=== PATIENT | female | born 1940 | race Caucasian/White ===

== ENCOUNTER → 2020-07-18 07:23 | Outpatient (CLI) | payer MEDICARE, OTHER, SELFPAY ==
--- NOTE | 2020-07-18 | DI.NM.S_ITS ---
PROCEDURE: NM PEPE PERF SPECT R&S PHARM Rest and pharmacological stress myocardial perfusion SPECT with gated imaging and ejection fraction RADIOPHARMACEUTICAL: 12.2 mCi Tc-99m tetrafosmin IV at rest and 25.4 mCi Tc-99m tetrafosmin IV at peak effect of pharmacological stress. Uwa-mry-ynikasdl was performed. INDICATIONS: Encounter for other preprocedural examination TECHNIQUE: Radiopharmaceutical was injected at peak stress test, and also at rest. SPECT images were obtained. SPECT myocardial perfusion images were displayed in short axis, horizontal long axis, and vertical long axis views. Gated images were reviewed using [employer] software. COMPARISON: None. CARDIAC STRESS: A pharmacologic stress test was performed under the supervision of an attending staff, using an infusion of lexiscan 0.4mg IV X1. Hemodynamic data: There is normal blood pressure and heart rate response to pharmacologic stress. Symptoms: The patient denied anginal chest pain. Aminophylline: none EKG: No diagnostic changes of ischemia; no ectopy. FINDINGS: Raw data: There is good myocardial uptake of radiotracer. No significant motion artifacts. Snnd-oq-jxdpy ratio is 0.26 (normal is less than 0.38 for tetrafosmin tracer). Left ventricle function: Gated images demonstrate normal left ventricular wall thickening. No segmental wall motion abnormalities. No transient ischemic dilation. Left ventricle resting end diastolic volume is 67 mL. Left ventricle stress ejection fraction is 84%; normal range is above 45%. Myocardial perfusion: There is normal distribution of activity in the right and left ventricular myocardium. No fixed or reversible perfusion defects. IMPRESSION: Low risk, normal pharmaceutical nuclear stress test 1) No perfusion evidence of ischemia or infarction. 2) Normal left ventricular size, wall motion, and systolic function (EF post stress 84%). 3) No ECG evidence of ischemia. 4) No angina during the study. 5) No prior nuclear stress test available for comparison. Dictated by: Day Fontanez MD on 07/18/2020 at 16:15 Approved by: Day Fontanez MD on 07/18/2020 at 16:17
--- NOTE | 2020-07-18 13:16 | PM.TREADMILL ---
Cardiac Stress Test Report Referral & Results Date Patient Seen: 07/18/20 Time Patient Seen: 13:17 Requesting provider: Day Fontanez Indication: Pre-procedural examination Rest ECG: Sinus rhythm with PACs with nonspecific ST abnormalities Procedure Note: After Lexiscan injection had minimal dyspnea and no chest discomfort. After Lexiscan injection no significant ST changes Rare PVCs Impression: Normal Lexiscan injection Please note: Actual ECG tracings can be found in the PACS system.
== END ==
PROVIDERS: PCP Physician Assistant Medical; Referring Provider Internal Medicine Cardiovascular Disease; Visit Provider Internal Medicine Cardiovascular Disease
DX: Z01.818 Encounter for other preprocedural examination (principal); I25.10 Atherosclerotic heart disease of native coronary artery without angina pectoris; Z95.1 Presence of aortocoronary bypass graft
CPT/HCPCS: 78452; 93017; A9502; J2785

== ENCOUNTER 2020-09-05 12:32 | Inpatient (IN) | payer MEDICARE, OTHER, MEDICAID, SELFPAY ==
[2020-08-28 08:50] VITALS: BMI 33.8
[2020-09-05] VITALS (14 sets, daily range): BP systolic 122–156; BP diastolic 66–97; PULSE 72–94; RESP 10–21; TEMP 35.3–37.1; O2SAT 92–98; BMI 33.8
[2020-09-05] MEDS: LACTATED RINGERS 1,000 ML 42 ML IV ×2 (13:50→17:45)
[2020-09-05] MEDS: GABAPENTIN 300 MG CAPSULE PO (13:51)
[2020-09-05] MEDS: ACETAMINOPHEN 325 MG TABLET 975 MG PO (13:51)
[2020-09-05 13:52] LABS: COVID19 -Nasal RAPID Negative (Negative)
--- NOTE | 2020-09-05 15:35 | PM.PREOP ---
Pre-operative Note COVID-19 COVID-19 status: Negative Result date/Date tested (Pos, Neg/Pending): 09/03/20 Interval Note History & Physical reviewed/Exam performed by Physician: Yes Changes to H&P: No
[2020-09-05] MEDS: CEFAZOLIN 1 GM VIAL 2 GM IV ×2 (16:24→20:19)
--- NOTE | 2020-09-05 16:45 | SUR.OPER ---
Prone on spine table, head in foam head support, padded chest and pelvic supports, gel pad at knees, lower legs supported by pillows; nipples, genitalia and toes free of pressure, arms secured on foam padded arm boards at <90 degrees abduction. Tape over blanket at thigh secured to table.
[2020-09-05] MEDS: BUPIVACAINE LIPOSOME 266 MG/20 ML VIAL INJ (16:52)
[2020-09-05] MEDS: BUPIVACAINE 0.25% (PF) VIAL 30 ML INJ (16:52)
--- NOTE | 2020-09-05 18:23 | DI.RAD.S_ITS ---
PROCEDURE: XR LUMBAR SPINE 2-3V INDICATIONS: L4-5 TLIF TECHNIQUE: 2 intraoperative fluoroscopic spot films were obtained COMPARISON: None. FINDINGS: Two intraoperative fluoroscopic spot films show posterior shahnaz and screw instrumentation at L4 and L5 with interbody spacer in place. IMPRESSION: Fluoroscopic guidance Dictated by: Vern Diaz M.D. on 09/05/2020 at 18:00 Approved by: Vern Diaz M.D. on 09/05/2020 at 18:07
--- NOTE | 2020-09-05 18:32 | P.OP_ITS ---
Operative Date/Time/Diagnoses Date of procedure: 09/05/20 Time of procedure: 18:32 Pre-op diagnosis: 1. L4-5 spondylolisthesis 2. 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 L4-5 spondylosis with radiculopathy 4. L4-5 spinal stenosis 5. Retained non-functional spinal cord stimulator causing pain Post-op diagnosis: same Procedure & Clinicians Procedure: 1. L4-5 Postero-lateral and posterior interbody fusion 2. L4-5 interbody cage placement. 3. L4-5 decompressive laminectomy with bilateral facetecomies 4. L4-5 Posterior non-segmental instrumentation 5. [place] of bone marrow from iliac crest 6. Utilization of microsurgical technique and operating microscope 7. Removal of spinal cord stimulator and electric leads Same procedure as scheduled: Yes Indications: Patient has been having chronic back pain and worsening lumbar radiculopathy. Patient had previous laminectomy with no significant improvement of her symptoms with worsening leg pain and back pain. Patient had a nonfunctional spinal cord stimulator since 2017 with pain secondary to soft tissue irritation due to the spinal cord stimulator. Patient failed multiple conservative management with worsening pain weakness and numbness in her lower extremity. Patient has been having difficulty performing activity of daily living. After discussing risks benefits of treatment options, patient elected proceed with surgery. Surgeon: Jeanette Batres Guard Entrance Registrar: Amari Griffith Click Yes if Unassisted: No Anesthesia Type: General Operative Notes Closure Type: primary Specimen(s): none sent Prosthetic devices, grafts, tissues, transplants, or devices: Globus revolve screws, Rise cage Estimated Blood Loss (mL): 50 Blood products transfused: none Procedure in detail: Patient was seen in the preoperative area. Risks and benefits of the surgery was discussed with the patient. Informed consent was obtained from the patient and placed in the chart. Surgical site was marked. Patient was taken to the operative room. General anesthesia was administered. Prophylactic antibiotic was given to the patient less than 30 min before the incision was made. Patient was placed into a prone position on the Agus table. Patient's back was then prepped and draped in the sterile fashion. Time- out was performed at this time. Using AP and lateral C-arm imaging the interval between L4-5 was identified and marked on patient's back. A 2 inch incision 2 in from midline was made on the right side first. The fascia was incised in line with skin incision. Globus MARS retractors was placed inside the incision and docked onto the L4 lamina. Using microsurgical technique and operating microscope, a L4 laminectomy and L4- 5 facetectomy was performed using a Kerrison rongeur. Patient was found to have severe central and neural foramen stenosis at L4-5 level which was fully decompressed after the laminectomy and facetectomy was completed. The disc space at L4-5 was identified. And a total diskectomy was performed at L4-5 level. The endplates were decorticated using a rasp and shaver. The total diskectomy and decortication was performed at L4-5 level in order to to accomplish a L4-5 fusion. The local bone from the laminectomy and facetectomy was saved for local bone grafting. After the total diskectomy and decortication was completed, Trifecta bone graft material was combined with local bone that was harvested earlier. At this time, a separate skin is incision was made over the iliac crest. A Jamshidi needle was inserted into the iliac crest through a separate skin incision. 5 cc of bone marrow aspiration was obtained through the separate skin incision using a Jamshidi needle from the iliac crest. The bone marrow aspiration was combined with local bone and the Trifecta bone grafting material. The bone grafting material was placed into the L4-5 interbody space along with a expandable cage. The cage was expanded to its maximum height using the torque limiting screwdriver. At this time a mirror image incision was made on the left side. The fascia was incised in line with the skin incision. Globus MARS retractor was inserted and docked onto the L4-5 posterolateral gutter. Using the power drill, posterior- lateral decortication was performed at L4-5 level until bleeding cortical bone was identified. The remaining bone grafting material was placed into the L4-5 posterior lateral gutter he order to accomplish posterolateral fusion at the L4- 5 level. Using the double C-arm technique, pedicle screws were placed into the L4-5 pedicles bilaterally. This was done by placing the Jamshidi needle into the pedicles, then placing the guidewires over the Jamshidi needle, and finally placing the cannulated screws over the guidewires bilaterally. After the pedicle screws were placed, 2 titanium rods was locked into the heads of the pedicle screws using locking caps and torque limiting screwdriver. The right-sided incision was extended cephalad approximately 2 in in order to identify the electric leads of the spinal cord stimulator. The leads was found to be wrapped into a bundle and scarred into the subcutaneous tissue. Using both the Bovie and scissors, the electrode leads was freed from the soft tissue. The lead was followed laterally until we reached the spinal cord stimulator device. Dissection was made around this device in order to free it up and was removed from the subcutaneous tissue without any difficulty. The electric lead was not in the spinal canal as expected as shown on the CT scan. After all the hardware was placed, and confirmed with AP and lateral C-arm imaging, the wound was then irrigated with sterile normal saline and packed with Ray-Evette gauze for 3 min to accomplish hemostasis. After the gauze was removed the deep fascia was closed with #1 Vicryl suture. The subcutaneous layer was closed with 2-0 Vicryl. The skin was closed with skin netta. Patient tolerated the procedure well. There were no complications. Complications: none Post-operative Condition: stable Disposition: PACU Plan for aftercare: Admit to inpatient hospital
[2020-09-05] MEDS: fentaNYL 100 MCG/2 ML INJ IV (18:50)
[2020-09-05] MEDS: OXYCODONE IR 5 MG TABLET PO (19:09)
--- NOTE | 2020-09-05 19:39 | SUR.PHASEI ---
Upper dentures and sunglasses returned to pt. All other belongings brought to pt room. Report called to ABHISHEK Feng. Pt transferred to room 212 in stable condition. Received in room by ABHISHEK Guerra.
[2020-09-05] MEDS: SODIUM CHLORIDE 0.9% 1,000 ML 100 ML IV (20:14)
[2020-09-05] MEDS: OXYCODONE IR 5 MG TABLET 10 MG PO (20:18)
[2020-09-05] MEDS: ALPRAZolam 0.5 MG TABLET PO (20:18)
[2020-09-05] MEDS: ATORVASTATIN 20 MG TABLET 10 MG PO (20:20)
[2020-09-05] MEDS: SENNOSIDES 8.6 MG TABLET 17.2 MG PO (20:20)
[2020-09-05] MEDS: CARBIDOPA-LEVODOPA 25/100 TABLET 1 EACH PO (20:20)
[2020-09-05] MEDS: GABAPENTIN 100 MG CAPSULE PO (20:20)
[2020-09-05] MEDS: DOCUSATE 100 MG CAPSULE PO (20:20)
[2020-09-05] MEDS: ALBUTEROL 2.5 MG/3 ML NEB (ADULT) INH (22:20)
[2020-09-06] VITALS (8 sets, daily range): BP systolic 108–137; BP diastolic 67–93; PULSE 75–85; RESP 16–18; TEMP 36.1–36.6; O2SAT 95–98
[2020-09-06] MEDS: hydrOXYzine pamoate 25 MG CAPSULE PO ×4 (00:17→22:20)
[2020-09-06] MEDS: OXYCODONE IR 5 MG TABLET 10 MG PO ×4 (01:15→22:19)
[2020-09-06] MEDS: CEFAZOLIN 1 GM VIAL 2 GM IV (05:53)
[2020-09-06 06:11] LABS: Hematocrit 33.2 % (36-46); Hemoglobin 11.4 g/dL (12.0-16.0)
[2020-09-06] MEDS: CARBIDOPA-LEVODOPA 25/100 TABLET 1 EACH PO ×3 (08:31→16:18)
[2020-09-06] MEDS: DOCUSATE 100 MG CAPSULE PO ×2 (08:32→22:13)
[2020-09-06] MEDS: OXYBUTYNIN 5 MG ER TAB 10 MG PO (08:33)
[2020-09-06] MEDS: GABAPENTIN 100 MG CAPSULE PO ×3 (08:33→22:12)
[2020-09-06] MEDS: lisinopriL 10 MG TABLET PO (08:34)
--- NOTE | 2020-09-06 10:10 | PT.IIE ---
Current Diagnoses Spondylolisthesis, lumbar region (09/05/20) Spinal stenosis, lumbar region with neurogenic claudication (09/05/20) Postlaminectomy syndrome, not elsewhere classified (09/05/20) Surgery Performed Operation Date: 09/05/20 14:45 Actual Procedures p L4-5 TLIF and Removal of Spinal Cord Stimulator - Jeanette Batres MD Medical History (Last Reviewed 09/06/20 @ 10:51 by Amari Griffith PA-C) Gait instability HLD (hyperlipidemia) HTN (hypertension) Lumbar radiculopathy Right foot drop Physical Therapy Inpatient Evaluation/Re-Eval M1 PT/OT-IP Prior Functional Status Start: 09/06/20 13:04 Freq: NEEDED Status: Active Protocol: Document 09/06/20 13:04 CGR (Rec: 09/06/20 13:35 CGR [id number]) Medical Review Prior Functional Status Medical History Reviewed Yes Communication Pt is an effective verbal communicator. Mobility and Gait Pt states that she was bedbound at her assisted living. Pt used the marlene lift because staff was uncomfortable with transfers from a hx of falls. Activities of Daily Living and IADL's Pt was dependent at her baseline. Social History Household Members other Living Arrangements Assisted Living Home Equipment Manual Wheelchair,Power Wheelchair/Scooter,Bedside Commode Additional Social History Comment B bed canes. Pt has a broken electric w/c at this time. M2 PT-IP Current Condition Start: 09/06/20 13:20 Freq: NEEDED Status: Active Protocol: Document 09/06/20 10:10 AB (Rec: 09/06/20 13:43 AB [id number]) Physical Therapy Current Condition Current Condition Evaluation Date 09/06/20 Treatment Diagnosis s/p L4-5 fusion; difficulty in walking Precautions Lumbar Precautions Log Roll,No Twisting,Limit Bending,Lifting Restriction of 10 lbs,Gait Belt above Incisional Area M3 PT-IP Subjective Start: 09/06/20 13:20 Freq: NEEDED Status: Active Protocol: Document 09/06/20 10:10 AB (Rec: 09/06/20 13:43 AB [id number]) Subjective Physical Therapy Visit Type Type Initial Evaluation Visit Start Time 10:10 Visit Stop Time 11:20 Total Visit Minutes 70 Number of EDITORIAL SPECIALIST Visits 0 Physical Therapy Visit Comments Patient Comments pt is agreeable to do PT Therapy Pain Assessment Pain When Pain Assessed At Rest Pain Present Pain Present Pain Reported Location Bilateral Leg Scale Used increases with mobility, pain scale not stated Pain Management Techniques Distraction,Modification of Treatment,Re-positioning, Timing of Activity with Medications back Intensity 3 Scale Used Numeric (0 - 10) M4 PT-IP Mobility and Gait Start: 09/06/20 13:20 Freq: NEEDED Status: Active Protocol: Document 09/06/20 10:10 AB (Rec: 09/06/20 13:43 AB [id number]) PT-Bed Mobility Assessment Rolling Level of Assist Maximal Assistance,2 Person Assistance Supine to Sit Supine to Sit Maximum Assistance,2 Person Assistance,Bedrails Scooting Scooting to Edge of Bed Maximum Assistance PT-Transfer Assessment Sit to and From Stand Sit to and from Stand Moderate Assistance,2 Person Assistance,Use of Upper Extremities Equipment Transfer Assistive Device Gait Belt,Front Wheeled Walker Orthotic/Prosthetic Devices or Brace: No Transfers Transfer Destination Chair Transfer Technique Stand Step Pivot Transfer Ability Level of Assist Moderate Assistance,2 Person Assistance,Use of Upper Extremities Comments Mobility Comments educated pt on back precautions and log roll bed mobility. pt stated that her brief needs to be changed first before she gets up and NAC in room to assist. PT was able to complete rolling L<>R max A x 2 and max cues. OT came in afterwards to assist. pt completed log roll bed mobility supine to sit max A x 2 and max cues. pt was able to sit on EOB initially with mod to max A with increase posterior leaning. positioned pt on the bed and required max A x 2 for scooting to EOB. pt was able to sit with CGA. pt completed sit to stand mod A x 2 and cues and completed step transfer to chair mod A x 2 and max cues. pt agreed to ambulate and completed ~ 7 ft mod A x 2 and cues. presents with decrease JOSÉ MIGUEL with RLE crossing over midline. required assist with weight shifting to be able to move RLE forward. pt agreed to sit up on chair. c/o BLE pain but stated that she will try to stay up for lunch but wants PT immendiately after for her to get up to bed. positioned pt on the chair. call light and table placed within reach. Gait Assessment Gait Gait Assistance Required: Moderate Assistance,2 Person Assist Distance (Feet) 7 Able to Maintain Weight Bearing Status Yes During Gait Assistive Devices Assistive Device Gait Belt,Front Wheeled Walker Orthotic/Prosthetic Devices or Brace: No Gait Deviations General Gait Pattern Antalgic,Decreased Stride Length,Decreased Feet Clearance,Flexed Trunk,Step-to Gait Factors Limiting Gait Function Factors Limiting Gait Function Decreased Activity Tolerance, Decreased Sensation,Decreased Strength,Limited Range of Motion,Pain,Poor Balance,Poor Safety Awareness Comments Gait Comments pls refer to mobility section for details PT-Balance Assessment Sitting Balance and Reactions Static Sitting Balance Ability Fair Dynamic Sitting Balance Ability Poor Standing Balance and Reactions Static Standing Balance Ability Poor Dynamic Standing Balance Ability Poor Device Used FWW M5 PT-IP Objective Assessments Start: 09/06/20 13:20 Freq: NEEDED Status: Active Protocol: Document 09/06/20 10:10 AB (Rec: 09/06/20 13:43 AB [email or web address]) Orientation Orientation/Cognition Level of Alertness Alert Orientation Name,Situation Safety Awareness Decreased Safety Awareness Memory Description Short Term Impaired Gross Range of Motion Lower Extremity ROM Assessment Right Impaired Impairments RLE tightness noted with decreas hip/knee flexion decrease R ankle ROM Strength Lower Extremity Strength Assessment Bilaterally Impaired Comments Strength Comments LLE: 3+/5 RLE: 3-/5 Sensation Assessment Sensation Gross Sensation Right LE Impaired,Left LE Impaired Sensation Description Numbness Other Assessments Other Other Assessments slight rigidity noted on RLE with tightness /resistance during flexion ROM M6 PT-IP Treatment Start: 09/06/20 13:20 Freq: NEEDED Status: Active Protocol: Document 09/06/20 10:10 AB (Rec: 09/06/20 13:43 AB [email or web address]) Physical Therapy Treatment Education Education Provided Precautions,Weight Bearing Status,Post-Op Packet,Safety M7 PT-IP Assessment and Plan Start: 09/06/20 13:20 Freq: NEEDED Status: Active Protocol: Document 09/06/20 10:10 AB (Rec: 09/06/20 13:43 AB [email or web address]) PT Summary Assessment and Plan Potential Rehabilitation Potential Good Status of Condition at Evaluation Evolving Summary Impairments Pain,ROM,Strength,Balance, Coordination,Sensation,Tone, Cognition,Bed Mobility, Transfers,Gait,Activity Tolerance Assessment Summary pt requiring max A x 2 for bed mobility and mod A x2 for transfers and ambulation using FWW. pt will benefit from SNF rehab to improve strength and mobility. Goals Bed Mobility Goal Minimal Assistance Transfer Goal Minimal Assistance,Front Wheeled Walker Gait Goal Minimal Assistance,Front Wheel Walker Gait Distance 50 Other Goals improve bed mobility and transfers using FWW SBA improve ambulation using FWW SBA 100 ft Days to Meet Goals 10 Frequency of Treatment Frequency Of Treatment Twice a Day Treatment Plan Physical Therapy Treatment Plan Bed Mobility Training,Transfer Training,Gait Training, Therapeutic Exercise,Balance Retraining,Post Op Education, Discharge Planning,Hot or Cold Pack,Neuromuscular Re-ed, Coordination Retraining,Manual Therapy Precautions Lumbar Precautions Log Roll,No Twisting,Limit Bending,Lifting Restriction of 10 lbs,Gait Belt above Incisional Area Recommendations To Nursing Amount of Assist Needed 2 Person Assist Discharge Recommendations PT Discharge Recommendations SNF Rehab Transportation Needs at Discharge Wheelchair/Cabulance
--- NOTE | 2020-09-06 10:49 | PM.PNPO.1 ---
Subjective Subjective Date Patient Seen: 09/06/20 Time Patient Seen: 10:49 Interval history: Pain is [id number]. Denies fever or chills. No nausea or vomiting. Exam Vital Signs (past 8 hours): - 09/06/20 03:00 09/06/20 08:00 09/06/20 08:34 Temperature 97.0 F L 97.6 F Pulse Rate 85 85 75 Respiratory Rate 18 18 Blood Pressure 133/84 137/93 H 137/93 H Pulse Oximetry 96 95 Oxygen Delivery Method Nasal Cannula Oxygen Flow Rate 0 Narrative Exam Narrative: 80-year-old female resting comfortably in bed in no apparent distress. Lumbar dressing shows scant drainage. Both legs are warm and dry. Patient requires 2 person assist to roll on side to check her dressing. Const General: cooperative Objective Labs Result Diagrams: 09/06/20 06:00 Labs: Laboratory Results - last 24 hr 09/05/20 09/06/20 13:28 06:00 Hgb 11.4 L Hct 33.2 L SARS-CoV-2 (PCR) Negative PFSH Medical History Gait instability HLD (hyperlipidemia) HTN (hypertension) Lumbar radiculopathy Right foot drop Surgical History H/O heart bypass surgery H/O lumbosacral spine surgery Family History Father Heart disease, congenital Mother Congestive heart failure Social History household members: other Smoking Status: Never smoker alcohol intake: never Assessment & Plan Post-op Postoperative Procedures: Procedures Operation Date: 09/05/20 14:45 Actual Procedure Side Surgeon p L4-5 TLIF and Removal of Spinal Cord Stimulator Jeanette Batres MD Postoperative day: 1 Postoperative status narrative: Stable status post surgery. Postoperative plan narrative: Mobilize with physical therapy. Limit bending, twisting, lifting. Likely discharge 1-2 days detention facility versus home.
--- NOTE | 2020-09-06 11:14 | OT.IP.EVAL ---
Current Diagnoses Spondylolisthesis, lumbar region (09/05/20) Spinal stenosis, lumbar region with neurogenic claudication (09/05/20) Postlaminectomy syndrome, not elsewhere classified (09/05/20) Surgery Performed Operation Date: 09/05/20 14:45 Actual Procedures p L4-5 TLIF and Removal of Spinal Cord Stimulator - Jeanette Batres MD Past Medical History (Last Reviewed 09/06/20 @ 10:51 by Amari Griffith PA-C) Gait instability H/O heart bypass surgery H/O lumbosacral spine surgery HLD (hyperlipidemia) HTN (hypertension) Lumbar radiculopathy Right foot drop Surgical History (Last Reviewed 09/06/20 @ 10:51 by Amari Griffith PA-C) H/O heart bypass surgery H/O lumbosacral spine surgery Occupational Therapy Inpatient Evaluation/Re-Eval M1 PT/OT-IP Prior Functional Status Start: 09/06/20 13:04 Freq: NEEDED Status: Active Protocol: Document 09/06/20 13:04 CGR (Rec: 09/06/20 13:35 CGR [id number]) Medical Review Prior Functional Status Medical History Reviewed Yes Communication Pt is an effective verbal communicator. Mobility and Gait Pt states that she was bedbound at her assisted living. Pt used the marlene lift because staff was uncomfortable with transfers from a hx of falls. Activities of Daily Living and IADL's Pt was dependent at her baseline. Social History Household Members other Living Arrangements Assisted Living Home Equipment Manual Wheelchair,Power Wheelchair/Scooter,Bedside Commode Additional Social History Comment B bed canes. Pt has a broken electric w/c at this time. M2 OT-IP Current Condition Start: 09/06/20 13:04 Freq: Status: Active Protocol: Document 09/06/20 13:04 CGR (Rec: 09/06/20 13:35 CGR [id number]) Occupational Therapy Current Condition Current Condition Evaluation Date 09/06/20 Treatment Diagnosis L4-5 TLIF Diagnosis Onset Date 09/05/20 Post Operative Precautions Lumbar Precautions Log Roll,No Twisting,Limit Bending,Lifting Restriction of 10 lbs,Gait Belt above Incisional Area M3 OT- IP Subjective and Pain Start: 09/06/20 13:04 Freq: Status: Active Protocol: Document 09/06/20 13:04 CGR (Rec: 09/06/20 13:35 CGR [id number]) OT- Subjective Occupational Therapy Visit Type Type Initial Evaluation Visit Start Time 10:44 Visit Stop Time 11:14 Total Visit Minutes 30 Notes co-treat with P.T. OT Pain Assessment Pain When Pain Assessed At Rest Pain Present Pain Present Pain Reported Location back Intensity 3 Scale Used Numeric (0 - 10) Management Techniques Modification of Treatment,Re- positioning,Timing of Activity with Medications M4 OT- IP ADL's Start: 09/06/20 13:04 Freq: Status: Active Protocol: Document 09/06/20 13:04 CGR (Rec: 09/06/20 13:35 CGR [id number]) OT [id number] Comments OT Self-Feeding Comments not meal time OT ADL-Grooming Comments OT Grooming Comments Pt declined OT ADL-Oral Care Comments Oral Care Comments Not performed OT ADL-Dressing General Eval Lower Body Dressing Ability Total Assistance Areas Needing Assistance Socks OT ADL-Toileting Comments OT Toileting Comments Not performed OT ADL-Bathing Comments OT Bathing Comments Not performed M5 OT- IP IADL's Start: 09/06/20 13:04 Freq: Status: Active Protocol: Document 09/06/20 13:04 CGR (Rec: 09/06/20 13:35 CGR [id number]) OT-Instrumental Activities of Daily Living Deficits IADL Deficits Identified Deficits Home Safety Awareness Awareness of Need for Assistance at Home Good Awareness Ability to Problem Solve Emergency Able to Problem Solve Situations Medication Management Medication Management Caregiver Administers Money Management Money Management No Deficits Identified Meal Preparation Meal Preparation Caregiver Provides Assist Naprapath Naprapath Caregiver Provides Assist Driving Driving Comments Pt is not an active sales route driver M6 OT- IP Functional Cognition Start: 09/06/20 13:04 Freq: Status: Active Protocol: Document 09/06/20 13:04 CGR (Rec: 09/06/20 13:35 CGR [id number]) Cognitive Factors Limiting Selfcare Function Cognitive Ability Level of Alertness Alert Patient Orientation Name,Age,Birthday,Month,Date, Year,Day of Week,Place, Situation Attention Span Ability Capable of Focused Attention, Capable of Sustained Attention OT- Vision and Hearing OT- Hearing Assessment OT- Hearing Assessment Hearing Impaired OT- Vision Assessment Visual Acuity Glasses All The Time,Glasses For Reading Visual Attentiveness WFL Occular Pursuits WFL Visual Convergence WFL Vision Assessment Comments Pt wears sun glasses d/t light sensitivity. Pt uses readers. M7 OT- IP Mobility and Balance Start: 09/06/20 13:04 Freq: Status: Active Protocol: Document 09/06/20 13:04 CGR (Rec: 09/06/20 13:35 CGR [id number]) OT- Bed Mobility Assessment Rolling Type of Rolling Log Rolling,Roll to Left Level of Assistance Maximum Assistance,2 Person Assistance Supine to Sit Supine to Sit Assist Maximum Assistance,2 Person Assistance Scooting Scooting to Edge of Bed Maximum Assistance,2 Person Assistance OT-Transfer Assessment Sit to and From Stand Sit to and from Stand Moderate Assistance,2 Person Assistance Transfers Transfer Ability Moderate Assistance,2 Person Assistance Technique Transfer Destination Bed,Chair Transfer Technique Stand Step Pivot Devices Transfer Assistive Devices Gait Belt,Front Wheeled Walker Comments Mobility Comments bed to chair with 3-4 steps OT- Gait Assessment Gait Gait Assistance Required: Moderate Assistance,2 Person Assist Assistive Devices Assistive Device Gait Belt,Front Wheeled Walker Comments Gait Ability Comments second person for safety and close chair follow. OT- Balance Assessment Sitting Balance and Reactions Static Sitting Balance Ability Fair Dynamic Sitting Balance Ability Fair M8 OT- IP Objective Assessments Start: 09/06/20 13:04 Freq: Status: Active Protocol: Document 09/06/20 13:04 CGR (Rec: 09/06/20 13:35 CGR [id number]) OT Gross Range of Motion Upper Extremity Range of Motion Assessment Bilaterally Impaired ROM Impairments Pt with significant crepitus to B shlds. OT Strength Upper Extremity Strength Assessment Bilaterally Impaired Comments Strength Comments B shld 3+/5, arms and hands 4/ 5 OT- Coordination Assessment Upper Extremity Finger to Nose Test Within Functional Limits Finger Tapping Test Within Functional Limits OT-Muscle Tone Assessment Muscle Tone WNL Yes OT Sensation Assessment Edema Edema Absent M9 OT- IP Assessment and Plan Start: 09/06/20 13:04 Freq: Status: Active Protocol: Document 09/06/20 13:04 CGR (Rec: 09/06/20 13:35 CGR [id number]) OT Summary Assessment and Plan Potential Rehabilitation Potential Good Analytic Complexity at Evaluation High Summary OT Impairments Pain,Range of Motion,Strength, Balance,Functional Mobility, Grooming,Dressing,Toileting, Bathing,Toilet Transfers, Shower Transfers,Activity Tolerance Progress Towards Goals Slow Progress due to Pain,Slow Progress due to Medical Issues Assessment Summary Pt presents as a high complexity evaluation s/p admit for L4-5 TLIF. Pt states that she was bedbound at her assisted living facility but was able to mobilize with mod to max x 2 today. Pt will continue to benefit from therapy services and will need SNF upon discharge. Goals Grooming Goal Independent Dressing Goal Independent Toileting Goal Independent Bathing Goal Independent Toilet Transfer Goal Independent Shower Transfer Goal Independent Days to Meet Goals 30 Frequency of Treatment Frequency Of Treatment Once a Day Treatment Plan OT Treatment Plan ADL Training,Functional Mobility,Patient/Family Education,Discharge Planning Other Treatment Recommendations and Next ADLs at sink Treatment Focus Discharge Recommendations OT Discharge Recommendations SNF Rehab Transportation Needs at Discharge Wheelchair/Cabulance
--- NOTE | 2020-09-06 12:09 | CM.DANOTE ---
Addendum entered by Emili Albright R.N. 09/06/20 13:30: [facility] well. Original Note: DCP: Case received, EMR reviewed and met with patient. Introduced self and role. Was able to obtain information from patient regarding her baseline activity status prior to surgery, as well as her current living situation. DCP assessment completed with information currently available. Patient is a 80 year old female who admitted yesterday morning to the care of the orthopedic team. PCP: Dr. Soliz. Payer: confirmed: Medicare/[employer] for [employer]. Patient came to the hospital via private vehicle for a surgical procedure. She had L4-5 postero-lateral posterior interbody fusion. Patient has had chronic history of back pain secondary to her spinal stenosis. According to notes, patient spends most of her time in bed. She resides at [facility] in [place]. Met with patient in her room. She was sitting up in bed, alert and oriented. She indicated and confirmed that she does live at [facility], has been there for approximately 2 years. She indicated that they use a hoier at her baseline for transfers. Discussed discharge planning. Patient stated, she really wants rehab before going back to her facility. Let her know that many skilled facilities are filling up, but can go ahead and initiate a referral. Patient has no preferences upon facilities, just wants rehab. Confirmed with Ant in UR, that patient most likely will make inpatient status. Called over at [facility] and spoke to Nubia in admissions. Asked her to review patient. She anticipates a bed opening by Tuesday or Tue. Will send referral to other facilities as well. Emili Albright RN/Fleshing Machine Operator
--- NOTE | 2020-09-06 13:27 | PT.IPTN ---
Current Diagnoses Spondylolisthesis, lumbar region (09/05/20) Spinal stenosis, lumbar region with neurogenic claudication (09/05/20) Postlaminectomy syndrome, not elsewhere classified (09/05/20) Surgery Performed Operation Date: 09/05/20 14:45 Actual Procedures p L4-5 TLIF and Removal of Spinal Cord Stimulator - Jeanette Batres MD Physical Therapy Treatment Note M2 PT-IP Current Condition Start: 09/06/20 13:20 Freq: NEEDED Status: Active Protocol: Document 09/06/20 10:10 AB (Rec: 09/06/20 13:43 AB [id number]) Physical Therapy Current Condition Current Condition Evaluation Date 09/06/20 Treatment Diagnosis s/p L4-5 fusion; difficulty in walking Precautions Lumbar Precautions Log Roll,No Twisting,Limit Bending,Lifting Restriction of 10 lbs,Gait Belt above Incisional Area M3 PT-IP Subjective Start: 09/06/20 13:20 Freq: NEEDED Status: Active Protocol: Document 09/06/20 13:16 CLB (Rec: 09/06/20 14:45 CLB [id number]) Subjective Physical Therapy Visit Type Type Treatment Note Visit Start Time 13:16 Visit Stop Time 13:27 Total Visit Minutes 11 Notes TILE EDGER present to assist with transfer. Number of ENVIRONMENTAL RESEARCH PROJECT MANAGER Visits 1 Physical Therapy Visit Comments Patient Comments Pt wanting to get back into bed. Therapy Pain Assessment Pain When Pain Assessed At Rest Pain Present Pain Present Pain Reported Location back Intensity 4 Scale Used Numeric (0 - 10) M4 PT-IP Mobility and Gait Start: 09/06/20 13:20 Freq: NEEDED Status: Active Protocol: Document 09/06/20 13:16 CLB (Rec: 09/06/20 14:45 CLB [id number]) PT-Bed Mobility Assessment Supine to Sit Supine to Sit Maximum Assistance,2 Person Assistance Scooting Scooting Up and Down in Bed Dependent PT-Transfer Assessment Sit to and From Stand Sit to and from Stand Moderate Assistance,2 Person Assistance,Use of Upper Extremities Equipment Transfer Assistive Device Gait Belt,Front Wheeled Walker Orthotic/Prosthetic Devices or Brace: No Transfers Transfer Destination Chair Transfer Technique Stand Step Pivot Transfer Ability Level of Assist Moderate Assistance,1 Person Assistance,Use of Upper Extremities Comments Mobility Comments Pt performed sit-stand and ambulated ~7ft with FWW/Mod A x2 for safety. Pt required cues for step sequencing and required assist with advancing RLE. Pt sat on bed with cues for reaching back to control descent. Pt dependent for sit- supine. Pt left in bed with all needs within reach. Gait Assessment Gait Gait Assistance Required: Moderate Assistance,2 Person Assist Distance (Feet) 7 Able to Maintain Weight Bearing Status Yes During Gait Assistive Devices Assistive Device Gait Belt,Front Wheeled Walker Orthotic/Prosthetic Devices or Brace: No Gait Deviations General Gait Pattern Antalgic,Decreased Stride Length,Decreased Feet Clearance,Flexed Trunk,Step-to Gait Factors Limiting Gait Function Factors Limiting Gait Function Decreased Activity Tolerance, Decreased Sensation,Decreased Strength,Limited Range of Motion,Pain,Poor Balance,Poor Safety Awareness Comments Gait Comments pls refer to mobility section for details M5 PT-IP Objective Assessments Start: 09/06/20 13:20 Freq: NEEDED Status: Active Protocol: Document 09/06/20 10:10 AB (Rec: 09/06/20 13:43 AB [id number]) Orientation Orientation/Cognition Level of Alertness Alert Orientation Name,Situation Safety Awareness Decreased Safety Awareness Memory Description Short Term Impaired Gross Range of Motion Lower Extremity ROM Assessment Right Impaired Impairments RLE tightness noted with decreas hip/knee flexion decrease R ankle ROM Strength Lower Extremity Strength Assessment Bilaterally Impaired Comments Strength Comments LLE: 3+/5 RLE: 3-/5 Sensation Assessment Sensation Gross Sensation Right LE Impaired,Left LE Impaired Sensation Description Numbness Other Assessments Other Other Assessments slight rigidity noted on RLE with tightness /resistance during flexion ROM M6 PT-IP Treatment Start: 09/06/20 13:20 Freq: NEEDED Status: Active Protocol: Document 09/06/20 10:10 AB (Rec: 09/06/20 13:43 AB [id number]) Physical Therapy Treatment Education Education Provided Precautions,Weight Bearing Status,Post-Op Packet,Safety M7 PT-IP Assessment and Plan Start: 09/06/20 13:20 Freq: NEEDED Status: Active Protocol: Document 09/06/20 13:16 CLB (Rec: 09/06/20 14:45 CLB [id number]) PT Summary Assessment and Plan Potential Rehabilitation Potential Good Status of Condition at Evaluation Evolving Summary Impairments Pain,ROM,Strength,Balance, Coordination,Sensation,Tone, Cognition,Bed Mobility, Transfers,Gait,Activity Tolerance Assessment Summary Pt requires Mod A x2 for sit- stand and Min A x2 for gait with chair follow and dependent for bed mobility. Pt will benefit from SNF rehab to improve strength and mobility. Goals Bed Mobility Goal Minimal Assistance Transfer Goal Minimal Assistance,Front Wheeled Walker Gait Goal Minimal Assistance,Front Wheel Walker Gait Distance 50 Other Goals improve bed mobility and transfers using FWW SBA improve ambulation using FWW SBA 100 ft Days to Meet Goals 10 Frequency of Treatment Frequency Of Treatment Twice a Day Treatment Plan Physical Therapy Treatment Plan Bed Mobility Training,Transfer Training,Gait Training, Therapeutic Exercise,Balance Retraining,Post Op Education, Discharge Planning,Hot or Cold Pack,Neuromuscular Re-ed, Coordination Retraining,Manual Therapy Other Recommendations and Next Treatment increase gait as able, bed Focus mobility Precautions Lumbar Precautions Log Roll,No Twisting,Limit Bending,Lifting Restriction of 10 lbs,Gait Belt above Incisional Area Recommendations To Nursing Amount of Assist Needed 2 Person Assist Discharge Recommendations PT Discharge Recommendations SNF Rehab Transportation Needs at Discharge Wheelchair/Cabulance
[2020-09-06] MEDS: ACETAMINOPHEN 325 MG TABLET 650 MG PO (17:54)
[2020-09-06] MEDS: ALPRAZolam 0.5 MG TABLET PO (22:12)
[2020-09-06] MEDS: SENNOSIDES 8.6 MG TABLET 17.2 MG PO (22:12)
[2020-09-06] MEDS: ATORVASTATIN 20 MG TABLET 10 MG PO (22:13)
--- NOTE | 2020-09-06 23:01 | PC.NURSE ---
IS performed independently, per pt self-report.
--- NOTE | 2020-09-06 23:43 | PC.NURSE ---
A&Ox4, VSS throughout shift. Pt. declined to get OOB. Repositioned twice when pt. allowed. Incontinent, wearing brief. Reports pain level of 3 but wishes to receive ordered oxycodone, with vistaril, every 6 hours for now. Declined to wear SCD's.
[2020-09-07 01:30] VITALS: BP 113/68; PULSE 85; RESP 18; TEMP 36.2; O2SAT 93
[2020-09-07] MEDS: OXYCODONE IR 5 MG TABLET 10 MG PO ×2 (04:11→09:13)
[2020-09-07] MEDS: hydrOXYzine pamoate 25 MG CAPSULE PO ×2 (04:14→17:15)
[2020-09-07 04:37] VITALS: BP 120/79; PULSE 84; RESP 18; TEMP 36.4; O2SAT 92
[2020-09-07] MEDS: CARBIDOPA-LEVODOPA 25/100 TABLET 1 EACH PO ×3 (06:55→16:05)
[2020-09-07] MEDS: lisinopriL 10 MG TABLET PO (09:13)
[2020-09-07] MEDS: OXYBUTYNIN 5 MG ER TAB 10 MG PO (09:13)
[2020-09-07] MEDS: SODIUM CHLORIDE 0.9% FLUSH 10 ML IV ×2 (09:13→21:36)
[2020-09-07] MEDS: GABAPENTIN 100 MG CAPSULE PO ×3 (09:13→21:37)
[2020-09-07] MEDS: DOCUSATE 100 MG CAPSULE PO ×2 (09:13→21:37)
[2020-09-07 10:00] VITALS: BP 122/69; PULSE 86; RESP 16; TEMP 36.6; O2SAT 92
--- NOTE | 2020-09-07 10:04 | PT.IPTN ---
Current Diagnoses Spondylolisthesis, lumbar region (09/05/20) Spinal stenosis, lumbar region with neurogenic claudication (09/05/20) Postlaminectomy syndrome, not elsewhere classified (09/05/20) Surgery Performed Operation Date: 09/05/20 14:45 Actual Procedures p L4-5 TLIF and Removal of Spinal Cord Stimulator - Jeanette Batres MD Physical Therapy Treatment Note M2 PT-IP Current Condition Start: 09/06/20 13:20 Freq: NEEDED Status: Active Protocol: Document 09/07/20 10:06 MA (Rec: 09/07/20 10:22 MA [id number]) Physical Therapy Current Condition Current Condition Evaluation Date 09/06/20 Treatment Diagnosis s/p L4-5 fusion; difficulty in walking Precautions Lumbar Precautions Log Roll,No Twisting,Limit Bending,Lifting Restriction of 10 lbs,Gait Belt above Incisional Area M3 PT-IP Subjective Start: 09/06/20 13:20 Freq: NEEDED Status: Active Protocol: Document 09/07/20 10:06 MA (Rec: 09/07/20 10:22 MA [id number]) Subjective Physical Therapy Visit Type Type Treatment Note Visit Start Time 09:45 Visit Stop Time 10:04 Total Visit Minutes 19 Notes CONTINUOUS MINING MACHINE OPERATOR present for transfer assistance Number of PAGE TECHNICIAN Visits 1 Physical Therapy Visit Comments Patient Comments Pt willing to work with PT and sit in room chair Therapy Pain Assessment Pain When Pain Assessed At Rest Pain Present Pain Present Allowed to Sleep Location back Intensity 3 Scale Used Numeric (0 - 10) M4 PT-IP Mobility and Gait Start: 09/06/20 13:20 Freq: NEEDED Status: Active Protocol: Document 09/07/20 10:06 MA (Rec: 09/07/20 10:22 MA [id number]) PT-Bed Mobility Assessment Rolling Level of Assist Maximal Assistance,1 Person Assistance Supine to Sit Supine to Sit Maximum Assistance,1 Person Assistance,Head of Bed Elevated,Bedrails Scooting Scooting to Edge of Bed Maximum Assistance PT-Transfer Assessment Sit to and From Stand Sit to and from Stand Moderate Assistance,2 Person Assistance,Use of Upper Extremities Equipment Transfer Assistive Device Gait Belt,Front Wheeled Walker Orthotic/Prosthetic Devices or Brace: No Transfers Transfer Destination Chair Transfer Technique Stand Step Pivot Transfer Ability Level of Assist Moderate Assistance,1 Person Assistance,Use of Upper Extremities Comments Mobility Comments Pt able to repeat spinal precautions without cues. She was Max A x1 for bed mobility this AM with cues to reach for rails to assist in log roll. HOB elevated for supine>sit. Once seated EOB, CONTINUOUS MINING MACHINE OPERATOR present to assist with transfer to chair. Pt is mod Ax2 for sit> stand and is Mod Ax1 during stand-step pivot to room chair . Gait Assessment Comments Gait Comments No gait during AM session due to pt's IV coming out and nurse needing to stop the bleeding. PT-Balance Assessment Sitting Balance and Reactions Static Sitting Balance Ability Fair Dynamic Sitting Balance Ability Poor Standing Balance and Reactions Static Standing Balance Ability Poor Dynamic Standing Balance Ability Poor Device Used FWW M5 PT-IP Objective Assessments Start: 09/06/20 13:20 Freq: NEEDED Status: Active Protocol: Document 09/06/20 10:10 AB (Rec: 09/06/20 13:43 AB [id number]) Orientation Orientation/Cognition Level of Alertness Alert Orientation Name,Situation Safety Awareness Decreased Safety Awareness Memory Description Short Term Impaired Gross Range of Motion Lower Extremity ROM Assessment Right Impaired Impairments RLE tightness noted with decreas hip/knee flexion decrease R ankle ROM Strength Lower Extremity Strength Assessment Bilaterally Impaired Comments Strength Comments LLE: 3+/5 RLE: 3-/5 Sensation Assessment Sensation Gross Sensation Right LE Impaired,Left LE Impaired Sensation Description Numbness Other Assessments Other Other Assessments slight rigidity noted on RLE with tightness /resistance during flexion ROM M6 PT-IP Treatment Start: 09/06/20 13:20 Freq: NEEDED Status: Active Protocol: Document 09/07/20 10:06 MA (Rec: 09/07/20 10:22 MA [id number]) Physical Therapy Treatment Education Education Provided Precautions,Weight Bearing Status,Post-Op Packet,Safety M7 PT-IP Assessment and Plan Start: 09/06/20 13:20 Freq: NEEDED Status: Active Protocol: Document 09/07/20 10:06 MA (Rec: 09/07/20 10:22 MA [id number]) PT Summary Assessment and Plan Potential Rehabilitation Potential Good Status of Condition at Evaluation Evolving Summary Impairments Pain,ROM,Strength,Balance, Coordination,Sensation,Tone, Cognition,Bed Mobility, Transfers,Gait,Activity Tolerance Assessment Summary Seda could repeat her spinal precautions without cues today . She was Max Ax1 for bed mobility. She continues to need Mod Ax2 for sit<>stand but upon standing is Mod Ax1 to transfer stand-step pivot to chair. During bed mobility, pt's IV port came out of hand causing bleeding. CONTINUOUS MINING MACHINE OPERATOR present in room to assist with transfer and port bleed. Once transferred to chair, pt left with CONTINUOUS MINING MACHINE OPERATOR and nurse for depends change and to apply dressing to hand. Goals Bed Mobility Goal Minimal Assistance Transfer Goal Minimal Assistance,Front Wheeled Walker Gait Goal Minimal Assistance,Front Wheel Walker Gait Distance 50 Other Goals improve bed mobility and transfers using FWW SBA improve ambulation using FWW SBA 100 ft Days to Meet Goals 10 Frequency of Treatment Frequency Of Treatment Twice a Day Treatment Plan Physical Therapy Treatment Plan Bed Mobility Training,Transfer Training,Gait Training, Therapeutic Exercise,Balance Retraining,Post Op Education, Discharge Planning,Hot or Cold Pack,Neuromuscular Re-ed, Coordination Retraining,Manual Therapy Other Recommendations and Next Treatment increase gait as able, bed Focus mobility Precautions Lumbar Precautions Log Roll,No Twisting,Limit Bending,Lifting Restriction of 10 lbs,Gait Belt above Incisional Area Recommendations To Nursing Amount of Assist Needed 2 Person Assist Discharge Recommendations PT Discharge Recommendations SNF Rehab Transportation Needs at Discharge Wheelchair/Cabulance
[2020-09-07] MEDS: ACETAMINOPHEN 325 MG TABLET 650 MG PO ×2 (10:59→17:11)
--- NOTE | 2020-09-07 12:12 | CM.DPC ---
DCP Cont: Called [facility] to get some baseline history on patient. Spoke to one of the [facility]. Stated that she is a full hoier at the facility, when she first admitted to their facility, she was more mobile. Patient does have an electric scooter for mobility. Asked her that if a skilled facility is unable to accept her, if they can take her back. Stated that this would need to go through their commercial loan administrator/DNS, Liliana. She stated that she would have Liliana call back, gave her the name of this catalytic case operator and phone number. Also, the fws faculty assistant DNS is [email or web address]. P: DCP to continue to follow. Referrals have been placed to [facility], [facility], and [facility]. Plan B is for her to return to her facility. Emili Albright RN/Welt Stitcher
--- NOTE | 2020-09-07 12:15 | P.PN_ITS ---
Exam Vital Signs (past 8 hours): - 09/07/20 04:37 09/07/20 10:00 Temperature 97.6 F 97.8 F Pulse Rate 84 86 Respiratory Rate 18 16 Blood Pressure 120/79 122/69 Pulse Oximetry 92 92 Oxygen Delivery Method Room Air Oxygen Flow Rate 0 Objective Labs Result Diagrams: 09/06/20 06:00 [facility] Medical History Gait instability HLD (hyperlipidemia) HTN (hypertension) Lumbar radiculopathy Right foot drop Surgical History H/O heart bypass surgery H/O lumbosacral spine surgery Family History Father Heart disease, congenital Mother Congestive heart failure Social History household members: other Smoking Status: Never smoker alcohol intake: never Assessment & Plan Assessment & Plan narrative: POD#2 s/p L4-5 TLIF. Patient is admitted after surgery. Patient has been stable and progressing with physical therapy. Patient is neurovascularly intact on exam. Patient has no signs or symptoms of DVT. Patient's dressing is clean dry and intact. Patient will need additional PT for mobility training. Will re-assess tomorrow. Possible rehab placement planning.
[2020-09-07] MEDS: OXYCODONE IR 5 MG TABLET PO ×2 (13:00→16:07)
[2020-09-07] MEDS: ATORVASTATIN 20 MG TABLET 10 MG PO (14:55)
[2020-09-07 15:45] VITALS: BP 126/71; PULSE 101; RESP 18; TEMP 37.1; O2SAT 93
--- NOTE | 2020-09-07 15:48 | PT.IPTN ---
Current Diagnoses Spondylolisthesis, lumbar region (09/05/20) Spinal stenosis, lumbar region with neurogenic claudication (09/05/20) Postlaminectomy syndrome, not elsewhere classified (09/05/20) Surgery Performed Operation Date: 09/05/20 14:45 Actual Procedures p L4-5 TLIF and Removal of Spinal Cord Stimulator - Jeanette Batres MD Physical Therapy Treatment Note M2 PT-IP Current Condition Start: 09/06/20 13:20 Freq: NEEDED Status: Active Protocol: Document 09/07/20 15:50 MA (Rec: 09/07/20 16:04 MA [id number]) Physical Therapy Current Condition Current Condition Evaluation Date 09/06/20 Treatment Diagnosis s/p L4-5 fusion; difficulty in walking Precautions Lumbar Precautions Log Roll,No Twisting,Limit Bending,Lifting Restriction of 10 lbs,Gait Belt above Incisional Area M3 PT-IP Subjective Start: 09/06/20 13:20 Freq: NEEDED Status: Active Protocol: Document 09/07/20 15:50 MA (Rec: 09/07/20 16:04 MA [id number]) Subjective Physical Therapy Visit Type Type Treatment Note Visit Start Time 15:21 Visit Stop Time 15:48 Total Visit Minutes 27 Number of RN COMPLEX CARE Visits 3 Physical Therapy Visit Comments Patient Comments Pt willing to attempt walking with PT this PM session Therapy Pain Assessment Pain When Pain Assessed At Rest Pain Present Pain Present Pain Reported Location back Intensity 4 Scale Used Numeric (0 - 10) Pain Behaviors Moaning,Wincing Pain Management Techniques Re-positioning,Timing of Activity with Medications M4 PT-IP Mobility and Gait Start: 09/06/20 13:20 Freq: NEEDED Status: Active Protocol: Document 09/07/20 15:50 MA (Rec: 09/07/20 16:04 MA [id number]) PT-Bed Mobility Assessment Rolling Level of Assist Maximal Assistance,1 Person Assistance Supine to Sit Supine to Sit Maximum Assistance,1 Person Assistance,Head of Bed Elevated,Bedrails Scooting Scooting to Edge of Bed Maximum Assistance PT-Transfer Assessment Sit to and From Stand Sit to and from Stand Maximum Assistance,1 Person Assistance,2 Person Assistance ,Use of Upper Extremities Equipment Transfer Assistive Device Gait Belt,Front Wheeled Walker Orthotic/Prosthetic Devices or Brace: No Transfers Transfer Destination Bed,Chair Transfer Technique Stand Step Pivot Transfer Ability Level of Assist Maximum Assistance,1 Person Assistance,2 Person Assistance ,Use of Upper Extremities Comments Mobility Comments Pt able to ahere to spinal precautions. She is Max Ax1 for bed mobility with HOB elevated. She prefers to log roll L due to RLE weakness. Seda was then Max Ax1 for sit <>stand transfers first transferring from bed, walking 8 feet to window bench seat Mod Ax1 for gait. Took break at bench seat and was MAx Ax1 for sit>stand transfer from bench seat. Walking back to bed, pt's RLE gave out and pt required max A to lower to room chair. BLOW UP OPERATOR called into room to help transfer pt from chair to bed. Pt was Max Ax2 for transfer and all bed mobility once returned to bed. Gait Assessment Gait Gait Assistance Required: Moderate Assistance,Maximum Assistance,1 Person Assist,2 Person Assist Distance (Feet) 8 Able to Maintain Weight Bearing Status Yes During Gait Assistive Devices Assistive Device Gait Belt,Front Wheeled Walker Orthotic/Prosthetic Devices or Brace: No Gait Deviations General Gait Pattern Antalgic,Decreased Stride Length,Decreased Feet Clearance,Flexed Trunk,Step-to Gait Factors Limiting Gait Function Factors Limiting Gait Function Decreased Activity Tolerance, Decreased Sensation,Decreased Strength,Limited Range of Motion,Pain,Poor Balance,Poor Safety Awareness Comments Gait Comments See mobility comments PT-Balance Assessment Sitting Balance and Reactions Static Sitting Balance Ability Fair Dynamic Sitting Balance Ability Poor Standing Balance and Reactions Static Standing Balance Ability Poor Dynamic Standing Balance Ability Poor Device Used FWW M5 PT-IP Objective Assessments Start: 09/06/20 13:20 Freq: NEEDED Status: Active Protocol: Document 09/06/20 10:10 AB (Rec: 09/06/20 13:43 AB [id number]) Orientation Orientation/Cognition Level of Alertness Alert Orientation Name,Situation Safety Awareness Decreased Safety Awareness Memory Description Short Term Impaired Gross Range of Motion Lower Extremity ROM Assessment Right Impaired Impairments RLE tightness noted with decreas hip/knee flexion decrease R ankle ROM Strength Lower Extremity Strength Assessment Bilaterally Impaired Comments Strength Comments LLE: 3+/5 RLE: 3-/5 Sensation Assessment Sensation Gross Sensation Right LE Impaired,Left LE Impaired Sensation Description Numbness Other Assessments Other Other Assessments slight rigidity noted on RLE with tightness /resistance during flexion ROM M6 PT-IP Treatment Start: 09/06/20 13:20 Freq: NEEDED Status: Active Protocol: Document 09/07/20 15:50 MA (Rec: 09/07/20 16:04 MA [id number]) Physical Therapy Treatment Education Education Provided Precautions,Weight Bearing Status,Post-Op Packet,Safety M7 PT-IP Assessment and Plan Start: 09/06/20 13:20 Freq: NEEDED Status: Active Protocol: Document 09/07/20 15:50 MA (Rec: 09/07/20 16:04 MA [id number]) PT Summary Assessment and Plan Potential Rehabilitation Potential Good Status of Condition at Evaluation Evolving Summary Impairments Pain,ROM,Strength,Balance, Coordination,Sensation,Tone, Cognition,Bed Mobility, Transfers,Gait,Activity Tolerance Assessment Summary Seda was able to ahere to spinal precautions during PM session. She was Max Ax1 for all bed mobility when getting out of bed and Max A x2 for bed mobility when returning to bed due to increased pain and RLE weakness. Pt states her RLE has always had nerve problems due to her back. Pt was able to ambulate Mod A x1 to bench seat and fpc back to bed where her RLE began to give out. Pt lowered stand> sit to room chair Max Ax1 where nurse was called to assist helping pt back to bed. Pt able to transfer chair to bed, stand-step pivot with Max Ax2 and was Max Ax2 for bed mobility to reposition pt for comfort. Pt left supine in bed with all needs within reach. Goals Bed Mobility Goal Minimal Assistance Transfer Goal Minimal Assistance,Front Wheeled Walker Gait Goal Minimal Assistance,Front Wheel Walker Gait Distance 50 Other Goals improve bed mobility and transfers using FWW SBA improve ambulation using FWW SBA 100 ft Days to Meet Goals 10 Frequency of Treatment Frequency Of Treatment Twice a Day Treatment Plan Physical Therapy Treatment Plan Bed Mobility Training,Transfer Training,Gait Training, Therapeutic Exercise,Balance Retraining,Post Op Education, Discharge Planning,Hot or Cold Pack,Neuromuscular Re-ed, Coordination Retraining,Manual Therapy Other Recommendations and Next Treatment increase gait as able, bed Focus mobility Precautions Lumbar Precautions Log Roll,No Twisting,Limit Bending,Lifting Restriction of 10 lbs,Gait Belt above Incisional Area Recommendations To Nursing Amount of Assist Needed 2 Person Assist Discharge Recommendations PT Discharge Recommendations SNF Rehab Transportation Needs at Discharge Wheelchair/Cabulance
[2020-09-07 20:15] VITALS: BP 130/77; PULSE 86; RESP 18; TEMP 36.2; O2SAT 97
[2020-09-07] MEDS: MELATONIN 3 MG TABLET 6 MG PO (21:37)
[2020-09-07] MEDS: SENNOSIDES 8.6 MG TABLET 17.2 MG PO (21:37)
[2020-09-07] MEDS: ALPRAZolam 0.5 MG TABLET PO (21:37)
--- NOTE | 2020-09-07 23:42 | PC.NURSE ---
After dinner pt reported that her throat felt strange and painful, and that it was difficult to swallow. I watched the patient swallow without any coughing or other difficulties but she continued to report that it felt difficult. She wondered if she was having a reaction to oxycodone. Vistaril offered, administered; pt reported relief.
[2020-09-08] VITALS (9 sets, daily range): BP systolic 116–143; BP diastolic 48–79; PULSE 85–94; RESP 16–18; TEMP 36.2–37.2; O2SAT 92–95
[2020-09-08] MEDS: ACETAMINOPHEN 325 MG TABLET 650 MG PO ×4 (02:09→22:02)
--- NOTE | 2020-09-08 03:20 | PC.NURSE ---
Patient is alert and oriented. Breath sounds CTA with RA sat of 92%. HRR w/elevated BP of 143/48. Denied nausea. BT present and is passing flatus but has not had a BM since 09/04. Has been mostly incontinent of urine; denied dysuria, frequency or urgency. Is able to turn with assistance. Gait not assessed at this time as not out of bed. Has chronic bilateral leg/foot neuropathy. Complains of 3/10 bilateral leg pain so medicated with Tylenol and is currently asleep. Dressing to back is CDI. Had bilateral foot SCD's on at shift change but requested they be removed when staff in to change her at 0215.
[2020-09-08] MEDS: CARBIDOPA-LEVODOPA 25/100 TABLET 1 EACH PO ×3 (06:45→16:00)
[2020-09-08] MEDS: OXYCODONE IR 5 MG TABLET PO ×3 (06:47→14:25)
[2020-09-08] MEDS: hydrOXYzine pamoate 25 MG CAPSULE PO ×3 (06:49→14:24)
[2020-09-08] MEDS: GABAPENTIN 100 MG CAPSULE PO ×3 (09:01→22:02)
[2020-09-08] MEDS: ATORVASTATIN 20 MG TABLET 10 MG PO (09:01)
[2020-09-08] MEDS: OXYBUTYNIN 5 MG ER TAB 10 MG PO (09:01)
[2020-09-08] MEDS: DOCUSATE 100 MG CAPSULE PO ×2 (09:02→22:02)
[2020-09-08] MEDS: lisinopriL 10 MG TABLET PO (09:02)
--- NOTE | 2020-09-08 10:08 | P.PN_ITS ---
Exam Vital Signs (past 8 hours): - 09/08/20 02:15 09/08/20 05:24 09/08/20 08:50 Temperature 98.1 F 97.1 F L Pulse Rate 91 H 85 85 Respiratory Rate 18 18 16 Blood Pressure 143/48 H 129/72 Pulse Oximetry 92 93 93 09/08/20 08:55 09/08/20 09:02 Temperature 97.3 F L Pulse Rate 85 85 Respiratory Rate 16 Blood Pressure 139/77 139/77 Pulse Oximetry 93 Oxygen Delivery Method Room Air Oxygen Flow Rate 0 Objective Labs Result Diagrams: 09/06/20 06:00 [facility] Medical History Gait instability HLD (hyperlipidemia) HTN (hypertension) Lumbar radiculopathy Right foot drop Surgical History H/O heart bypass surgery H/O lumbosacral spine surgery Family History Father Heart disease, congenital Mother Congestive heart failure Social History household members: other Smoking Status: Never smoker alcohol intake: never Assessment & Plan Assessment & Plan narrative: POD#3 s/p lumbar fusion Patient is comfortable pain well controlled and taking only oral medications. On exam patient is neuro intact. Dressing clean dry intact. No s/s of DVT. Plan for discharge to inpatient rehab once bed becomes available.
[2020-09-08] MEDS: MAGNESIUM HYDROXIDE 30 ML UDC PO (10:54)
--- NOTE | 2020-09-08 11:08 | PT.IPTN ---
Current Diagnoses Spondylolisthesis, lumbar region (09/05/20) Spinal stenosis, lumbar region with neurogenic claudication (09/05/20) Postlaminectomy syndrome, not elsewhere classified (09/05/20) Surgery Performed Operation Date: 09/05/20 14:45 Actual Procedures p L4-5 TLIF and Removal of Spinal Cord Stimulator - Jeanette Batres MD Physical Therapy Treatment Note M2 PT-IP Current Condition Start: 09/06/20 13:20 Freq: NEEDED Status: Active Protocol: Document 09/08/20 11:13 MA (Rec: 09/08/20 11:29 MA [id number]) Physical Therapy Current Condition Current Condition Evaluation Date 09/06/20 Treatment Diagnosis s/p L4-5 fusion; difficulty in walking Precautions Lumbar Precautions Log Roll,No Twisting,Limit Bending,Lifting Restriction of 10 lbs,Gait Belt above Incisional Area M3 PT-IP Subjective Start: 09/06/20 13:20 Freq: NEEDED Status: Active Protocol: Document 09/08/20 11:13 MA (Rec: 09/08/20 11:29 MA [id number]) Subjective Physical Therapy Visit Type Type Treatment Note Visit Start Time 10:47 Visit Stop Time 11:08 Total Visit Minutes 21 Notes Nurse present for transfer assist Number of CLAY MINER Visits 4 Physical Therapy Visit Comments Patient Comments Pt willing to sit up in chair at end of session Therapy Pain Assessment Pain When Pain Assessed At Rest Pain Present Pain Present Pain Reported Location back Intensity 4 Scale Used Numeric (0 - 10) Pain Behaviors Facial Grimacing Pain Management Techniques Re-positioning,Timing of Activity with Medications M4 PT-IP Mobility and Gait Start: 09/06/20 13:20 Freq: NEEDED Status: Active Protocol: Document 09/08/20 11:13 MA (Rec: 09/08/20 11:29 MA [id number]) PT-Bed Mobility Assessment Rolling Level of Assist Maximal Assistance,1 Person Assistance Supine to Sit Supine to Sit Maximum Assistance,1 Person Assistance,Head of Bed Elevated,Bedrails Scooting Scooting to Edge of Bed Maximum Assistance PT-Transfer Assessment Sit to and From Stand Sit to and from Stand Maximum Assistance,1 Person Assistance,Use of Upper Extremities Equipment Transfer Assistive Device Gait Belt,Front Wheeled Walker Orthotic/Prosthetic Devices or Brace: No Transfers Transfer Destination Chair Transfer Technique Stand Step Pivot Transfer Ability Level of Assist Maximum Assistance,2 Person Assistance,Use of Upper Extremities Comments Mobility Comments Pt was Max A x1 for bed mobility and Max Ax2 for sit<> stand. Once standing, pt was able to walk 6 ft to window with chair follow before needing to sit down due to LBP and RLE weakness. She is Mod Ax1 for gait but requires chair follow for safety due to RLE weakness. Gait Assessment Gait Gait Assistance Required: Moderate Assistance,1 Person Assist Distance (Feet) 6 Able to Maintain Weight Bearing Status Yes During Gait Assistive Devices Assistive Device Gait Belt,Front Wheeled Walker Orthotic/Prosthetic Devices or Brace: No Gait Deviations General Gait Pattern Antalgic,Decreased Stride Length,Decreased Feet Clearance,Flexed Trunk,Step-to Gait Factors Limiting Gait Function Factors Limiting Gait Function Decreased Activity Tolerance, Decreased Sensation,Decreased Strength,Limited Range of Motion,Pain,Poor Balance,Poor Safety Awareness Comments Gait Comments See mobility comments PT-Balance Assessment Sitting Balance and Reactions Static Sitting Balance Ability Fair Dynamic Sitting Balance Ability Poor Standing Balance and Reactions Static Standing Balance Ability Poor Dynamic Standing Balance Ability Poor Device Used FWW M5 PT-IP Objective Assessments Start: 09/06/20 13:20 Freq: NEEDED Status: Active Protocol: Document 09/06/20 10:10 AB (Rec: 09/06/20 13:43 AB [id number]) Orientation Orientation/Cognition Level of Alertness Alert Orientation Name,Situation Safety Awareness Decreased Safety Awareness Memory Description Short Term Impaired Gross Range of Motion Lower Extremity ROM Assessment Right Impaired Impairments RLE tightness noted with decreas hip/knee flexion decrease R ankle ROM Strength Lower Extremity Strength Assessment Bilaterally Impaired Comments Strength Comments LLE: 3+/5 RLE: 3-/5 Sensation Assessment Sensation Gross Sensation Right LE Impaired,Left LE Impaired Sensation Description Numbness Other Assessments Other Other Assessments slight rigidity noted on RLE with tightness /resistance during flexion ROM M6 PT-IP Treatment Start: 09/06/20 13:20 Freq: NEEDED Status: Active Protocol: Document 09/08/20 11:13 MA (Rec: 09/08/20 11:29 MA [id number]) Physical Therapy Treatment Education Education Provided Precautions,Safety Other Treatments Other Treatment Performed Pt is able to repeat spinal precautions without cues M7 PT-IP Assessment and Plan Start: 09/06/20 13:20 Freq: NEEDED Status: Active Protocol: Document 09/08/20 11:13 MA (Rec: 09/08/20 11:29 MA [id number]) PT Summary Assessment and Plan Potential Rehabilitation Potential Good Status of Condition at Evaluation Evolving Summary Impairments Pain,ROM,Strength,Balance, Coordination,Sensation,Tone, Cognition,Bed Mobility, Transfers,Gait,Activity Tolerance Assessment Summary Seda is progressing slowly and is limited during gait due to LBP and RLE weakness. She is able to assist more getting out of bed today and is only Max A x1 vs 2 person yesterday AM. She is able to walk with mod A x1, with FWW and gait belt but her RLE will ocassionally buckle; recommend chair follow during gait. Goals Bed Mobility Goal Minimal Assistance Transfer Goal Minimal Assistance,Front Wheeled Walker Gait Goal Minimal Assistance,Front Wheel Walker Gait Distance 50 Other Goals improve bed mobility and transfers using FWW SBA improve ambulation using FWW SBA 100 ft Days to Meet Goals 10 Frequency of Treatment Frequency Of Treatment Twice a Day Treatment Plan Physical Therapy Treatment Plan Bed Mobility Training,Transfer Training,Gait Training, Therapeutic Exercise,Balance Retraining,Post Op Education, Discharge Planning,Hot or Cold Pack,Neuromuscular Re-ed, Coordination Retraining,Manual Therapy Other Recommendations and Next Treatment increase gait as able, bed Focus mobility Precautions Lumbar Precautions Log Roll,No Twisting,Limit Bending,Lifting Restriction of 10 lbs,Gait Belt above Incisional Area Recommendations To Nursing Amount of Assist Needed 2 Person Assist Discharge Recommendations PT Discharge Recommendations SNF Rehab Transportation Needs at Discharge Wheelchair/Cabulance
--- NOTE | 2020-09-08 14:27 | CM.DPC ---
DCP Discharge SNF Per Ortho MD, pt medically stable to d/c to SNF today if facility can be found. SW followed up with the below SNF's: [facility]- willing to review but uncertain their female availability [facility]- could accept but no openings now until Wed or [facility]- they have one opening tomorrow and confirm they will accept around 1300. SW faxed d/c note, PASRR, signed med rec, scripts, MD orders to [facility] to review for d/c tomorrow. SW requested RN get updated COVID today in anticipation of d/c tomorrow and RN is agreeable. SW met bedside with pt and explained role and provided her with update and she is appreciative of acceptance at [facility] tomorrow. Pt confirms that her COVID vaccinations happened at her [facility] and requested SW to contact them to request copy for the SNF and update them that she will go to SNF at d.c. SW called [facility] and they are agreeable to fax copy of her COVID vaccination record and SW updated them that pt will d/c to SNF. Plan: SW to follow closely for updated COVID, copy of COVID vaccination record from [facility], and confirming [facility] has everything they need for plan of transport at 1300 tomorrow 09/09/20. VANESA Rangel
--- NOTE | 2020-09-08 14:28 | OT.IPNOTE ---
Attempted to see pt for OT services. Pt states that she just returned to bed after working with P.T. Will hold at this time. Schedule did not permit this content writer to follow up later in the day.
--- NOTE | 2020-09-08 14:56 | PC.NURSE ---
Day shift note: Pain well controlled with PO medication as ordered. Administered MOM PRN this shift, discussed NE interventions for constipation (last BM 09/04) states will consider if no success, declined for now. No IV accces, order obtain to keep IV out by Dr. TORRES. Calls appropriately for staff assist.
[2020-09-08] MEDS: BISACODYL 10 MG SUPP PR (16:32)
[2020-09-08] MEDS: ALPRAZolam 0.5 MG TABLET PO (22:02)
[2020-09-08] MEDS: SENNOSIDES 8.6 MG TABLET 17.2 MG PO (22:02)
[2020-09-08] MEDS: MELATONIN 3 MG TABLET 6 MG PO (23:44)
--- NOTE | 2020-09-09 02:14 | PC.NURSE ---
Addendum entered by Laura Darden R.N. 09/09/20 03:41: When changing patient's brief discovered 3 small round white pills with markings of K 18 lying in bedding by patient. Using pill identifier in clinical pharmacology site and verified by Nicole WEISS pill appears to be Oxycodone. Discovered multiple loose pills in baggies in patient purse which had previously been beside patient in bed. Patient insisting purse be given back to her because she has lots of henderson. Purse emptied in front of patient and pills removed and rest of contents + purse given back to patient. Then patient upset and stated she wants the pills in the purse so informed they would be put back in purse but then purse needs to be on shelf in room so the pills are not accessible to the patient. Patient agreed to this. RN coordinator, Maru, informed. Original Note: Patient is alert and oriented. Breath sounds CTA with RA sat of 92%. HRR. Denied nausea. BT present and had BM last evening after suppository. Is incontinent of urine but won't always allow staff to change pad; places toilet paper in brief so don't have to change as often. Dressing to back is CDI. Needs help to turn but will only accept as she requests. Complained of 4/10 bilateral leg/foot pain which she stated had improved after receiving Tylenol on previous shift. Chronic bilateral LE neuropathy unchanged. Wearing bilateral foot SCD's at start of shift but requested they be removed for the night; reminded to ankle wave when awake. Gait not assessed at this time. Fall risk score is high and bed alarm is activated.
[2020-09-09 03:08] VITALS: BP 146/76; PULSE 94; RESP 18; TEMP 36.6; O2SAT 92
[2020-09-09] MEDS: ACETAMINOPHEN 325 MG TABLET 650 MG PO ×2 (04:16→09:51)
[2020-09-09] MEDS: hydrOXYzine pamoate 25 MG CAPSULE PO ×2 (05:55→11:46)
[2020-09-09] MEDS: CARBIDOPA-LEVODOPA 25/100 TABLET 1 EACH PO ×2 (06:31→11:46)
[2020-09-09] MEDS: OXYCODONE IR 5 MG TABLET PO ×3 (06:31→12:23)
[2020-09-09 07:30] VITALS: BP 136/74; PULSE 83; RESP 18; TEMP 36.4; O2SAT 92
--- NOTE | 2020-09-09 07:47 | PM.PNPO.1 ---
Subjective Subjective Date Patient Seen: 09/09/20 Time Patient Seen: 07:47 Interval history: States she is doing well overall and is in moderate discomfort at rest. At this time she denies fever, chills, nausea, chest pain, shortness of breath or urinary retention. Patient reports good sensation throughout the bilateral lower extremities, but she does note mild tingling sensation in the feet bilaterally. Exam Vital Signs (past 8 hours): - 09/09/20 03:08 Temperature 97.8 F Pulse Rate 94 H Respiratory Rate 18 Blood Pressure 146/76 H Pulse Oximetry 92 Oxygen Delivery Method Room Air Oxygen Flow Rate 0 Narrative Exam Narrative: 80-year-old female postop day 4. Patient is resting comfortably in bed, is in no acute distress, is alert and oriented x3. Skin is warm and dry, skin surrounding incision site is free of erythema, warmth, induration, or discharge. Dressing over the incision site is clean, dry, and intact. Good sensation appreciated throughout the bilateral lower extremities light touch. Ankle dorsiflexion, plantar flexion, eversion, inversion performed bilaterally without difficulty or discomfort. Calves are soft and nontender, negative Homans sign. DP pulses palpated bilaterally. No other signs of DVT appreciated. Const General: cooperative, healthy appearing and comfortable Resp Effort & Inspection: normal respiratory effort and able to speak in complete sentences Skin General: no rashes or lesions noted Objective Labs Result Diagrams: 09/06/20 06:00 [facility] Medical History Gait instability HLD (hyperlipidemia) HTN (hypertension) Lumbar radiculopathy Right foot drop Surgical History H/O heart bypass surgery H/O lumbosacral spine surgery Family History Father Heart disease, congenital Mother Congestive heart failure Social History household members: other Smoking Status: Never smoker alcohol intake: never Assessment & Plan Post-op Postoperative Procedures: Procedures Operation Date: 09/05/20 14:45 Actual Procedure Side Surgeon p L4-5 TLIF and Removal of Spinal Cord Stimulator Jeanette Batres MD Postoperative day: 4 Postoperative status: doing well and marginal pain control Postoperative plan: ambulate Postoperative plan narrative: Patient is to continue working on ambulation with the assistance of a front wheeled walker with physical therapy. Patient is to avoid bending, twisting, or lifting in excess of 10 lb. Current pain management regimen is to be continued. Plan for transfer likely today [facility].
--- NOTE | 2020-09-09 08:41 | CM.DPC ---
Addendum entered by Martina Stoll LPN 09/09/20 11:19: All is now in place for the d/c as per below. Nurse/Nurse report # to ABHISHEK Douglas. Needed script faxed to [facility] Original Note: DCP: continued: case received, EMR reviewed; pt with a d/c to [facility] order in place. Followed up: Spoke with pt who is aware she is going today and agreeable to same. Spoke with Kanu/[facility] re d/c specifics. He has the d/c specifics sent over yesterday by MARIALUISA Alicea but does confirm that a script is needed for pt's home medication of alprazolam. Have left a vm for Ortho PA Andrei re script need prior to d/c: planned for 1330 today (no open bed until then at [facility].) PASSLOAN is also amended re this medication. Rapid Covid test was planned for yesterday but not placed. ABHISHEK Douglas is updated and will follow up. [facility], pending above issues.
[2020-09-09] MEDS: OXYBUTYNIN 5 MG ER TAB 10 MG PO (09:02)
[2020-09-09] MEDS: GABAPENTIN 100 MG CAPSULE PO (09:03)
[2020-09-09] MEDS: ATORVASTATIN 20 MG TABLET 10 MG PO (09:03)
[2020-09-09] MEDS: DOCUSATE 100 MG CAPSULE PO (09:03)
[2020-09-09] MEDS: lisinopriL 10 MG TABLET PO (09:03)
--- NOTE | 2020-09-09 09:04 | PC.NURSE ---
Covid test per transfer protocal obtained at 09:00 and sent to lab.
[2020-09-09 09:14] VITALS: PULSE 84; RESP 16; O2SAT 93
[2020-09-09 09:32] LABS: COVID19 -Nasal RAPID Negative (Negative)
--- NOTE | 2020-09-09 10:23 | PT.IPTN ---
Current Diagnoses Spondylolisthesis, lumbar region (09/05/20) Spinal stenosis, lumbar region with neurogenic claudication (09/05/20) Postlaminectomy syndrome, not elsewhere classified (09/05/20) Surgery Performed Operation Date: 09/05/20 14:45 Actual Procedures p L4-5 TLIF and Removal of Spinal Cord Stimulator - Jeanette Batres MD Physical Therapy Treatment Note M2 PT-IP Current Condition Start: 09/06/20 13:20 Freq: NEEDED Status: Active Protocol: Document 09/08/20 11:13 MA (Rec: 09/08/20 11:29 MA [id number]) Physical Therapy Current Condition Current Condition Evaluation Date 09/06/20 Treatment Diagnosis s/p L4-5 fusion; difficulty in walking Precautions Lumbar Precautions Log Roll,No Twisting,Limit Bending,Lifting Restriction of 10 lbs,Gait Belt above Incisional Area M3 PT-IP Subjective Start: 09/06/20 13:20 Freq: NEEDED Status: Active Protocol: Document 09/09/20 09:29 AW (Rec: 09/09/20 10:23 AW [id number]) Subjective Physical Therapy Visit Type Type Treatment Note Visit Start Time 09:05 Visit Stop Time 09:29 Total Visit Minutes 24 Number of CORRECTIONAL TREATMENT SPECIALIST Visits 0 Physical Therapy Visit Comments Patient Comments Pt needing to use the BSC urgently. Therapy Pain Assessment Pain When Pain Assessed At Rest Pain Present Pain Present Pain Reported M4 PT-IP Mobility and Gait Start: 09/06/20 13:20 Freq: NEEDED Status: Active Protocol: Document 09/09/20 09:29 AW (Rec: 09/09/20 10:23 AW [id number]) PT-Bed Mobility Assessment Rolling Level of Assist Maximal Assistance,1 Person Assistance Supine to Sit Supine to Sit Moderate Assistance,1 Person Assistance,Bedrails Scooting Scooting to Edge of Bed Moderate Assistance PT-Transfer Assessment Sit to and From Stand Sit to and from Stand Moderate Assistance,Maximum Assistance,1 Person Assistance ,Use of Upper Extremities Equipment Transfer Assistive Device Gait Belt,Front Wheeled Walker Orthotic/Prosthetic Devices or Brace: No Transfers Transfer Destination Chair,Bedside Commode Transfer Technique Stand Step Pivot Transfer Ability Level of Assist Maximum Assistance,1 Person Assistance,Use of Upper Extremities Comments Mobility Comments With bed flat, pt impulsively attempted to sit up without log rolling. Max cues provided for log roll as pt rolled to her left side and then completed SL to sit max A x 1 with max cues for sequencing. Pt used bed cane with right hand to pull up to sitting. She stood from the bed mod A x 1 and ambulated 5 feet to [facility] , needing mod assist due to poorly controlled descent. Pt had a BM on the commode and then needed max A x 1 to stand and was dependent for pericare in standing which she tolerated poorly. Pt sat for a rest break before standing again max A x 2 and ambulating 5 feet to the chair mod A x 2 with FWW. She sat on the chair and then agreed to practice sit to stand. She stood from the bedside chair max A x 1 (increased assist needed as pt fatigued) and stood 60 seconds before returning to sitting on the chair. She was positioned on the chair with call light and tray table in reach. Gait Assessment Gait Gait Assistance Required: Moderate Assistance,1 Person Assist Distance (Feet) 5 Able to Maintain Weight Bearing Status Yes During Gait Assistive Devices Assistive Device Gait Belt,Front Wheeled Walker Orthotic/Prosthetic Devices or Brace: No Gait Deviations General Gait Pattern Antalgic,Decreased Stride Length,Decreased Feet Clearance,Flexed Trunk,Step-to Gait Factors Limiting Gait Function Factors Limiting Gait Function Decreased Activity Tolerance, Decreased Sensation,Decreased Strength,Limited Range of Motion,Pain,Poor Balance,Poor Safety Awareness Comments Gait Comments See mobility comments PT-Balance Assessment Sitting Balance and Reactions Static Sitting Balance Ability Fair Dynamic Sitting Balance Ability Poor Standing Balance and Reactions Static Standing Balance Ability Poor Dynamic Standing Balance Ability Poor Device Used FWW M5 PT-IP Objective Assessments Start: 09/06/20 13:20 Freq: NEEDED Status: Active Protocol: Document 09/06/20 10:10 AB (Rec: 09/06/20 13:43 AB [id number]) Orientation Orientation/Cognition Level of Alertness Alert Orientation Name,Situation Safety Awareness Decreased Safety Awareness Memory Description Short Term Impaired Gross Range of Motion Lower Extremity ROM Assessment Right Impaired Impairments RLE tightness noted with decreas hip/knee flexion decrease R ankle ROM Strength Lower Extremity Strength Assessment Bilaterally Impaired Comments Strength Comments LLE: 3+/5 RLE: 3-/5 Sensation Assessment Sensation Gross Sensation Right LE Impaired,Left LE Impaired Sensation Description Numbness Other Assessments Other Other Assessments slight rigidity noted on RLE with tightness /resistance during flexion ROM M6 PT-IP Treatment Start: 09/06/20 13:20 Freq: NEEDED Status: Active Protocol: Document 09/09/20 09:29 AW (Rec: 09/09/20 10:23 AW [id number]) Physical Therapy Treatment Education Education Provided Precautions,Safety M7 PT-IP Assessment and Plan Start: 09/06/20 13:20 Freq: NEEDED Status: Active Protocol: Document 09/09/20 09:29 AW (Rec: 09/09/20 10:23 AW [id number]) PT Summary Assessment and Plan Potential Rehabilitation Potential Good Status of Condition at Evaluation Stable Summary Impairments Pain,ROM,Strength,Balance, Coordination,Sensation,Tone, Cognition,Bed Mobility, Transfers,Gait,Activity Tolerance Progress Towards Goals Slow Progress due to Pain,Slow Progress due to Activity Tolerance Assessment Summary Seda continues to be limited by LBP and RLE weakness. Bed mobility improved this date but pt needing mod-max assist for sit to stand and has limited standing/ambulation tolerance. Pt required SNF rehab. Goals Bed Mobility Goal Minimal Assistance Transfer Goal Minimal Assistance,Front Wheeled Walker Gait Goal Minimal Assistance,Front Wheel Walker Gait Distance 50 Other Goals improve bed mobility and transfers using FWW SBA improve ambulation using FWW SBA 100 ft Days to Meet Goals 10 Frequency of Treatment Frequency Of Treatment Twice a Day Treatment Plan Physical Therapy Treatment Plan Bed Mobility Training,Transfer Training,Gait Training, Therapeutic Exercise,Balance Retraining,Post Op Education, Discharge Planning,Hot or Cold Pack,Neuromuscular Re-ed, Coordination Retraining,Manual Therapy Precautions Lumbar Precautions Log Roll,No Twisting,Limit Bending,Lifting Restriction of 10 lbs,Gait Belt above Incisional Area Recommendations To Nursing Amount of Assist Needed 2 Person Assist Discharge Recommendations PT Discharge Recommendations SNF Rehab Transportation Needs at Discharge Wheelchair/Cabulance
--- NOTE | 2020-09-09 10:59 | P.DS_ITS ---
History of Present Illness History of Present Illness Date Patient Seen: 09/09/20 Time Patient Seen: 10:59 Chief complaint: Translaminar Interbody Fusion *OPB* Narrative: Patient has been having chronic back pain and worsening lumbar radiculopathy. Patient had previous laminectomy with no significant improvement of her symptoms with worsening leg pain and back pain. Patient had a nonfunctional spinal cord stimulator since 2017 with pain secondary to soft tissue irritation due to the spinal cord stimulator. Patient failed multiple conservative management with worsening pain weakness and numbness in her lower extremity. Patient has been having difficulty performing activity of daily living. After discussing risks benefits of treatment options, patient elected proceed with surgery. Discharge Providers Provider Date of admission: 09/05/20 12:32 Discharge Date: 09/09/20 Primary care physician: Marci Soliz PA-C Consults: 09/05/20 19:36 Consult to Occupational Therapy Evaluate & Treat Comment: Physician Instructions: Evaluate and treat Consult to Physical Therapy Evaluate & Treat Comment: Physician Instructions: Evaluate and Treat Discharge provider: Andrei De Leon PA-C Summary Hospital Course Discharge Diagnosis: L4-5 spondylolisthesis L4-5 post laminectomy syndrome L4-5 spondylosis with radiculopathy L4-5 spinal stenosis Retained nonfunctional spinal cord stimulator causing pain Status post L4-5 Postero-lateral and posterior interbody fusion, L4-5 interbody cage placement, L4-5 decompressive laminectomy with bilateral facetecomies, L4-5 Posterior non-segmental instrumentation, Grethel of bone marrow from iliac crest, Utilization of microsurgical technique and operating microscope, Removal of spinal cord stimulator and electric leads Hospital Course: Patient was admitted to the hospital following the above-listed procedures for the above-listed diagnosis. Following the procedure the patient has been convalescing appropriately in her pain has been managed with current pain management regimen. Dressing over the incision site has remained intact following surgery and has been changed as needed as it has become damaged or soiled. Patient has successfully worked on ambulation with the assistance of a front wheeled walker with physical therapy. Throughout the course of her time hospital she has denied fever, chills, nausea, chest pain, shortness of breath, or urinary retention. She has avoided bending, twisting, or lifting in excess of 10 lb. Status at Discharge Cognitive/behavioral status at discharge: oriented Functional status at discharge: uses cane/walker Overall status at discharge: patient is progressing back to baseline Exam Vital Signs (past 8 hours): - 09/09/20 03:08 09/09/20 07:30 09/09/20 09:14 Temperature 97.8 F 97.5 F L Pulse Rate 94 H 83 84 Respiratory Rate 18 18 16 Blood Pressure 146/76 H 136/74 Pulse Oximetry 92 92 93 Oxygen Delivery Method Room Air Oxygen Flow Rate 0 Narrative Exam Narrative: 80-year-old female postop day 4. Patient is resting comfortably in bed, is in no acute distress, is alert and oriented x3. Skin is warm and dry, skin surrounding incision site is free of erythema, warmth, induration, or discharge. Dressing over the incision site is clean, dry, and intact. Good sensation appreciated throughout the bilateral lower extremities light touch. Ankle dorsiflexion, plantar flexion, eversion, inversion performed bilaterally without difficulty or discomfort. Calves are soft and nontender, negative Homans sign. DP pulses palpated bilaterally. No other signs of DVT appreciated. Const General: cooperative, healthy appearing and comfortable Resp Effort & Inspection: normal respiratory effort and able to speak in complete se ntences Skin General: no rashes or lesions noted Objective Labs Result Diagrams: 09/06/20 06:00 Labs: Laboratory Results - last 24 hr 09/09/20 09:00 SARS-CoV-2 (PCR) Negative [facility] Medical History Gait instability HLD (hyperlipidemia) HTN (hypertension) Lumbar radiculopathy Right foot drop Surgical History H/O heart bypass surgery H/O lumbosacral spine surgery Family History Father Heart disease, congenital Mother Congestive heart failure Social History household members: other Smoking Status: Never smoker alcohol intake: never Discharge Assessment & Plan Assessment and Plan Assessment: Patient is doing well and is stable. Plan of Treatment: Patient is scheduled for 1st postoperative visit in clinic 2 weeks following discharge from the hospital. Current pain management regimen is to be continued. Patient is to continue working on ambulation with the assistance of a front wheeled walker. Avoid bending, twisting, or lifting. Dressing over the incision site is to remain clean, dry, and intact. Dressing can be changed as needed if it becomes damaged or soiled. Patient is to contact clinic with any concerns or questions. Any signs of increased redness, swelling, warmth, pain, or discharge from around the incision site should be reported to the clinic. Discharge Plan Discharge Plan Patient Disposition: SNF Transfer to: [facility] Discharge orders & Medications Prescriptions: New oxycodone 5 mg Tablet 5 mg PO Q3HR PRN (Reason: Pain, Moderate (4-6)) Qty: 60 RF: 0 hydroxyzine pamoate 25 mg Capsule 25 mg PO Q4HR PRN (Reason: Nausea And Vomiting, spasm) Qty: 30 RF: 0 Continued aspirin 81 mg DAILY RF: 0 alprazolam 0.5 mg tablet 0.5 mg PO BEDTIME Qty: 30 RF: 0 lisinopril 10 mg tablet 10 mg PO DAILY RF: 0 atorvastatin [Lipitor] 10 mg tablet 10 mg PO DAILY RF: 0 hydrocodone-acetaminophen 5-300 mg tablet 1 tab PO BEDTIME PRN (Reason: Pain) RF: 0 gabapentin 100 mg capsule 100 mg PO TID RF: 0 albuterol sulfate 90 mcg/actuation HFA aerosol inhaler 1 - 2 puff inhalation DIRECTED RF: 0 carbidopa-levodopa 25-100 mg tablet 1 tab PO TID RF: 0 sulfamethoxazole-trimethoprim 800-160 mg tablet 800 tab PO DAILY RF: 0 oxybutynin chloride 10 mg tablet extended release 24hr 10 mg PO DAILY RF: 0 Follow up/Referrals: Marci Soliz PA-C [Primary Care Provider] - Diet/Activity/Treatments Diet: Diet as Tolerated and Regular Activity: Limit bending twisting and lifting Mobilize as tolerated, out of bed to chair three times daily Skin/Wound/Dressing Care Report to your healthcare provider any signs of infection, such as:: chills, fever, night sweats, unusual drainage and unusual redness Dressing: Keep dressing clean dry intact Change dressing in 5 days with gauze and tape and as needed [facility] Rehab type: Physical therapy and Occupational therapy Visit Report/Discharge Packet Instructions: How to Prevent Falls, DI for Prescription Opioid Use, Stool Softeners, DI for Transforaminal Lumbar Interbody Fusion Stand Alone Forms: Surgery Discharge Discharge Data Primary Care Provider: Marci Soliz
--- NOTE | 2020-09-09 12:06 | PC.NURSE ---
Day shift: Report given to Frankie at [facility]. All questions answered.
--- NOTE | 2020-09-09 13:30 | PC.NURSE ---
Day shift: Pt left for [facility] at approx 1330. Pt has all personal belongings. ABHISHEK Jensen at [facility] informed that Pt has pills in her belonging bags. Dressing remains intact with shadow drainage present and PA aware. Pain controlled well per MAY. Pt has denied any nausea today. scripts and instructions in [facility] packet. Packet given to transport person.
== END 2020-09-09 13:34 | DRG 454 ==
LOC: OR 12:33 → AC 12:34
PROVIDERS: Admitting Provider Orthopaedic Surgery Orthopaedic Surgery of the Spine; PCP Physician Assistant Medical; Referring Provider Orthopaedic Surgery Orthopaedic Surgery of the Spine; Visit Provider Orthopaedic Surgery Orthopaedic Surgery of the Spine
PROC: 0SG00AJ Fusion of Lumbar Vertebral Joint with Interbody Fusion Device, Posterior Approach, Anterior Column, Open Approach (ICD-10-PCS; principal; 2020-09-05 14:45)
DX: M48.062 Spinal stenosis, lumbar region with neurogenic claudication (principal); T85.193A Other mechanical complication of implanted electronic neurostimulator, generator, initial encounter; M43.16 Spondylolisthesis, lumbar region; M96.1 Postlaminectomy syndrome, not elsewhere classified; M47.26 Other spondylosis with radiculopathy, lumbar region; G20 Parkinson's disease; I10 Essential (primary) hypertension; E78.5 Hyperlipidemia, unspecified; I25.10 Atherosclerotic heart disease of native coronary artery without angina pectoris; Z95.1 Presence of aortocoronary bypass graft; F32.9 Major depressive disorder, single episode, unspecified; Z87.891 Personal history of nicotine dependence
CPT/HCPCS: 36415; 72100; 76000; 82962; 85014; 85018; 87635; 94640; 97116; 97162; 97167; 97530; C1776; C9803; C9290; J0330; J0690; J1100; J1170; J2405; J2704; J3010; J7613

== ENCOUNTER 2021-01-12 10:21 | Observation (INO) | payer MEDICARE, OTHER, MEDICAID, SELFPAY ==
[2020-09-05 19:37] VITALS: BMI 33.8
[2021-01-12 10:21] VITALS: BP 153/81; PULSE 80; RESP 14; TEMP 36.2; O2SAT 93
--- NOTE | 2021-01-12 10:29 | PC.NURSE ---
Pt working w/ [facility] who will be coming to see pt. Bette Hayes [phone]
[2021-01-12 11:23] LABS: Add Manual Diff / Slide Review NO; Basophils Absolute Auto 0 /uL (0-100); Basophils Percent Auto 0.4 % (0-2); Eosinophils Absolute Auto 100 /uL (0-450); Eosinophils Percent Auto 1.4 % (2-4); Hematocrit 41.8 % (36-46); Hemoglobin 14.2 g/dL (12.0-16.0); Lymphocytes Absolute Auto 1100 /uL (1100-4500); Mean Corpuscular Hemoglobin 33.1 PG (26-34); Mean Corpuscular Volume 97.4 fL (80-100); Monocytes Absolute Auto 700 /uL (0-900); Monocytes Percent Auto 8.2 % (3-14); Neutrophils Absolute Auto 6300 /uL (1500-7000); Platelet Count 155 X10^3/uL (150-400); Red Blood Cell Count 4.29 X10^6/uL (4.0-5.2); Red Cell Distribution Width 12.7 % (11.6-14.8); White Blood Cell Count 8.2 X10^3/uL (4.5-11.0)
[2021-01-12 11:37] LABS: Alanine Aminotransferase 12 IU/L (<35); Albumin 4.3 g/dL (3.5-5.0); Albumin Globulin Ratio 1.4 (1.0-2.8); Alkaline Phosphatase 73 U/L (38-126); Aspartate Aminotransferase 23 IU/L (14-36); BUN Creatinine Ratio 36.4 (6-22); Bilirubin Total 1.3 mg/dL (0.2-1.3); Blood Urea Nitrogen 24 mg/dL (7-17); Calcium 10.1 mg/dL (8.4-10.2); Carbon Dioxide 28 mmol/L (22-32); Chloride 104 mmol/L (98-107); Estimated Glomerular Filt Rate > 60.0 mL/min (>60); Glucose 137 mg/dL (80-110); HEMOLYSIS < 15 (0-50); Potassium 3.8 mmol/L (3.4-5.1); Sodium 141 mmol/L (137-145); Total Protein 7.3 g/dL (6.3-8.2)
[2021-01-12 12:20] LABS: COVID19 -Nasal RAPID Negative (Negative)
[2021-01-12 13:01] VITALS: BP 161/83; PULSE 90; O2SAT 94
--- NOTE | 2021-01-12 14:40 | DI.CT.S_ITS ---
PROCEDURE: CT ABDOMEN PELVIS W CON INDICATIONS: Generalized abdominal tenderness TECHNIQUE: After the administration of intravenous contrast, axial sections acquired from the lung bases to the pubic symphysis. Coronal and sagittal reformats were performed. For radiation dose reduction, the following was used: automated exposure control, adjustment of mA and/or kV according to patient size. COMPARISON: [facility] [place], CR, XR LUMBAR SPINE 2 OR 3 VIEWS, 12/23/2020, 10:59. [facility] [place], CR, XR LUMBAR SPINE 2 OR 3 VIEWS, 10/14/2020, 14:36. [facility], CR, XR LUMBAR SPINE 2-3V, 09/05/2020, 16:40. [facility], RG, CT L SPINE WITHOUT CONTRAST, 02/24/2020, 13:03. FINDINGS: Image quality: Excellent. Lung bases: There is a very large hiatal hernia containing abundant fat and colon. The stomach does not extend into the hernia. Heart: No significant findings. ABDOMEN: Liver: Unremarkable. Gallbladder: Multiple large gallstones. No gallbladder wall thickening. Biliary ducts: Unremarkable. Pancreas: Unremarkable. Spleen: Unremarkable. Adrenal Glands: Unremarkable. Kidneys and Ureters: Unremarkable. Stomach and Bowel: Diverticulosis without evidence of diverticulitis. Peritoneum: No abnormal intraperitoneal fluid. No free air. Ventral Wall: No hernias. Abdominal Nodes: No retroperitoneal or mesenteric adenopathy by size criteria. Vessels: Aorta and inferior vena cava are normal in size. PELVIS: Pelvic Organs: Unremarkable. Bladder: Prominent diffuse bladder wall thickening.. Pelvic Nodes: No enlarged lymph nodes. Miscellaneous: Left inguinal hernia containing nonobstructed bowel. Fat containing right inguinal hernia. Bones: Posterior lateral shahnaz and pedicle screw fixation occurred at L4-L5 since the initial outside CT. That CT was performed prior to orthopedic fixation. And L5 compression fracture has occurred since the February 2020 CT. The bilateral L5 pedicle screws extend into the disc space. IMPRESSION: 1. There is a very large hiatal hernia containing abundant fat and nonobstructed colon. 2. There is a bowel containing left inguinal hernia. There is a fat containing right inguinal hernia. 3. Cholelithiasis. 4. Prominent diffuse bladder wall thickening consistent with cystitis. 5. Interval posterior lateral shahnaz and pedicle screw fixation at L4-L5 since the initial CT. Interval moderate L5 compression fracture. The bilateral L5 pedicle screws extend into the disc space. Dictated by: Justin Burgos M.D. on 01/12/2021 at 15:24 Approved by: Justin Burgos M.D. on 01/12/2021 at 15:28
--- NOTE | 2021-01-12 14:51 | ED_ITS ---
HPI - Recheck/Abnormal Lab/Rx <Husam Daigle PA-C - Last Filed: 01/12/21 19:16> General Chief Complaint: Recheck/Abnormal Lab/Rx Stated Complaint: Need Social Work Time Seen by Provider: 01/12/21 12:06 Source: patient Mode of arrival: EMS Limitations: no limitations History of Present Illness HPI narrative: 80-year-old female with past medical history Parkinson's disease, spinal stenosis, status post CABG presents to the ED for placement to a long- term facility. Patient recently had spinal surgery, following which she was in rehab for 2-1/2 months, and then went to stay at a motel for a week. Patient states she was kicked out of the motel since she was unable to care for herself. Patient needs a 2 person assist currently for her ADL, without which she is incontinent of urine and stool. Patient was brought to the ED by EMS for placement to a long-term care facility. Patient denies fever, chills, chest pain, shortness of breath, cough, nausea, vomiting, abdominal pain, syncope. Patient endorses dysuria, requesting medications for UTI. Related Data Home Medications Medication Instructions Recorded Confirmed albuterol sulfate 90 mcg/actuation 1 - 2 puff INHALATION DIRECTED 07/16/20 01/12/21 aerosol inhaler PRN lisinopril 10 mg tablet 10 mg PO DAILY 07/16/20 01/12/21 acetaminophen 325 mg tablet 650 mg PO Q4H PRN 01/12/21 01/12/21 aspirin 81 mg capsule 81 mg PO DAILY 01/12/21 01/12/21 atorvastatin 20 mg tablet 20 mg PO BEDTIME 01/12/21 01/12/21 carbidopa 25 mg-levodopa 100 mg 1 tab PO TID 01/12/21 01/12/21 tablet gabapentin 100 mg capsule 100 mg PO TID 01/12/21 01/12/21 oxybutynin chloride 5 mg tablet 5 mg PO BID 01/12/21 01/12/21 Previous Rx's Medication Instructions Recorded hydroxyzine pamoate 25 mg capsule 25 mg PO Q4HR PRN #30 cap 09/08/20 Allergies Allergy/AdvReac Type Severity Reaction Status Date / Time No Known Drug Allergies Allergy Verified 07/10/20 11:19 Review of Systems <Husam Daigle PA-C - Last Filed: 01/12/21 19:16> Constitutional Constitutional: Denies chills, Denies fatigue, Denies fever(s), Denies frequent falls, Denies lethargy and Denies weakness Eyes Eyes: Denies change in vision, Denies eye discharge, Denies irritation and Denies loss of vision ENT Ears, Nose, Mouth, and Throat: Denies change in voice, Denies dizziness, Denies neck pain, Denies sore throat and Denies throat swelling Cardiovascular Cardiovascular: Denies chest pain, Denies irregular heart rhythm, Denies lightheadedness, Denies palpitations, Denies dyspnea, Denies dyspnea on exertion and Denies orthopnea Respiratory Respiratory: Denies cough, Denies dyspnea, Denies dyspnea on exertion and Denies wheezing Gastrointestinal Gastrointestinal: Denies abdominal pain, Denies change in bowel habits, Denies diarrhea, Denies nausea and Denies vomiting Genitourinary Genitourinary: Reports dysuria Musculoskeletal Musculoskeletal: Denies neck pain and Denies numbness Integumentary/Breasts Skin/Breast: Denies pruritus, Denies erythema, Denies rash and Denies wounds Neurologic Neurologic: Denies behavioral changes, Denies confusion, Denies dizziness, Gerson es frequent falls, Denies loss of vision, Denies numbness and Denies weakness Psychiatric Psychiatric: Denies anxiety, Denies behavioral changes, Denies confusion, Denies depression, Denies homicidal ideation and Denies suicidal ideation Endocrine Endocrine: Denies fatigue, Denies flushing and Denies palpitations Hematologic/Lymphatic Hematologic/Lymphatic: Denies easy bruising Allergic/Immunologic Allergic/Immunologic: Denies urticaria, Denies throat swelling and Denies wheezing Patient History <Husam Daigle PA-C - Last Filed: 01/12/21 19:16> Medical History Gait instability HLD (hyperlipidemia) HTN (hypertension) Lumbar radiculopathy Right foot drop Surgical History H/O heart bypass surgery H/O lumbosacral spine surgery Family History Father Heart disease, congenital Mother Congestive heart failure Social History household members: other Smoking Status: Never smoker alcohol intake: never Smoking Status: Never smoker Substance Use Type: opiates Exam <Husam Daigle PA-C - Last Filed: 01/12/21 19:16> Initial Vital Signs Initial Vital Signs: Vital Signs Temperature 97.1 F L 01/12/21 10:21 Pulse Rate 80 01/12/21 10:21 Respiratory Rate 14 01/12/21 10:21 Blood Pressure 153/81 H 01/12/21 10:21 Pulse Oximetry 93 01/12/21 10:21 Const General: cooperative HENNY Head: normocephalic and atraumatic Ears: external ears normal and TM's normal bilaterally Nose: external nose normal and No nasal discharge Face and sinus: sinuses nontender, face symmetric, no sinus tenderness and No dry mucous membranes Mouth: oral mucosae normal and moist mucous membranes Teeth and gingiva: dentition normal Throat: tonsils normal and uvula midline Eyes General: appearance normal, both eyes and all related structures Eyelids: eyelids normal Conjunctivae: conjunctivae normal Sclera: sclerae normal Pupils: PERRL EOM: EOM intact bilaterally Neck Neck: normal visual inspection, trachea midline, No lymphadenopathy, No midline deformity and No JVD Lymphatic: No lymphedema Chest Chest: normal inspection of the chest Resp Effort & Inspection: normal respiratory effort, able to speak in complete sentences, no respiratory distress and no use of accessory muscles Auscultation: clear to auscultation bilaterally, no rales, no rhonchi and no wheezes Cardio Rate: regular rate Rhythm: regular rhythm Heart Sounds: no click, no gallops, no murmurs and no rubs Pulses: normal peripheral pulses GI Inspection: non-distended Palpation: soft, no hepatosplenomegaly, No guarding, No pulsatile mass and No tender Auscultation: normal bowel sounds Other: Abdomen is soft, nondistended. Diffuse tenderness to palpation. Negative CVA tenderness. Back/Spine/Pelvis Back: No CVA tenderness Cervical Spine: cervical ROM normal and No pain with cervical ROM Thoracic/Lumbar Spine: thoracic and lumbar spine normal to inspection Skin General: no rashes or lesions noted, No jaundice and No petechiae Neuro General: patient alert, patient oriented x3, gait normal and no focal motor deficits Speech: speech normal Extrem General: full ROM, no clubbing, cyanosis or edema, no pedal edema and no calf tenderness Psych Appearance: well kempt Mental Status: mental status grossly normal Attitude: cooperative Thought Content: normal and suicidality Judgment: judgment good <Ihsan Tamayo DO - Last Filed: 01/14/21 00:23> Initial Vital Signs Initial Vital Signs: Vital Signs Temperature 97.1 F L 01/12/21 10:21 Pulse Rate 80 01/12/21 10:21 Respiratory Rate 14 01/12/21 10:21 Blood Pressure 153/81 H 01/12/21 10:21 Pulse Oximetry 93 01/12/21 10:21 <Grant Pollard MD - Last Filed: 01/13/21 18:56> Initial Vital Signs Initial Vital Signs: Vital Signs Temperature 97.1 F L 01/12/21 10:21 Pulse Rate 80 01/12/21 10:21 Respiratory Rate 14 01/12/21 10:21 Blood Pressure 153/81 H 01/12/21 10:21 Pulse Oximetry 93 01/12/21 10:21 Course <Husam Daigle PA-C - Last Filed: 01/12/21 19:16> Course Course Narrative: UA positive for UTI. Started patient on ciprofloxacin. Started patient on daily medications. Per MARIBEL: [facility] may be be able to take pt tomorrow. APS to pay patient bill. APS MARIBEL Murray (Ph. # [phone]) Patient will board in the ED until tomorrow. Orders Ordered: Aspirin (Aspirin Ec 81 Mg Tablet) 81 mg PO 0700 [facility] Last Admin: 01/13/21 07:46 Dose: 81 mg Documented by: DAYTON Atorvastatin Calcium (Atorvastatin 20 Mg Tablet) 20 mg PO BEDTIME [facility] Last Admin: 01/13/21 21:20 Dose: Not Given Documented by: Admin: 01/13/21 19:29 Dose: 20 mg Documented by: Admin: 01/12/21 20:31 Dose: 20 mg Documented by: GEORGE Carbidopa/Levodopa (Carbidopa-Levodopa 25/100 Tablet) 1 each PO 0700,1400,2100 [facility] Last Admin: 01/13/21 21:21 Dose: Not Given Documented by: Admin: 01/13/21 19:29 Dose: 1 each Documented by: Admin: 01/13/21 14:04 Dose: 1 each Documented by: Admin: 01/13/21 07:52 Dose: 1 each Documented by: DAYTON Ciprofloxacin (Ciprofloxacin 250 Mg Tablet) 500 mg PO 0700,1900 [facility] Last Admin: 01/13/21 19:28 Dose: 500 mg Documented by: Admin: 01/13/21 07:46 Dose: 500 mg Documented by: DAYTON Gabapentin (Gabapentin 100 Mg Capsule) 100 mg PO 0700,1400,2100 [facility] Last Admin: 01/13/21 21:20 Dose: Not Given Documented by: Admin: 01/13/21 19:28 Dose: 100 mg Documented by: Admin: 01/13/21 14:04 Dose: 100 mg Documented by: Admin: 01/13/21 07:47 Dose: 100 mg Documented by: DAYTON Lisinopril (Lisinopril 10 Mg Tablet) 10 mg PO 0700 [facility] Last Admin: 01/13/21 07:48 Dose: 10 mg Documented by: DAYTON Oxybutynin (Oxybutynin 5 Mg Tablet) 5 mg PO 0700,1900 [facility] Last Admin: 01/13/21 19:28 Dose: 5 mg Documented by: Admin: 01/13/21 07:47 Dose: 5 mg Documented by: DAYTON Discontinued Medications Alprazolam (Alprazolam 0.25 Mg Tablet) 0.25 mg PO NOW ONE Stop: 01/12/21 21:06 Last Admin: 01/12/21 21:09 Dose: 0.25 mg Documented by: GEORGE Alprazolam (Alprazolam 0.25 Mg Tablet) 0.25 mg PO NOW ONE Stop: 01/13/21 19:01 Last Admin: 01/13/21 19:28 Dose: 0.25 mg Documented by: FATIMAH Carbidopa/Levodopa (Carbidopa-Levodopa 25/100 Tablet) 1 each PO NOW ONE Stop: 01/12/21 14:42 Last Admin: 01/12/21 15:22 Dose: Not Given Documented by: MARYANNE Carbidopa/Levodopa (Carbidopa-Levodopa 25/100 Tablet) 1 each PO TID [facility] Last Admin: 01/12/21 20:32 Dose: 1 each Documented by: Admin: 01/12/21 15:54 Dose: 1 each Documented by: DAYTON Ciprofloxacin (Ciprofloxacin 250 Mg Tablet) 500 mg PO BID [facility] Last Admin: 01/12/21 20:31 Dose: 500 mg Documented by: GEORGE Ciprofloxacin (Ciprofloxacin 250 Mg Tablet) 500 mg PO NOW ONE Stop: 01/12/21 18:04 Last Admin: 01/12/21 18:36 Dose: 500 mg Documented by: DAYTON Gabapentin (Gabapentin 100 Mg Capsule) 100 mg PO TID [facility] Last Admin: 01/12/21 20:31 Dose: 100 mg Documented by: Admin: 01/12/21 15:54 Dose: 100 mg Documented by: DAYTON Oxybutynin (Oxybutynin 5 Mg Tablet) 5 mg PO BID [facility] Last Admin: 01/12/21 20:31 Dose: 5 mg Documented by: GEORGE Vital Signs Vital signs: Vital Signs - 8 hr 01/13/21 17:20 Pulse Rate 76 Blood Pressure 128/70 Pulse Oximetry 99 <Ihsan Tamayo DO - Last Filed: 01/14/21 00:23> Course Course Narrative: UA positive for UTI. Started patient on ciprofloxacin. Started patient on daily medications. Per MARIBEL: [facility] may be be able to take pt tomorrow. APS to pay patient bill. APS MARIBEL [facility] (Ph. # [phone]) Patient will board in the ED until tomorrow. 1999 - Patient received in sign out. I've performed an independent history and physical, patient will be in ED until placement (hopefully tomorrow). 0600 - patient rested much of the night with no issues. Requested a dose of Alprazolam 0700 - signed out to Dr. Pollard for final disposition. Orders Ordered: Aspirin (Aspirin Ec 81 Mg Tablet) 81 mg PO 0700 [facility] Last Admin: 01/13/21 07:46 Dose: 81 mg Documented by: DAYTON Atorvastatin Calcium (Atorvastatin 20 Mg Tablet) 20 mg PO BEDTIME [facility] Last Admin: 01/13/21 21:20 Dose: Not Given Documented by: Admin: 01/13/21 19:29 Dose: 20 mg Documented by: Admin: 01/12/21 20:31 Dose: 20 mg Documented by: GEORGE Carbidopa/Levodopa (Carbidopa-Levodopa 25/100 Tablet) 1 each PO 0700,1400,2100 [facility] Last Admin: 01/13/21 21:21 Dose: Not Given Documented by: Admin: 01/13/21 19:29 Dose: 1 each Documented by: Admin: 01/13/21 14:04 Dose: 1 each Documented by: Admin: 01/13/21 07:52 Dose: 1 each Documented by: DAYTON Ciprofloxacin (Ciprofloxacin 250 Mg Tablet) 500 mg PO 0700,1900 [facility] Last Admin: 01/13/21 19:28 Dose: 500 mg Documented by: Admin: 01/13/21 07:46 Dose: 500 mg Documented by: DAYTON Gabapentin (Gabapentin 100 Mg Capsule) 100 mg PO 0700,1400,2100 [facility] Last Admin: 01/13/21 21:20 Dose: Not Given Documented by: Admin: 01/13/21 19:28 Dose: 100 mg Documented by: Admin: 01/13/21 14:04 Dose: 100 mg Documented by: Admin: 01/13/21 07:47 Dose: 100 mg Documented by: DAYTON Lisinopril (Lisinopril 10 Mg Tablet) 10 mg PO 0700 [facility] Last Admin: 01/13/21 07:48 Dose: 10 mg Documented by: DAYTON Oxybutynin (Oxybutynin 5 Mg Tablet) 5 mg PO 0700,1900 [facility] Last Admin: 01/13/21 19:28 Dose: 5 mg Documented by: Admin: 01/13/21 07:47 Dose: 5 mg Documented by: DAYTON Discontinued Medications Alprazolam (Alprazolam 0.25 Mg Tablet) 0.25 mg PO NOW ONE Stop: 01/12/21 21:06 Last Admin: 01/12/21 21:09 Dose: 0.25 mg Documented by: GEORGE Alprazolam (Alprazolam 0.25 Mg Tablet) 0.25 mg PO NOW ONE Stop: 01/13/21 19:01 Last Admin: 01/13/21 19:28 Dose: 0.25 mg Documented by: FATIMAH Carbidopa/Levodopa (Carbidopa-Levodopa 25/100 Tablet) 1 each PO NOW ONE Stop: 01/12/21 14:42 Last Admin: 01/12/21 15:22 Dose: Not Given Documented by: MARYANNE Carbidopa/Levodopa (Carbidopa-Levodopa 25/100 Tablet) 1 each PO TID [facility] Last Admin: 01/12/21 20:32 Dose: 1 each Documented by: Admin: 01/12/21 15:54 Dose: 1 each Documented by: DAYTON Ciprofloxacin (Ciprofloxacin 250 Mg Tablet) 500 mg PO BID [facility] Last Admin: 01/12/21 20:31 Dose: 500 mg Documented by: GEORGE Ciprofloxacin (Ciprofloxacin 250 Mg Tablet) 500 mg PO NOW ONE Stop: 01/12/21 18:04 Last Admin: 01/12/21 18:36 Dose: 500 mg Documented by: DAYTON Gabapentin (Gabapentin 100 Mg Capsule) 100 mg PO TID [facility] Last Admin: 01/12/21 20:31 Dose: 100 mg Documented by: Admin: 01/12/21 15:54 Dose: 100 mg Documented by: DAYTON Oxybutynin (Oxybutynin 5 Mg Tablet) 5 mg PO BID [facility] Last Admin: 01/12/21 20:31 Dose: 5 mg Documented by: GEORGE Vital Signs Vital signs: Vital Signs - 8 hr 01/13/21 17:20 Pulse Rate 76 Blood Pressure 128/70 Pulse Oximetry 99 <Grant Pollard MD - Last Filed: 01/13/21 18:56> Orders Ordered: Aspirin (Aspirin Ec 81 Mg Tablet) 81 mg PO 0700 [facility] Last Admin: 01/13/21 07:46 Dose: 81 mg Documented by: DAYTON Atorvastatin Calcium (Atorvastatin 20 Mg Tablet) 20 mg PO BEDTIME [facility] Last Admin: 01/13/21 21:20 Dose: Not Given Documented by: Admin: 01/13/21 19:29 Dose: 20 mg Documented by: Admin: 01/12/21 20:31 Dose: 20 mg Documented by: GEORGE Carbidopa/Levodopa (Carbidopa-Levodopa 25/100 Tablet) 1 each PO 0700,1400,2100 [facility] Last Admin: 01/13/21 21:21 Dose: Not Given Documented by: Admin: 01/13/21 19:29 Dose: 1 each Documented by: Admin: 01/13/21 14:04 Dose: 1 each Documented by: Admin: 01/13/21 07:52 Dose: 1 each Documented by: DAYTON Ciprofloxacin (Ciprofloxacin 250 Mg Tablet) 500 mg PO 0700,1900 [facility] Last Admin: 01/13/21 19:28 Dose: 500 mg Documented by: Admin: 01/13/21 07:46 Dose: 500 mg Documented by: DAYTON Gabapentin (Gabapentin 100 Mg Capsule) 100 mg PO 0700,1400,2100 [facility] Last Admin: 01/13/21 21:20 Dose: Not Given Documented by: Admin: 01/13/21 19:28 Dose: 100 mg Documented by: Admin: 01/13/21 14:04 Dose: 100 mg Documented by: Admin: 01/13/21 07:47 Dose: 100 mg Documented by: DAYTON Lisinopril (Lisinopril 10 Mg Tablet) 10 mg PO 0700 [facility] Last Admin: 01/13/21 07:48 Dose: 10 mg Documented by: DAYTON Oxybutynin (Oxybutynin 5 Mg Tablet) 5 mg PO 0700,1900 [facility] Last Admin: 01/13/21 19:28 Dose: 5 mg Documented by: Admin: 01/13/21 07:47 Dose: 5 mg Documented by: DAYTON Discontinued Medications Alprazolam (Alprazolam 0.25 Mg Tablet) 0.25 mg PO NOW ONE Stop: 01/12/21 21:06 Last Admin: 01/12/21 21:09 Dose: 0.25 mg Documented by: GEORGE Alprazolam (Alprazolam 0.25 Mg Tablet) 0.25 mg PO NOW ONE Stop: 01/13/21 19:01 Last Admin: 01/13/21 19:28 Dose: 0.25 mg Documented by: FATIMAH Carbidopa/Levodopa (Carbidopa-Levodopa 25/100 Tablet) 1 each PO NOW ONE Stop: 01/12/21 14:42 Last Admin: 01/12/21 15:22 Dose: Not Given Documented by: MARYANNE Carbidopa/Levodopa (Carbidopa-Levodopa 25/100 Tablet) 1 each PO TID [facility] Last Admin: 01/12/21 20:32 Dose: 1 each Documented by: Admin: 01/12/21 15:54 Dose: 1 each Documented by: DAYTON Ciprofloxacin (Ciprofloxacin 250 Mg Tablet) 500 mg PO BID [facility] Last Admin: 01/12/21 20:31 Dose: 500 mg Documented by: GEORGE Ciprofloxacin (Ciprofloxacin 250 Mg Tablet) 500 mg PO NOW ONE Stop: 01/12/21 18:04 Last Admin: 01/12/21 18:36 Dose: 500 mg Documented by: DAYTON Gabapentin (Gabapentin 100 Mg Capsule) 100 mg PO TID [facility] Last Admin: 01/12/21 20:31 Dose: 100 mg Documented by: Admin: 01/12/21 15:54 Dose: 100 mg Documented by: DAYTON Oxybutynin (Oxybutynin 5 Mg Tablet) 5 mg PO BID [facility] Last Admin: 01/12/21 20:31 Dose: 5 mg Documented by: GEORGE Vital Signs Vital signs: Vital Signs - 8 hr 01/13/21 17:20 Pulse Rate 76 Blood Pressure 128/70 Pulse Oximetry 99 MDM - Recheck/Abnormal Lab/Rx <Husam Daigle PA-C - Last Filed: 01/12/21 19:16> Lab Data Lab results narrative: Labs within normal limits. UA positive for UTI. Result diagrams: 01/12/21 11:10 01/12/21 11:10 Labs: Lab Results 01/12/21 01/12/21 01/12/21 Range/Units 11:10 11:10 11:37 WBC 8.2 (4.5-11.0) X10^3/uL RBC 4.29 (4.0-5.2) X10^6/uL Hgb 14.2 (12.0-16.0) g/dL Hct 41.8 (36-46) % MCV 97.4 (80-100) fL MCH 33.1 (26-34) PG MCHC 34.0 (30-36) % RDW 12.7 (11.6-14.8) % Plt Count 155 (150-400) X10^3/uL Neut % (Auto) 77.0 H (50-75) % Lymph % (Auto) 13.0 L (25-40) % [place] % (Auto) 8.2 (3-14) % Eos % (Auto) 1.4 L (2-4) % Baso % (Auto) 0.4 (0-2) % Neut # (Auto) 6300 (4220-6257) /uL Lymph # (Auto) 1100 (4392-5637) /uL [place] # (Auto) 700 (0-900) /uL Eos # (Auto) 100 (0-450) /uL Baso # (Auto) 0 (0-100) /uL Sodium 141 (137-145) mmol/L Potassium 3.8 (3.4-5.1) mmol/L Chloride 104 (98-107) mmol/L Carbon Dioxide 28 (22-32) mmol/L BUN 24 H (7-17) mg/dL Creatinine 0.66 (0.52-1.04) mg/dL Estimated GFR > 60.0 (>60) mL/min BUN/Creatinine Ratio 36.4 H (6-22) Glucose 137 H (80-110) mg/dL Calcium 10.1 (8.4-10.2) mg/dL Total Bilirubin 1.3 (0.2-1.3) mg/dL AST 23 (14-36) IU/L ALT 12 (<35) IU/L Alkaline Phosphatase 73 (38-126) U/L Total Protein 7.3 (6.3-8.2) g/dL Albumin 4.3 (3.5-5.0) g/dL Globulin 3.0 (1.7-4.1) g/dL Albumin/Globulin Ratio 1.4 (1.0-2.8) Urine Color Urine Appearance Urine pH (4.5-8.0) Ur Specific [place] (1.000-1.035) Urine Protein (Negative) Urine Glucose (UA) (Negative) g/dL Urine Ketones (NEGATIVE) Urine Occult Blood (Negative) Urine Nitrate (Negative) Urine Bilirubin (NEGATIVE) Urine Urobilinogen (0.2) E.U./dL Ur Leukocyte Esterase (NEGATIVE) Urine RBC (0-5/HPF) Urine WBC (0-5/HPF) Ur Squamous Epith Cells (0-5/HPF) Ur Transition Epith Cell (0-5/HPF) Ur Renal Epithelial Cell (0-1/HPF) Other Crystals Amorphous Sediment Urine Bacteria (None) Ur Culture Indicated? SARS-CoV-2 (PCR) Negative (Negative) 11/08/21 Range/Units 15:40 WBC (4.5-11.0) X10^3/uL RBC (4.0-5.2) X10^6/uL Hgb (12.0-16.0) g/dL Hct (36-46) % MCV (80-100) fL MCH (26-34) PG MCHC (30-36) % RDW (11.6-14.8) % Plt Count (150-400) X10^3/uL Neut % (Auto) (50-75) % Lymph % (Auto) (25-40) % [place] % (Auto) (3-14) % Eos % (Auto) (2-4) % Baso % (Auto) (0-2) % Neut # (Auto) (2575-6413) /uL Lymph # (Auto) (2692-5225) /uL [place] # (Auto) (0-900) /uL Eos # (Auto) (0-450) /uL Baso # (Auto) (0-100) /uL Sodium (137-145) mmol/L Potassium (3.4-5.1) mmol/L Chloride (98-107) mmol/L Carbon Dioxide (22-32) mmol/L BUN (7-17) mg/dL Creatinine (0.52-1.04) mg/dL Estimated GFR (>60) mL/min BUN/Creatinine Ratio (6-22) Glucose (80-110) mg/dL Calcium (8.4-10.2) mg/dL Total Bilirubin (0.2-1.3) mg/dL AST (14-36) IU/L ALT (<35) IU/L Alkaline Phosphatase (38-126) U/L Total Protein (6.3-8.2) g/dL Albumin (3.5-5.0) g/dL Globulin (1.7-4.1) g/dL Albumin/Globulin Ratio (1.0-2.8) Urine Color Yellow Urine Appearance Cloudy Urine pH 8.5 H (4.5-8.0) Ur Specific [place] <=1.005 (1.000-1.035) Urine Protein 2+ H (Negative) Urine Glucose (UA) Negative (Negative) g/dL Urine Ketones Trace H (NEGATIVE) Urine Occult Blood 3+ H (Negative) Urine Nitrate Negative (Negative) Urine Bilirubin Negative (NEGATIVE) Urine Urobilinogen 0.2 (0.2) E.U./dL Ur Leukocyte Esterase Trace H (NEGATIVE) Urine RBC >100/hpf H (0-5/HPF) Urine WBC 5-10/hpf H (0-5/HPF) Ur Squamous Epith Cells 0-1 /hpf (0-5/HPF) Ur Transition Epith Cell 0-1/hpf (0-5/HPF) Ur Renal Epithelial Cell 0-1/hpf (0-1/HPF) Other Crystals 1+ amorphous Amorphous Sediment 2+ Urine Bacteria Moderate (10-30) H (None) Ur Culture Indicated? Specimen cultured SARS-CoV-2 (PCR) (Negative) Imaging Data CT scan - abdomen/pelvis: Radiologist's Impression: PROCEDURE:? CT ABDOMEN PELVIS W CON ? INDICATIONS:? Generalized abdominal tenderness ? TECHNIQUE:? After the administration of intravenous contrast, axial sections acquired from the lung bases to the pubic symphysis.? Coronal and sagittal reformats were performed.? For radiation dose reduction, the following was used:? automated exposure control, adjustment of mA and/or kV according to patient size.? ? COMPARISON:? [facility] [place], CR, XR LUMBAR SPINE 2 OR 3 VIEWS, 12/23/2020, 10:59.? [facility] [place], CR, XR LUMBAR SPINE 2 OR 3 VIEWS, 10/14/2020, 14:36.? [facility], CR, XR LUMBAR SPINE 2-3V, 09/05/2020, 16:40.? [facility], RG, CT L SPINE WITHOUT CONTRAST, 02/24/2020, 13:03. ? FINDINGS:? Image quality:? Excellent.? ? Lung bases:? There is a very large hiatal hernia containing abundant fat and colon.? The stomach does not extend into the hernia. Heart:? No significant findings. ? ABDOMEN: Liver:? Unremarkable.? ? Gallbladder:? Multiple large gallstones.? No gallbladder wall thickening. Biliary ducts:? Unremarkable.? ? Pancreas:? Unremarkable.? ? Spleen:? Unremarkable.? ? Adrenal Glands:? Unremarkable.? ? Kidneys and Ureters:? Unremarkable.? ? ? Stomach and Bowel:? Diverticulosis without evidence of diverticulitis.? Peritoneum:? No abnormal intraperitoneal fluid.? No free air.? ? Ventral Wall: ? No hernias.? Abdominal Nodes:? No retroperitoneal or mesenteric adenopathy by size criteria.? Vessels:? Aorta and inferior vena cava are normal in size.? ? PELVIS: Pelvic Organs:? Unremarkable.? ? Bladder:? Prominent diffuse bladder wall thickening..? ? Pelvic Nodes: No enlarged lymph nodes.? Miscellaneous:? Left inguinal hernia containing nonobstructed bowel.? Fat containing right inguinal hernia. ? Bones:? Posterior lateral shahnaz and pedicle screw fixation occurred at L4-L5 since the initial outside CT.? That CT was performed prior to orthopedic fixation.? And L5 compression fracture has occurred since the February [address] CT.? The bilateral L5 pedicle screws extend into the disc space. ? ? IMPRESSION:? ? 1. There is a very large hiatal hernia containing abundant fat and nonobstructed colon. ? 2. There is a bowel containing left inguinal hernia.? There is a fat containing right inguinal hernia. ? 3. Cholelithiasis. ? 4. Prominent diffuse bladder wall thickening consistent with cystitis. ? 5. Interval posterior lateral shahnaz and pedicle screw fixation at L4-L5 since the initial CT.? Interval moderate L5 compression fracture.? The bilateral L5 pedicle screws extend into the disc space.? ? ? Dictated by: Justin Burgos M.D. on 01/12/2021 at 15:24 ? ? Approved by: Justin Burgos M.D. on 01/12/2021 at 15:28 ? MDM Narrative Medical decision making narrative: 80-year-old female with past medical history Parkinson's disease, spinal stenosis, status post CABG presents to the ED for placement to a long-term facility. Concern for UTI versus abdominal pathology including SBO versus diverticulitis. Will order labs, UA, CT abdomen pelvis, COVID-19 test. Will put in daily medication orders, medical clear for placement to long-term care facility. <Ihsan Tamayo, DO - Last Filed: 01/14/21 00:23> Lab Data Labs: Lab Results 01/12/21 01/12/21 01/12/21 Range/Units 11:10 11:10 11:37 WBC 8.2 (4.5-11.0) X10^3/uL RBC 4.29 (4.0-5.2) X10^6/uL Hgb 14.2 (12.0-16.0) g/dL Hct 41.8 (36-46) % MCV 97.4 (80-100) fL MCH 33.1 (26-34) PG MCHC 34.0 (30-36) % RDW 12.7 (11.6-14.8) % Plt Count 155 (150-400) X10^3/uL Neut % (Auto) 77.0 H (50-75) % Lymph % (Auto) 13.0 L (25-40) % [place] % (Auto) 8.2 (3-14) % Eos % (Auto) 1.4 L (2-4) % Baso % (Auto) 0.4 (0-2) % Neut # (Auto) 6300 (4454-2902) /uL Lymph # (Auto) 1100 (8746-1794) /uL [place] # (Auto) 700 (0-900) /uL Eos # (Auto) 100 (0-450) /uL Baso # (Auto) 0 (0-100) /uL Sodium 141 (137-145) mmol/L Potassium 3.8 (3.4-5.1) mmol/L Chloride 104 (98-107) mmol/L Carbon Dioxide 28 (22-32) mmol/L BUN 24 H (7-17) mg/dL Creatinine 0.66 (0.52-1.04) mg/dL Estimated GFR > 60.0 (>60) mL/min BUN/Creatinine Ratio 36.4 H (6-22) Glucose 137 H (80-110) mg/dL Calcium 10.1 (8.4-10.2) mg/dL Total Bilirubin 1.3 (0.2-1.3) mg/dL AST 23 (14-36) IU/L ALT 12 (<35) IU/L Alkaline Phosphatase 73 (38-126) U/L Total Protein 7.3 (6.3-8.2) g/dL Albumin 4.3 (3.5-5.0) g/dL Globulin 3.0 (1.7-4.1) g/dL Albumin/Globulin Ratio 1.4 (1.0-2.8) Urine Color Urine Appearance Urine pH (4.5-8.0) Ur Specific [place] (1.000-1.035) Urine Protein (Negative) Urine Glucose (UA) (Negative) g/dL Urine Ketones (NEGATIVE) Urine Occult Blood (Negative) Urine Nitrate (Negative) Urine Bilirubin (NEGATIVE) Urine Urobilinogen (0.2) E.U./dL Ur Leukocyte Esterase (NEGATIVE) Urine RBC (0-5/HPF) Urine WBC (0-5/HPF) Ur Squamous Epith Cells (0-5/HPF) Ur Transition Epith Cell (0-5/HPF) Ur Renal Epithelial Cell (0-1/HPF) Other Crystals Amorphous Sediment Urine Bacteria (None) Ur Culture Indicated? SARS-CoV-2 (PCR) Negative (Negative) 01/12/21 Range/Units 15:40 WBC (4.5-11.0) X10^3/uL RBC (4.0-5.2) X10^6/uL Hgb (12.0-16.0) g/dL Hct (36-46) % MCV (80-100) fL MCH (26-34) PG MCHC (30-36) % RDW (11.6-14.8) % Plt Count (150-400) X10^3/uL Neut % (Auto) (50-75) % Lymph % (Auto) (25-40) % [place] % (Auto) (3-14) % Eos % (Auto) (2-4) % Baso % (Auto) (0-2) % Neut # (Auto) (4393-2623) /uL Lymph # (Auto) (5969-1871) /uL [place] # (Auto) (0-900) /uL Eos # (Auto) (0-450) /uL Baso # (Auto) (0-100) /uL Sodium (137-145) mmol/L Potassium (3.4-5.1) mmol/L Chloride (98-107) mmol/L Carbon Dioxide (22-32) mmol/L BUN (7-17) mg/dL Creatinine (0.52-1.04) mg/dL Estimated GFR (>60) mL/min BUN/Creatinine Ratio (6-22) Glucose (80-110) mg/dL Calcium (8.4-10.2) mg/dL Total Bilirubin (0.2-1.3) mg/dL AST (14-36) IU/L ALT (<35) IU/L Alkaline Phosphatase (38-126) U/L Total Protein (6.3-8.2) g/dL Albumin (3.5-5.0) g/dL Globulin (1.7-4.1) g/dL Albumin/Globulin Ratio (1.0-2.8) Urine Color Yellow Urine Appearance Cloudy Urine pH 8.5 H (4.5-8.0) Ur Specific [place] <=1.005 (1.000-1.035) Urine Protein 2+ H (Negative) Urine Glucose (UA) Negative (Negative) g/dL Urine Ketones Trace H (NEGATIVE) Urine Occult Blood 3+ H (Negative) Urine Nitrate Negative (Negative) Urine Bilirubin Negative (NEGATIVE) Urine Urobilinogen 0.2 (0.2) E.U./dL Ur Leukocyte Esterase Trace H (NEGATIVE) Urine RBC >100/hpf H (0-5/HPF) Urine WBC 5-10/hpf H (0-5/HPF) Ur Squamous Epith Cells 0-1 /hpf (0-5/HPF) Ur Transition Epith Cell 0-1/hpf (0-5/HPF) Ur Renal Epithelial Cell 0-1/hpf (0-1/HPF) Other Crystals 1+ amorphous Amorphous Sediment 2+ Urine Bacteria Moderate (10-30) H (None) Ur Culture Indicated? Specimen cultured SARS-CoV-2 (PCR) (Negative) <Grant Pollard MD - Last Filed: 01/13/21 18:56> Lab Data Labs: Lab Results 01/12/21 01/12/21 01/12/21 Range/Units 11:10 11:10 11:37 WBC 8.2 (4.5-11.0) X10^3/uL RBC 4.29 (4.0-5.2) X10^6/uL Hgb 14.2 (12.0-16.0) g/dL Hct 41.8 (36-46) % MCV 97.4 (80-100) fL MCH 33.1 (26-34) PG MCHC 34.0 (30-36) % RDW 12.7 (11.6-14.8) % Plt Count 155 (150-400) X10^3/uL Neut % (Auto) 77.0 H (50-75) % Lymph % (Auto) 13.0 L (25-40) % [place] % (Auto) 8.2 (3-14) % Eos % (Auto) 1.4 L (2-4) % Baso % (Auto) 0.4 (0-2) % Neut # (Auto) 6300 (0893-6535) /uL Lymph # (Auto) 1100 (1278-1203) /uL [place] # (Auto) 700 (0-900) /uL Eos # (Auto) 100 (0-450) /uL Baso # (Auto) 0 (0-100) /uL Sodium 141 (137-145) mmol/L Potassium 3.8 (3.4-5.1) mmol/L Chloride 104 (98-107) mmol/L Carbon Dioxide 28 (22-32) mmol/L BUN 24 H (7-17) mg/dL Creatinine 0.66 (0.52-1.04) mg/dL Estimated GFR > 60.0 (>60) mL/min BUN/Creatinine Ratio 36.4 H (6-22) Glucose 137 H (80-110) mg/dL Calcium 10.1 (8.4-10.2) mg/dL Total Bilirubin 1.3 (0.2-1.3) mg/dL AST 23 (14-36) IU/L ALT 12 (<35) IU/L Alkaline Phosphatase 73 (38-126) U/L Total Protein 7.3 (6.3-8.2) g/dL Albumin 4.3 (3.5-5.0) g/dL Globulin 3.0 (1.7-4.1) g/dL Albumin/Globulin Ratio 1.4 (1.0-2.8) Urine Color Urine Appearance Urine pH (4.5-8.0) Ur Specific [place] (1.000-1.035) Urine Protein (Negative) Urine Glucose (UA) (Negative) g/dL Urine Ketones (NEGATIVE) Urine Occult Blood (Negative) Urine Nitrate (Negative) Urine Bilirubin (NEGATIVE) Urine Urobilinogen (0.2) E.U./dL Ur Leukocyte Esterase (NEGATIVE) Urine RBC (0-5/HPF) Urine WBC (0-5/HPF) Ur Squamous Epith Cells (0-5/HPF) Ur Transition Epith Cell (0-5/HPF) Ur Renal Epithelial Cell (0-1/HPF) Other Crystals Amorphous Sediment Urine Bacteria (None) Ur Culture Indicated? SARS-CoV-2 (PCR) Negative (Negative) 01/12/21 Range/Units 15:40 WBC (4.5-11.0) X10^3/uL RBC (4.0-5.2) X10^6/uL Hgb (12.0-16.0) g/dL Hct (36-46) % MCV (80-100) fL MCH (26-34) PG MCHC (30-36) % RDW (11.6-14.8) % Plt Count (150-400) X10^3/uL Neut % (Auto) (50-75) % Lymph % (Auto) (25-40) % [place] % (Auto) (3-14) % Eos % (Auto) (2-4) % Baso % (Auto) (0-2) % Neut # (Auto) (4112-5817) /uL Lymph # (Auto) (5064-9031) /uL [place] # (Auto) (0-900) /uL Eos # (Auto) (0-450) /uL Baso # (Auto) (0-100) /uL Sodium (137-145) mmol/L Potassium (3.4-5.1) mmol/L Chloride (98-107) mmol/L Carbon Dioxide (22-32) mmol/L BUN (7-17) mg/dL Creatinine (0.52-1.04) mg/dL Estimated GFR (>60) mL/min BUN/Creatinine Ratio (6-22) Glucose (80-110) mg/dL Calcium (8.4-10.2) mg/dL Total Bilirubin (0.2-1.3) mg/dL AST (14-36) IU/L ALT (<35) IU/L Alkaline Phosphatase (38-126) U/L Total Protein (6.3-8.2) g/dL Albumin (3.5-5.0) g/dL Globulin (1.7-4.1) g/dL Albumin/Globulin Ratio (1.0-2.8) Urine Color Yellow Urine Appearance Cloudy Urine pH 8.5 H (4.5-8.0) Ur Specific [place] <=1.005 (1.000-1.035) Urine Protein 2+ H (Negative) Urine Glucose (UA) Negative (Negative) g/dL Urine Ketones Trace H (NEGATIVE) Urine Occult Blood 3+ H (Negative) Urine Nitrate Negative (Negative) Urine Bilirubin Negative (NEGATIVE) Urine Urobilinogen 0.2 (0.2) E.U./dL Ur Leukocyte Esterase Trace H (NEGATIVE) Urine RBC >100/hpf H (0-5/HPF) Urine WBC 5-10/hpf H (0-5/HPF) Ur Squamous Epith Cells 0-1 /hpf (0-5/HPF) Ur Transition Epith Cell 0-1/hpf (0-5/HPF) Ur Renal Epithelial Cell 0-1/hpf (0-1/HPF) Other Crystals 1+ amorphous Amorphous Sediment 2+ Urine Bacteria Moderate (10-30) H (None) Ur Culture Indicated? Specimen cultured SARS-CoV-2 (PCR) (Negative) Discharge Plan Departure Prescriptions: No Action hydroxyzine pamoate 25 mg Capsule 25 mg PO Q4HR PRN (Reason: Nausea And Vomiting, spasm) Qty: 30 RF: 0 atorvastatin 20 mg tablet 20 mg PO BEDTIME RF: 0 gabapentin 100 mg capsule 100 mg PO TID RF: 0 carbidopa-levodopa 25-100 mg tablet 1 tab PO TID RF: 0 oxybutynin chloride 5 mg tablet 5 mg PO BID RF: 0 aspirin 81 mg Capsule 81 mg PO DAILY RF: 0 acetaminophen 325 mg Tablet 650 mg PO Q4H PRN (Reason: fever/mild pain) RF: 0 lisinopril 10 mg tablet 10 mg PO DAILY RF: 0 albuterol sulfate 90 mcg/actuation HFA aerosol inhaler 1 - 2 puff inhalation DIRECTED PRN (Reason: Wheezing) RF: 0 Referrals: Marci Soliz PA-C [Primary Care Provider] -
--- NOTE | 2021-01-12 15:16 | CM.SWNOTE ---
Addendum entered by Teagan Conteh 01/13/21 17:19: ATTENUATOR Note ATTENUATOR leaves for [facility] and requests return call. ATTENUATOR is informed that [facility] is only taking COVID + patients. It is reported that [facility] in [place] has no beds. It is reported that [facility] has no beds. [facility] calls ATTENUATOR and leaves VM endorsing that they only have one short term bed and they do not have chcf care beds. ATTENUATOR calls back and leaves VM stating that patient is in need of a short term bed. ATTENUATOR receives VM from Georgia Hernandez, [facility] correctional casework specialist for Hospital patients. Georgia endorses that patient is not a hospital patient because she is not admitted and patient will get [facility] case management from the halfway unit. It is reported that the assigned ui programmer will be Dorota Landrum (Ph. # [phone]. ATTENUATOR calls Dorota and leaves requesting return call. It is reported that [facility] declines patient due to patient due to patient's acuity and short staff. ATTENUATOR to continue to seek SNF rehab bed for patient and to seek support from APS SW and [facility] case management. VANESA Brian Addendum entered by Teagan Conteh 01/13/21 13:54: ATTENUATOR Calls [facility] for Swing beds, it is reported that they have no swing beds until next week. ATTENUATOR calls [facility] and obtains [facility] correctional casework specialist Georgia Hernandez's Phone number (Ph. # [phone]) VANESA Brian Addendum entered by Teagan Conteh 01/13/21 13:28: ATTENUATOR calls patient's APS SW, it is reported that the state may not be able to come up with the funds to pay patient's bill at [facility]. Rena at [facility] calls ATTENUATOR and asks for update regarding patient and states they have a bed available for patient if bill is paid. ATTENUATOR calls [facility] in [place], it is reported they have beds and can review patient. ATTENUATOR faxes clinicals. ATTENUATOR faxes clinicals to [facility]. ATTENUATOR receives call from [facility] rehab in [place], it is reported that they have no intermodal truck driver care beds and patient cannot be approved for SNF rehab bed at this time due to patient's leave AMA at last SNF. ATTENUATOR calls [facility] in [place], it is reported that they have SNF beds. ATTENUATOR faxes clinicals for review. Plan: ATTENUATOR to call SNF rehab facilities to seek bed for patient. VANESA Brian Addendum entered by Teagan Conteh 01/12/21 16:20: ATTENUATOR receives call from APS MARIBEL who endorses that APS can pay for the $2600 balance for patient at [facility], and APS MARIBEL has discussed this with Rena at [facility]. It has been reported that patient could be able to transfer back to [facility] tomorrow potentially. APS SW endorses that it was reported that patient would spend her money on other things and that $1300 of the balance is for the month of January to ensure it is paid. ATTENUATOR reviews this with patient. Patient endorses that she thought that the [facility] was charging patient each month and she had made payments. ATTENUATOR reviews this ED provider Husam Daigle PA-C who indicates agreement and understanding and indicates that patient will be boarding until patient is transferred back to [facility]. VANESA Brian Original Note: ATTENUATOR Assessment Note ATTENUATOR receives consult. Patient is 80 y/o female who presents to the ED due to concern for ability to care for self and in need of social work consult. ATTENUATOR speaks with Community Machinist [employer] Harpal who met with patient on Tuesday. Harpal endorses that patient left [facility] SNF rehab by choice a week ago. Patient has been staying at a motel and reported that she was not getting the rehab support she envisioned. Patient had endorsed seeking to stay at [facility] or [facility]. Patient does not have current Health and community educator since she left [facility] but she was previously working with Violette (Ph. # [phone]). Patient's APS private investigator surveillance Terri Hayes (Ph. # [phone]) enters room to meet with patient as well. Patient is A/Ox4. Patient endorses that she was asked to leave the motel she was staying in due to the condition of the room. Patient endorses she has a friend that will assist in picking up her belongings. Patient endorses that she knows she was not safe living alone at her motel. Patient endorses that she utilizes [employer] on the Tablet and her scooter for transportation. Patient endorses that she has a brother and sister in law in [place] but they have their own medical concerns at this time. Patient endorses that she is interested in having her brother be her Power of [place] Head Counselor. Patient endorses that her and children have . Patient endorses that her was a . Patient endorses that she needs assistance getting in and out of bed and and transferring. Patient endorses that she fell twice at the motel. Patient had been residing at [facility] since September 2020 after a back surgery. Patient endorses prior to that she resided at [facility] in [place] for two years. Patient endorses dx of Arthritis in her hand, Parkinson's Disease, Eye Spasms, leg and back pain. ATTENUATOR calls August at [facility], it is reported taht they can take patient back if she pays her $2600 back payments. APS endorses that they could cover half of the cost and will look into full coverage of this expense. ATTENUATOR calls [facility] correctional casework specialist Violette who states that patient needs to apply for a new [facility] correctional casework specialist to assist in seeking a intermodal truck driver living situation. It is reported that [facility] did not think patient would be a good fit at this time. Violette suggests a phone call to patient's Financial correctional casework specialist Jolly Estrada (Ph. # [phone]). ATTENUATOR calls and leaves requesting return call. ATTENUATOR seeks for SNF rehab bed for patient. ATTENUATOR calls [facility], it is reported that there facility is full and there are no known discharges this week. ATTENUATOR calls [facility] admissions, it is reported they are full right now and may have openings at the end of the week. ATTENUATOR calls [facility] and it is reported that they can review patient and provides fax number for ATTENUATOR to fax clinical packet ( ). ATTENUATOR to fax packet when ED provider is complete with H&P. ATTENUATOR calls [facility] SNF admissions and leaves requesting return call. ATTENUATOR calls [facility] and leaves requesting return call. Plan: ATTENUATOR to continue to seek SNF rehab bed for patient, coordinate with [facility] correctional casework specialist and APS SW to identify appropriate POC for patient. VANESA Brian
[2021-01-12] MEDS: CARBIDOPA-LEVODOPA 25/100 TABLET 1 EACH PO ×2 (15:54→20:32)
[2021-01-12] MEDS: GABAPENTIN 100 MG CAPSULE PO ×2 (15:54→20:31)
[2021-01-12 15:57] LABS: Appearance Urine UA CLOUDY; Bilirubin Urine UA NEGATIVE (NEGATIVE); Color Urine UA YELLOW; Glucose Urine UA NEGATIVE (Negative); Ketones Urine UA TRACE (NEGATIVE); Leukocyte Esterase Urine UA TRACE (NEGATIVE); Nitrite Urine UA NEGATIVE (Negative); Occult Blood Urine UA 3+ (Negative); Protein Urine UA 2+ (Negative); Specific Gravity Urine UA <=1.005 (1.000-1.035); Urobilinogen Urine UA 0.2 E.U./dL (0.2)
[2021-01-12 16:00] LABS: pH Urine UA 8.5 (4.5-8.0)
[2021-01-12 16:07] LABS: Amorphous Sediment Urine 2+; Bacteria Urine Moderate (10-30); RBC Urine >100/HPF (0-5/HPF); Renal Epithelial Cells Urine 0-1/HPF (0-1/HPF); Squamous Epithelial Cell Urine 0-1 /HPF (0-5/HPF); Transitional Epi Cells Urine 0-1/HPF (0-5/HPF); WBC Urine 5-10/HPF (0-5/HPF)
[2021-01-12 16:08] LABS: Culture Indicated Urine Specimen Cultured; Other Crystals Urine 1+ Amorphous
[2021-01-12] MEDS: CIPROFLOXACIN 250 MG TABLET 500 MG PO ×2 (18:36→20:31)
[2021-01-12 19:46] VITALS: BP 111/64; PULSE 85; O2SAT 95
[2021-01-12] MEDS: ATORVASTATIN 20 MG TABLET PO (20:31)
[2021-01-12] MEDS: OXYBUTYNIN 5 MG TABLET PO (20:31)
[2021-01-12] MEDS: ALPRAZolam 0.25 MG TABLET PO (21:09)
[2021-01-13] VITALS (7 sets, daily range): BP systolic 110–128; BP diastolic 68–70; PULSE 76–81; RESP 18; O2SAT 95–99
[2021-01-13] MEDS: ASPIRIN EC 81 MG TABLET PO (07:46)
[2021-01-13] MEDS: CIPROFLOXACIN 250 MG TABLET 500 MG PO ×2 (07:46→19:28)
[2021-01-13] MEDS: OXYBUTYNIN 5 MG TABLET PO ×2 (07:47→19:28)
[2021-01-13] MEDS: GABAPENTIN 100 MG CAPSULE PO ×3 (07:47→19:28)
[2021-01-13] MEDS: lisinopriL 10 MG TABLET PO (07:48)
[2021-01-13] MEDS: CARBIDOPA-LEVODOPA 25/100 TABLET 1 EACH PO ×3 (07:52→19:29)
--- NOTE | 2021-01-13 14:09 | CM.DPNOTE ---
Henry Leiva, faxed referral packet to [facility], [facility], and [facility] and received fax confirm. Carlota Crowell CM Asst.
--- NOTE | 2021-01-13 14:36 | PT.IIE ---
Medical History (Last Reviewed 01/12/21 @ 16:49 by Husam Daigle PA-C) Gait instability HLD (hyperlipidemia) HTN (hypertension) Lumbar radiculopathy Right foot drop Physical Therapy Inpatient Evaluation/Re-Eval M1 PT/OT-IP Prior Functional Status Start: 01/13/21 16:05 Freq: Status: Active Protocol: Document 01/13/21 14:36 AB (Rec: 01/13/21 16:26 AB [email or web address]) Medical Review Prior Functional Status Medical History Reviewed Yes Communication able to make needs known Mobility and Gait pt stated that she is not ambulating much and usually uses her electric scooter to move around but able to squat pivot to transfer bed<>scooter . Prior Functional Level (Other details) pt with h/o back surgery last September 05, 2020. Prior to back surgery, pt lives at [facility] and was bed bound in there and require a marlene lift for transfers. During hospitalization for back surgery, pt was needing 2 person max A for transfers. Pt d/c to SNF afterwards and pt stated that she is walking some at SNF using FWW but most of the time on a manual w/c for mobility. Pt stated that she thought she can take care of herself and went AMA and has been living in a motel. Per EMR, motel kicked pt out due to pt unable to care for herself. Social History Household Members other Number of Stairs To Enter/Railing? Homeless at this time Home Equipment Power Wheelchair/Scooter M2 PT-IP Current Condition Start: 01/13/21 16:05 Freq: Status: Active Protocol: Document 01/13/21 14:36 AB (Rec: 01/13/21 16:26 AB [email or web address]) Physical Therapy Current Condition Current Condition Evaluation Date 01/13/21 Treatment Diagnosis generalized weakness; difficulty in ambulation Onset Date 01/12/21 M3 PT-IP Subjective Start: 01/13/21 16:05 Freq: Status: Active Protocol: Document 01/13/21 14:36 AB (Rec: 01/13/21 16:26 AB [email or web address]) Subjective Physical Therapy Visit Type Type Initial Evaluation Visit Start Time 14:36 Visit Stop Time 15:08 Total Visit Minutes 32 Number of ASSEMBLER FISHING FLOATS Visits 0 Physical Therapy Visit Comments Patient Comments pt stated that she is having a panic attack. when ask, she said it is because, she has been in the hospital for 1 1/2 days and she cannot access her laptop. Initially stated that she will not do anything until she gets her laptop that is currently in the motel. Talked to pt and informed pt regarding PT and importance of PT assessment to determine mobility and how it will affect placement to a facility. pt then agreed to do PT. M4 PT-IP Mobility and Gait Start: 01/13/21 16:05 Freq: Status: Active Protocol: Document 01/13/21 14:36 AB (Rec: 01/13/21 16:26 AB [id number]) PT-Bed Mobility Assessment Supine to Sit Supine to Sit Maximum Assistance Sit to Supine Sit to Supine Maximum Assistance PT-Transfer Assessment Sit to and From Stand Sit to and from Stand Maximum Assistance,1 Person Assistance,Use of Upper Extremities Equipment Transfer Assistive Device Gait Belt,Front Wheeled Walker Orthotic/Prosthetic Devices or Brace: No Comments Mobility Comments pt stated that her back is totally healed and does not need to do her back precautions. informed pt to still be caustious but pt directs her own care. completed supine to sit max A and max cues. has RLE weakness, rigidity and foot drop. able to sit on EOB CGA. completed sit to stand max A and max cues and ambulated in room using FWW max A ~ 15 ft. increase unsteadiness towards end of ambulation. presents with decrease step width with RLE tending to cross midline. cued to increase JOSÉ MIGUEL. (+) RLE foot drop. pt completed sit to supine max A and max cues. max A for LE elevation. assisted with positioning in bed. call light and table placed within reach. Gait Assessment Gait Gait Assistance Required: Maximum Assistance Distance (Feet) 15 Able to Maintain Weight Bearing Status Yes During Gait Assistive Devices Assistive Device Gait Belt,Front Wheeled Walker Orthotic/Prosthetic Devices or Brace: No Gait Deviations General Gait Pattern Antalgic,Decreased Stride Length,Decreased Feet Clearance,Step-to Gait Factors Limiting Gait Function Factors Limiting Gait Function Decreased Activity Tolerance, Decreased Strength,Limited Range of Motion,Poor Balance, Poor Safety Awareness PT-Balance Assessment Sitting Balance and Reactions Static Sitting Balance Ability Good Dynamic Sitting Balance Ability Fair Standing Balance and Reactions Static Standing Balance Ability Poor Dynamic Standing Balance Ability Poor Device Used FWW M5 PT-IP Objective Assessments Start: 01/13/21 16:05 Freq: Status: Active Protocol: Document 01/13/21 14:36 AB (Rec: 01/13/21 16:26 AB [id number]) Orientation Orientation/Cognition Level of Alertness Alert Orientation Name,Place,Situation Language Function Ability No Deficits Noted Safety Awareness Decreased Safety Awareness Memory Description Short Term Impaired Gross Range of Motion Lower Extremity ROM Assessment Within Functional Limits Impairments bilateral ankle DF tightness Strength Lower Extremity Strength Assessment Right Impaired Hip 3+/5 Knee 3-/5 Ankle 1/5 Muscle Tone Muscle Tone WNL Yes M6 PT-IP Treatment Start: 01/13/21 16:05 Freq: Status: Active Protocol: Document 01/13/21 14:36 AB (Rec: 01/13/21 16:26 AB [id number]) Physical Therapy Treatment Education Education Provided Safety M7 PT-IP Assessment and Plan Start: 01/13/21 16:05 Freq: Status: Active Protocol: Document 01/13/21 14:36 AB (Rec: 01/13/21 16:26 AB [email or web address]) PT Summary Assessment and Plan Potential Rehabilitation Potential Fair Status of Condition at Evaluation Stable Summary Impairments Pain,ROM,Strength,Balance, Coordination,Sensation,Tone, Cognition,Bed Mobility, Transfers,Gait,Activity Tolerance Assessment Summary PT eval order received from ER . Pt is currently homeless and got kicked out from the motel due to pt unable to take care of herself. PT assessment completed and pt is requiring max A and max cues with all tasks. Pt needs SNF rehab to improve mobility and eventually will need LTC placement. Goals Bed Mobility Goal Contact Guard Assistance Transfer Goal Contact Guard Assistance,Front Wheeled Walker Gait Goal Contact Guard Assistance,Front Wheel Walker Gait Distance 50 Days to Meet Goals 10 Frequency of Treatment Frequency Of Treatment Once a Day Treatment Plan Physical Therapy Treatment Plan Bed Mobility Training,Transfer Training,Gait Training, Therapeutic Exercise,Balance Retraining,Discharge Planning, Hot or Cold Pack,Neuromuscular Re-ed,Coordination Retraining ,Manual Therapy Recommendations To Nursing Amount of Assist Needed 1 Person Assist Discharge Recommendations PT Discharge Recommendations SNF Rehab Transportation Needs at Discharge Wheelchair/Cabulance
[2021-01-13] MEDS: ALPRAZolam 0.25 MG TABLET PO (19:28)
[2021-01-13] MEDS: ATORVASTATIN 20 MG TABLET PO (19:29)
[2021-01-14] VITALS (7 sets, daily range): BP systolic 124–161; BP diastolic 62–87; PULSE 67–84; RESP 15–20; O2SAT 93–96
[2021-01-14] MEDS: ASPIRIN EC 81 MG TABLET PO (07:45)
[2021-01-14] MEDS: CIPROFLOXACIN 250 MG TABLET 500 MG PO ×2 (07:45→18:32)
[2021-01-14] MEDS: OXYBUTYNIN 5 MG TABLET PO ×2 (07:46→18:31)
[2021-01-14] MEDS: GABAPENTIN 100 MG CAPSULE PO ×3 (07:46→20:01)
[2021-01-14] MEDS: CARBIDOPA-LEVODOPA 25/100 TABLET 1 EACH PO ×3 (07:47→17:02)
--- NOTE | 2021-01-14 13:53 | CM.SWNOTE ---
CONDENSER TESTER Note CONDENSER TESTER enters room and meets with patient who is present with her friend Seda. Seda is assisting patient in coordinating moving patient belongings from the motel room to a storage unit. After consulting with ED provider Dr. Acosta, patient can no longer board in this ED. The following options include d/c to community with outpatient services in place such as and community plug sorter outreach, SNF rehab acceptance or a social admission to acute care. CONDENSER TESTER discusses that there is no acceptance to a SNF at this time and reviews the above with patient. CONDENSER TESTER to continue to consult with care management team, [facility], [facility], and [facility] case management, and continue to seek out SNF rehab bed for patient. CONDENSER TESTER speaks with [facility] Care Coordination worker Mingo who indicates he will communicate with [employer] for assistance (Ph. # [phone]) CONDENSER TESTER calls APS SW and leaves with update and requesting return call. CONDENSER TESTER speaks with [facility] block and case maker Jessica Marcos (Ph. # [phone]) who is trying to identify who patient's [facility] block and case maker is. CONDENSER TESTER reviews current situation and Jessica endorses she will review this with cdl program coordinator. CONDENSER TESTER broadens the search from [facility] and [facility] due to no SNF rehab availability or acceptance. CONDENSER TESTER calls [facility] SNF, and there is no answer. CONDENSER TESTER calls [facility] and it is reported that they do not have SNF rehab beds. [facility] SNFs: CONDENSER TESTER calls Rama at [facility] in [place], it is reported that they have beds, CONDENSER TESTER faxes for review (Ph. # [phone]) CONDENSER TESTER calls Rama at [facility] in [place] and there is no answer. CONDENSER TESTER calls Rama At [facility] in [place] and leaves requesting return call. CONDENSER TESTER calls [facility] SNF and leaves VM requesting return call and faxes clinical packet to referral line. (Ph. # [phone]) CONDENSER TESTER calls [facility] [facility] SNF and leaves message requesting return call. CONDENSER TESTER calls [facility] in [place] and it is reported that there are no SNF rehab beds at this time. CONDENSER TESTER calls [facility] in [place], and leaves VM requesting return call. CONDENSER TESTER calls [facility] SNF and leaves requesting return call. [facility] (Ph. # [phone]). It is reported that they are almost at capacity but can review patient. CONDENSER TESTER faxes referral packet. CONDENSER TESTER calls [facility] SNF and [facility] SNF and there is no answer or option to leave . CONDENSER TESTER calls [facility] (Ph. # [phone]) and it is reported that they can review patient. CONDENSER TESTER faxes referral packet for review. Plan: CONDENSER TESTER to f/u with plan of care and continue to seek SNF rehab bed. VANESA Brian
--- NOTE | 2021-01-14 17:07 | PT.IPTN ---
Physical Therapy Treatment Note M2 PT-IP Current Condition Start: 01/13/21 16:05 Freq: Status: Active Protocol: Document 01/14/21 16:46 SP (Rec: 01/14/21 17:42 SP [id number]) Physical Therapy Current Condition Current Condition Evaluation Date 01/13/21 Treatment Diagnosis generalized weakness; difficulty in ambulation Onset Date 01/12/21 M3 PT-IP Subjective Start: 01/13/21 16:05 Freq: Status: Active Protocol: Document 01/14/21 16:46 SP (Rec: 01/14/21 17:42 SP [id number]) Subjective Physical Therapy Visit Type Type Treatment Note Visit Start Time 16:46 Visit Stop Time 17:07 Total Visit Minutes 21 Notes Attempted tx at 1503 but pt refused requesting sopository first. Agreeable to WEB CONSULTANT return . Number of WEB CONSULTANT Visits 1 Physical Therapy Visit Comments Patient Comments Pt agreeable to working with therapy up to BSC to attempt BM. Pt states still waiting on suppository, nurse reported waiting on signed order from physician. Patient Goals Complete a BM. Therapy Pain Assessment Location legs/feet Intensity 5 Scale Used Numeric (0 - 10) Description Chronic Pain Management Techniques Distraction,Modification of Treatment,Re-positioning, Timing of Activity with Medications M4 PT-IP Mobility and Gait Start: 01/13/21 16:05 Freq: Status: Active Protocol: Document 01/14/21 16:46 SP (Rec: 01/14/21 17:42 SP [id number]) PT-Bed Mobility Assessment Supine to Sit Supine to Sit Moderate Assistance,1 Person Assistance,Head of Bed Elevated,Bedrails Sit to Supine Sit to Supine Moderate Assistance,1 Person Assistance,Bedrails Scooting Scooting to Edge of Bed Moderate Assistance Scooting Up and Down in Bed Maximum Assistance PT-Transfer Assessment Sit to and From Stand Sit to and from Stand Maximum Assistance,1 Person Assistance,Use of Upper Extremities Equipment Transfer Assistive Device Gait Belt,Front Wheeled Walker Orthotic/Prosthetic Devices or Brace: No Transfers Transfer Destination Bed,Bedside Commode Transfer Technique Squat Pivot Transfer Ability Level of Assist Maximum Assistance,1 Person Assistance,Use of Upper Extremities Comments Mobility Comments Pt seen in ER. Supine>sit Mod A x1 for trunk righting and contact 10% A for R>L LE repositioning to sit, Mod A to scoot to EOB with self use of bed rail. Squat pivot to BSC, cued for reaching across to opp arm rest, Max A for trunk support and cues for LE repositioning. Pt able to stand using BSC arms to allow WEB CONSULTANT to remove brief, Mod A for scooting back on commode. WEB CONSULTANT managed catheter throughout tx. Pt unsuccessful BM production, provided education on self 1 CCW then repeated CW STMs around navel for bowel movement assist. Nurse provided brief and FWW. Pt able to sit>stand Mod A x1 with cues for upright posture, WEB CONSULTANT assisted brief mgt due to requiring BUE WB support onfWW. SPT to L back to EOB approx 2 ft, cues for sequencing BLE/ fWW back fully then reaching back, Mod A for slow descent to bed. SIt> supine Mod A for BLE into bed, Max A for scooting up in bed with cues for LLE wB on bed and BUE pull from bed rail OH ableto complete Max A x1. WEB CONSULTANT placed pillow and rolled towel under BLEs. Had call light and all need in reach with bed alarmed for safety before left. WEB CONSULTANT notified nursing of update on mobility. Gait Assessment Gait Gait Assistance Required: Maximum Assistance Distance (Feet) 2 Able to Maintain Weight Bearing Status Yes During Gait Assistive Devices Assistive Device Gait Belt,Front Wheeled Walker Orthotic/Prosthetic Devices or Brace: No Gait Deviations General Gait Pattern Antalgic,Decreased Stride Length,Decreased Feet Clearance,Flexed Trunk,Narrow Based Gait,Step-to Gait Factors Limiting Gait Function Factors Limiting Gait Function Decreased Activity Tolerance, Decreased Strength,Limited Range of Motion,Poor Balance, Poor Safety Awareness Comments Gait Comments see mobility comments PT-Balance Assessment Sitting Balance and Reactions Static Sitting Balance Ability Good Dynamic Sitting Balance Ability Fair Standing Balance and Reactions Static Standing Balance Ability Poor Dynamic Standing Balance Ability Poor Device Used FWW M5 PT-IP Objective Assessments Start: 01/13/21 16:05 Freq: Status: Active Protocol: Document 01/13/21 14:36 AB (Rec: 01/13/21 16:26 AB [id number]) Orientation Orientation/Cognition Level of Alertness Alert Orientation Name,Place,Situation Language Function Ability No Deficits Noted Safety Awareness Decreased Safety Awareness Memory Description Short Term Impaired Gross Range of Motion Lower Extremity ROM Assessment Within Functional Limits Impairments bilateral ankle DF tightness Strength Lower Extremity Strength Assessment Right Impaired Hip 3+/5 Knee 3-/5 Ankle 1/5 Muscle Tone Muscle Tone WNL Yes M6 PT-IP Treatment Start: 01/13/21 16:05 Freq: Status: Active Protocol: Document 01/14/21 16:46 SP (Rec: 01/14/21 17:42 SP [id number]) Physical Therapy Treatment Exercises Exercises Ankle Pumps,Heel Slides Knee ROM Measurement approx: L knee 70 deg, R knee 30 deg flexion AROM Education Education Provided Safety M7 PT-IP Assessment and Plan Start: 01/13/21 16:05 Freq: Status: Active Protocol: Document 01/14/21 16:46 SP (Rec: 01/14/21 17:42 SP [id number]) PT Summary Assessment and Plan Potential Rehabilitation Potential Fair Status of Condition at Evaluation Stable Summary Impairments Pain,ROM,Strength,Balance, Coordination,Sensation,Tone, Cognition,Bed Mobility, Transfers,Gait,Activity Tolerance Progress Towards Goals Slow Progress due to Activity Tolerance,Slow Progress - Other Assessment Summary Pt seen in ER. Pt likes to direct own care, mobilizes with encouragement, requires Mod A for bed mob, Max A x1 for squat pivot or SPT transfers using FWW. Pt needs SNF rehab to improve mobility and eventually will need LTC placement. Goals Bed Mobility Goal Contact Guard Assistance Transfer Goal Contact Guard Assistance,Front Wheeled Walker Gait Goal Contact Guard Assistance,Front Wheel Walker Gait Distance 50 Days to Meet Goals 10 Frequency of Treatment Frequency Of Treatment Once a Day Treatment Plan Physical Therapy Treatment Plan Bed Mobility Training,Transfer Training,Gait Training, Therapeutic Exercise,Balance Retraining,Discharge Planning, Hot or Cold Pack,Neuromuscular Re-ed,Coordination Retraining ,Manual Therapy Other Recommendations and Next Treatment bed mob, transfers, gait if Focus able using FWW. Recommendations To Nursing Amount of Assist Needed 1 Person Assist Discharge Recommendations PT Discharge Recommendations SNF Rehab Transportation Needs at Discharge Wheelchair/Cabulance
[2021-01-14] MEDS: ATORVASTATIN 20 MG TABLET PO (20:01)
[2021-01-14] MEDS: ALPRAZolam 0.25 MG TABLET PO (20:01)
[2021-01-15 06:32] VITALS: BP 142/78; PULSE 71; O2SAT 95
[2021-01-15 06:34] VITALS: BP 142/98; PULSE 75; RESP 15; O2SAT 95
[2021-01-15] MEDS: GABAPENTIN 100 MG CAPSULE PO ×3 (07:03→20:54)
[2021-01-15] MEDS: CIPROFLOXACIN 250 MG TABLET 500 MG PO ×2 (07:04→20:53)
[2021-01-15] MEDS: CARBIDOPA-LEVODOPA 25/100 TABLET 1 EACH PO ×3 (07:04→16:04)
[2021-01-15] MEDS: OXYBUTYNIN 5 MG TABLET PO (07:04)
[2021-01-15] MEDS: ASPIRIN EC 81 MG TABLET PO (07:04)
[2021-01-15] MEDS: lisinopriL 10 MG TABLET PO (07:04)
--- NOTE | 2021-01-15 08:19 | PC.NURSE ---
Patient ate entire breakfast. Requesting to speak to social service coordinator, updated patient on plan for social work consult. Patient requesting a strong laxative as she states she has not had a BM in four days. However patient reports she was unable to care for herself at hotel and was incontinent of stool in bed which was part of the reason she no longer could stay at hotel. Provider aware of patients request.
[2021-01-15] MEDS: DOCUSATE 100 MG CAPSULE PO (09:28)
--- NOTE | 2021-01-15 10:23 | PT.IPTN ---
Physical Therapy Treatment Note M2 PT-IP Current Condition Start: 01/13/21 16:05 Freq: Status: Active Protocol: Document 01/14/21 16:46 SP (Rec: 01/14/21 17:42 SP [id number]) Physical Therapy Current Condition Current Condition Evaluation Date 01/13/21 Treatment Diagnosis generalized weakness; difficulty in ambulation Onset Date 01/12/21 M3 PT-IP Subjective Start: 01/13/21 16:05 Freq: Status: Active Protocol: Document 01/15/21 10:10 ER (Rec: 01/15/21 12:13 ER [email or web address]) Subjective Physical Therapy Visit Type Type Treatment Note Visit Start Time 10:10 Visit Stop Time 10:23 Total Visit Minutes 13 Notes ORALIA Flores attended treatment and assisted under the direct supervision and instruction of SUPERVISOR TUBING Lachelle as needed. Number of SUPERVISOR TUBING Visits 2 Physical Therapy Visit Comments Patient Comments Pt. agreeable to working with therapy. Therapy Pain Assessment Pain When Pain Assessed At Rest Pain Present Pain Present Pain Reported Location legs/feet Intensity 5 Scale Used Numeric (0 - 10) Description Chronic Pain Management Techniques Distraction,Modification of Treatment,Re-positioning, Timing of Activity with Medications M4 PT-IP Mobility and Gait Start: 01/13/21 16:05 Freq: Status: Active Protocol: Document 01/15/21 10:10 ER (Rec: 01/15/21 12:13 ER [id number]) PT-Bed Mobility Assessment Supine to Sit Supine to Sit Contact Guard Assistance,1 Person Assistance,Head of Bed Elevated,Bedrails Sit to Supine Sit to Supine Moderate Assistance,1 Person Assistance,Bedrails Scooting Scooting to Edge of Bed Contact Guard Assistance Scooting Up and Down in Bed Contact Guard Assistance PT-Transfer Assessment Sit to and From Stand Sit to and from Stand Minimal Assistance,1 Person Assistance,Use of Upper Extremities Equipment Transfer Assistive Device Gait Belt,Front Wheeled Walker Orthotic/Prosthetic Devices or Brace: No Transfers Transfer Destination Bed,Wheelchair Transfer Technique Stand Pivot Transfer Ability Level of Assist Minimal Assistance,Moderate Assistance,1 Person Assistance ,Use of Upper Extremities Comments Mobility Comments Pt. seen in ER. Supine>sit CGA and use of bedrain. Sit>stand using FWW with UE support, Kristi+1, and use of bedrail. Standing pivot to WC using FWW , Kristi+1. Stand>sit using FWW, Kristi+1 for slow descent, and cues for bringing legs back to edge of WC and reaching back to WC. Sit>stand using FWW and Kristi+1. Pt. ambulated around bed and back (20') using FWW and Min>Mod+1, and SPTA following with WC. Pt. required increased assistance returning to bed for weight shifting. Pt. stand>sit using FWW and Kristi+1. Pt. required ModA+1 to return to supine for lifiting LE into bed, side scooting, and shifting torso to bring her into midline of bed. Pt. requested emptying of catheter bag. Informed nursing of same. Pt. left in bed with call light and all needs within reach. Gait Assessment Gait Gait Assistance Required: Minimum Assistance,Moderate Assistance Distance (Feet) 20 Able to Maintain Weight Bearing Status Yes During Gait Assistive Devices Assistive Device Gait Belt,Front Wheeled Walker Orthotic/Prosthetic Devices or Brace: No Gait Deviations General Gait Pattern Antalgic,Decreased Stride Length,Decreased Feet Clearance,Flexed Trunk,Narrow Based Gait,Step-to Gait Factors Limiting Gait Function Factors Limiting Gait Function Decreased Activity Tolerance, Decreased Strength,Limited Range of Motion,Poor Balance, Poor Safety Awareness M5 PT-IP Objective Assessments Start: 01/13/21 16:05 Freq: Status: Active Protocol: Document 01/13/21 14:36 AB (Rec: 01/13/21 16:26 AB [id number]) Orientation Orientation/Cognition Level of Alertness Alert Orientation Name,Place,Situation Language Function Ability No Deficits Noted Safety Awareness Decreased Safety Awareness Memory Description Short Term Impaired Gross Range of Motion Lower Extremity ROM Assessment Within Functional Limits Impairments bilateral ankle DF tightness Strength Lower Extremity Strength Assessment Right Impaired Hip 3+/5 Knee 3-/5 Ankle 1/5 Muscle Tone Muscle Tone WNL Yes M6 PT-IP Treatment Start: 01/13/21 16:05 Freq: Status: Active Protocol: Document 01/14/21 16:46 SP (Rec: 01/14/21 17:42 SP [id number]) Physical Therapy Treatment Exercises Exercises Ankle Pumps,Heel Slides Knee ROM Measurement approx: L knee 70 deg, R knee 30 deg flexion AROM Education Education Provided Safety M7 PT-IP Assessment and Plan Start: 01/13/21 16:05 Freq: Status: Active Protocol: Document 01/15/21 10:10 ER (Rec: 01/15/21 13:42 ER [email or web address]) PT Summary Assessment and Plan Potential Rehabilitation Potential Fair Status of Condition at Evaluation Stable Summary Impairments Pain,ROM,Strength,Balance, Coordination,Sensation,Tone, Cognition,Bed Mobility, Transfers,Gait,Activity Tolerance Progress Towards Goals Slow Progress due to Activity Tolerance,Slow Progress - Other Assessment Summary Pt seen in ER. Pt. performed bed mobility with CGA out of bed, but Kristi+1 to get into bed for leg clearance and side scooting to midline positioning in bed. Pt. ambulated using FWW, CGA increasing to ModA for weight shifting as pt fatigued. Goals Bed Mobility Goal Contact Guard Assistance Transfer Goal Contact Guard Assistance,Front Wheeled Walker Gait Goal Contact Guard Assistance,Front Wheel Walker Gait Distance 50 Days to Meet Goals 10 Frequency of Treatment Frequency Of Treatment Once a Day Treatment Plan Physical Therapy Treatment Plan Bed Mobility Training,Transfer Training,Gait Training, Therapeutic Exercise,Balance Retraining,Discharge Planning, Hot or Cold Pack,Neuromuscular Re-ed,Coordination Retraining ,Manual Therapy Other Recommendations and Next Treatment Bed mobs, transfers, Focus ambulation with FWW. Pt will benefit from continued PT to increase strength and functional mobility. Precautions Lumbar Precautions Log Roll,No Twisting,Limit Bending,Lifting Restriction of 10 lbs,Gait Belt above Incisional Area Recommendations To Nursing Amount of Assist Needed 1 Person Assist Discharge Recommendations PT Discharge Recommendations SNF Rehab Transportation Needs at Discharge Wheelchair/Cabulance
[2021-01-15 11:50] VITALS: BMI 32.5
[2021-01-15 12:38] VITALS: BMI 32.5
--- NOTE | 2021-01-15 13:46 | CM.SWNOTE ---
PERISHABLE FREIGHT INSPECTOR/DCP Note PERISHABLE FREIGHT INSPECTOR contacts [facility] case resolution specialist and APS SW via email informing them of patient's recent admission to the hospital and requesting [facility] case resolution specialistaffiliate manager and formal assignment of [facility] case resolution specialist. PERISHABLE FREIGHT INSPECTOR attempts to call Georgia Hernandez but her voicemail message endorses that she will be out of the office today and tomorrow of this week. PERISHABLE FREIGHT INSPECTOR calls Rama at [facility] in [place] (Ph. # [phone]) for f/u and leaves requesting return call to DCP. PERISHABLE FREIGHT INSPECTOR [facility] (Ph. # [phone]) and leaves requesting f/u and return call to DCP. PERISHABLE FREIGHT INSPECTOR calls [facility] (Ph. # [phone]), it is reported that they are still reviewing patient. PERISHABLE FREIGHT INSPECTOR provides DCP phone number for f/u. Plan: DCP to f/u with POC for patient, pending ongoing PT evaluations continue to seek SNF rehab for patient. VANESA Brian
[2021-01-15 15:07] VITALS: BP 136/66; PULSE 69; RESP 16; TEMP 36.3; O2SAT 95
--- NOTE | 2021-01-15 15:18 | P.HP_ITS ---
History of Present Illness History of Present Illness Date Patient Seen: 01/15/21 Time Patient Seen: 15:19 Chief complaint: Need Social Work Narrative: This is a 80-year-old female with a past medical history of CAD, hypertension, hyperlipidemia, Parkinson's, recent spinal surgery he was discharged to long-term facility a few months ago. She had been there since but left after she felt that she was not getting enough physical therapy. She instead went to a hotel, where she was apparently kicked out due to the room's condition. She has been in the ER pending placement for a long-term facility since January 12. No facility has currently be found and she is currently pending placement. She is admitted at this time under observation status to continue looking for placement possibilities. She has been seen by Physical therapy and recommended for long-term facility. Her course in the emergency room has been unremarkable. She did not have any acute findings and there was no infectious etiologies. Patient History Medical History Gait instability HLD (hyperlipidemia) HTN (hypertension) Lumbar radiculopathy Right foot drop Surgical History H/O heart bypass surgery H/O lumbosacral spine surgery Family & Social History Family History Father Heart disease, congenital Mother Congestive heart failure Social History: household members none Prior Living Arrangements Homeless Safety & Behavioral: Feels Safe in Current No Environment Been Physically Hurt or No Threatened By a Person Suicidal Ideation Description None Suicide Plan Description No Plan Tobacco & Substance use: Smoking Status Never smoker alcohol intake never alcohol intake frequency 0-2 drinks per day Substance Use Type opiates Meds Home Medications and Allergies Home Medications Medication Instructions Recorded Confirmed Type albuterol sulfate 90 mcg/actuation 1 - 2 puff INHALATION DIRECTED 07/16/20 01/12/21 History aerosol inhaler PRN lisinopril 10 mg tablet 10 mg PO DAILY 07/16/20 01/12/21 History hydroxyzine pamoate 25 mg capsule 25 mg PO Q4HR PRN #30 cap 09/08/20 01/12/21 Rx acetaminophen 325 mg tablet 650 mg PO Q4H PRN 01/12/21 01/12/21 History aspirin 81 mg capsule 81 mg PO DAILY 01/12/21 01/12/21 History atorvastatin 20 mg tablet 20 mg PO BEDTIME 01/12/21 01/12/21 History carbidopa 25 mg-levodopa 100 mg 1 tab PO TID 01/12/21 01/12/21 History tablet gabapentin 100 mg capsule 100 mg PO TID 01/12/21 01/12/21 History oxybutynin chloride 5 mg tablet 5 mg PO BID 01/12/21 01/12/21 History Allergies Allergy/AdvReac Type Severity Reaction Status Date / Time No Known Drug Allergies Allergy Verified 07/10/20 11:19 Review of Systems Review of Systems Narrative: All other systems reviewed with the patient and are negative unless otherwise stated. Exam Vital Signs (past 8 hours): - 01/15/21 15:07 Temperature 97.4 F L Pulse Rate 69 Respiratory Rate 16 Blood Pressure 136/66 Pulse Oximetry 95 Oxygen Delivery Method Room Air Oxygen Flow Rate 0 Narrative Exam Narrative: GENERAL APPEARANCE: Well developed, well nourished, in no acute distress. SKIN: Inspection of the skin reveals no rashes, ulcerations or petechiae. HEENT: Normocephalic atraumatic, extraocular muscles are intact, oropharynx is clear and mucous membranes are moist, neck is supple without adenopathy NECK: Supple and symmetric. There was no thyroid enlargement, and no tenderness, or masses were felt. CHEST: Normal AP diameter and normal contour without any kyphoscoliosis. LUNGS: Auscultation of the lungs revealed no wheezes, rhonchi, or rales. CARDIOVASCULAR: There was a regular rate and rhythm without any murmurs, gallops, rubs. Peripheral pulses were 2+ and symmetric. ABDOMEN: Soft and nontender with normal bowel sounds. No ascites was noted. MUSCULOSKELETAL: There was no tenderness or effusions noted. Muscle strength and tone were normal. EXTREMITIES: No cyanosis, clubbing. trace edema bilaterally. NEUROLOGIC: Alert and oriented x 3. no focal deficits. Objective Labs Result Diagrams: 01/12/21 11:10 01/12/21 11:10 Assessment & Plan Assessment & Plan narrative: 1. failure to thrive - continue PT/OT, care management to continue working on placement options. - no acute or infectious causes. - discontinue verma 2. Parkinson's disease - continue home sinemet. 3. CAD,HTN,HLD - continue home medications. 4. Spinal stenosis -s/p recent spinal surgery here 09/2020 - continue home pain medications. Code: DNR, surrogate is designated to be her brother. Dispo: Admit obs, medically stable for return to SNF. Continue PT/OT I have utilized all available immediate resources to obtain, update, or review the patient's current medications. COVID-19 COVID-19 status: Negative Time Spent With Patient Critical Care time: I spent a total of [] minutes of critical care time on this patient's care today; this time is exclusive of procedural time. Quality VTE Deep Vein Thrombosis/Pulmonary Embolism Present on Admission: No MIPS - Admit I confirm the patient?s Advance Care Plan is present, Code status is documented, Surrogate decision maker is in patient?s record [If Yes, STOP here]: Yes
[2021-01-15] MEDS: ACETAMINOPHEN 325 MG TABLET 650 MG PO ×2 (15:59→20:53)
--- NOTE | 2021-01-15 17:32 | PC.NURSE ---
Pt arrived from ED alert/oriented. Pt SpO2 95% RA Pt assisted to BR w/2PA w/walker/gait belt. Pt did well. Dupree cath patent light gumaro urine Oriented to room & call system. Call light w/in reach, bed alarm on for pt safety. Continue w/plan of care.
[2021-01-15 20:47] VITALS: BP 104/65; PULSE 78; RESP 18; TEMP 36.4; O2SAT 93
[2021-01-15] MEDS: ATORVASTATIN 20 MG TABLET PO (20:54)
[2021-01-15] MEDS: ALPRAZolam 0.25 MG TABLET PO (20:54)
[2021-01-16 04:36] VITALS: BP 122/77; PULSE 73; RESP 14; TEMP 35.8; O2SAT 93
[2021-01-16] MEDS: CIPROFLOXACIN 250 MG TABLET 500 MG PO ×2 (06:53→18:00)
[2021-01-16 06:54] VITALS: BP 133/77; PULSE 72
[2021-01-16] MEDS: ASPIRIN EC 81 MG TABLET PO (06:54)
[2021-01-16] MEDS: OXYBUTYNIN 5 MG TABLET PO ×2 (06:54→18:00)
[2021-01-16] MEDS: lisinopriL 10 MG TABLET PO (06:54)
[2021-01-16] MEDS: CARBIDOPA-LEVODOPA 25/100 TABLET 1 EACH PO ×3 (06:54→16:15)
[2021-01-16] MEDS: GABAPENTIN 100 MG CAPSULE PO ×3 (06:54→21:45)
--- NOTE | 2021-01-16 08:08 | PT.IPTN ---
Physical Therapy Treatment Note M2 PT-IP Current Condition Start: 01/13/21 16:05 Freq: Status: Active Protocol: Document 01/14/21 16:46 SP (Rec: 01/14/21 17:42 SP [id number]) Physical Therapy Current Condition Current Condition Evaluation Date 01/13/21 Treatment Diagnosis generalized weakness; difficulty in ambulation Onset Date 01/12/21 M3 PT-IP Subjective Start: 01/13/21 16:05 Freq: Status: Active Protocol: Document 01/16/21 07:49 ER (Rec: 01/16/21 12:30 ER [email or web address]) Subjective Physical Therapy Visit Type Type Treatment Note Visit Start Time 07:49 Visit Stop Time 08:08 Total Visit Minutes 19 Notes ORALIA Flores lead treatment under the direct supervision and instruction of SABRINA Larose. Number of AGER OPERATOR Visits 3 Physical Therapy Visit Comments Patient Comments Pt. agreeable to working with therapy. Therapy Pain Assessment Pain When Pain Assessed At Rest Pain Present Pain Present Pain Reported Location legs/feet Intensity 3 Scale Used Numeric (0 - 10) Description Chronic Pain Management Techniques Distraction,Modification of Treatment,Re-positioning, Timing of Activity with Medications M4 PT-IP Mobility and Gait Start: 01/13/21 16:05 Freq: Status: Active Protocol: Document 01/16/21 07:49 ER (Rec: 01/16/21 12:30 ER [email or web address]) PT-Bed Mobility Assessment Supine to Sit Supine to Sit Contact Guard Assistance,1 Person Assistance,Head of Bed Elevated,Bedrails Scooting Scooting to Edge of Bed Contact Guard Assistance Scooting Up and Down in Bed Contact Guard Assistance PT-Transfer Assessment Sit to and From Stand Sit to and from Stand Minimal Assistance,1 Person Assistance,Use of Upper Extremities Equipment Transfer Assistive Device Gait Belt,Front Wheeled Walker Transfers Transfer Destination Chair Transfer Technique Stand Pivot Transfer Ability Level of Assist Minimal Assistance,Moderate Assistance,1 Person Assistance ,Use of Upper Extremities Comments Mobility Comments Pt. in elevated supine upon entry. Supine>sit CGA and use of bedrail. Scooting to EOB with UE support and CGA. Sit> stand using FWW with UE support, Ladonna+1, and use of bedrail. Sit>stand using FWW and Ladonna+1 plus cues to come to full standing and distribute weight evenly on LE . Pt. ambulated around bed, seated rest in chair Min A for sit control and cued UE, back (20') using FWW and Min>Mod+1 for efficient weight shifting , and AGER OPERATOR following with room chair. Pt. paused once due to fatigue, and had to sit down. Stand>sit and sit>stand with FWW, and UE support with Ladonna+ 1. Pt. stand>sit using FWW and Ladonna+1. Pt. left in chair with chair alarm on, call light and all needs within arms reach. Gait Assessment Gait Gait Assistance Required: Minimum Assistance,1 Person Assist Distance (Feet) 10 Able to Maintain Weight Bearing Status Yes During Gait Assistive Devices Assistive Device Gait Belt,Front Wheeled Walker Orthotic/Prosthetic Devices or Brace: No Gait Deviations General Gait Pattern Antalgic,Decreased Stride Length,Decreased Feet Clearance,Flexed Trunk,Narrow Based Gait,Step-to Gait Factors Limiting Gait Function Factors Limiting Gait Function Decreased Activity Tolerance, Decreased Strength,Limited Range of Motion,Poor Balance, Poor Safety Awareness Comments Gait Comments see mobility comments. PT-Balance Assessment Sitting Balance and Reactions Static Sitting Balance Ability Good Dynamic Sitting Balance Ability Fair Standing Balance and Reactions Static Standing Balance Ability Poor Dynamic Standing Balance Ability Poor Device Used FWW M5 PT-IP Objective Assessments Start: 01/13/21 16:05 Freq: Status: Active Protocol: Document 01/13/21 14:36 AB (Rec: 01/13/21 16:26 AB [id number]) Orientation Orientation/Cognition Level of Alertness Alert Orientation Name,Place,Situation Language Function Ability No Deficits Noted Safety Awareness Decreased Safety Awareness Memory Description Short Term Impaired Gross Range of Motion Lower Extremity ROM Assessment Within Functional Limits Impairments bilateral ankle DF tightness Strength Lower Extremity Strength Assessment Right Impaired Hip 3+/5 Knee 3-/5 Ankle 1/5 Muscle Tone Muscle Tone WNL Yes M6 PT-IP Treatment Start: 01/13/21 16:05 Freq: Status: Active Protocol: Document 01/16/21 07:49 ER (Rec: 01/16/21 12:30 ER [email or web address]) Physical Therapy Treatment Education Education Provided Safety M7 PT-IP Assessment and Plan Start: 01/13/21 16:05 Freq: Status: Active Protocol: Document 01/16/21 07:49 ER (Rec: 01/16/21 12:30 ER [email or web address]) PT Summary Assessment and Plan Potential Rehabilitation Potential Fair Status of Condition at Evaluation Stable Summary Impairments Pain,ROM,Strength,Balance, Coordination,Sensation,Tone, Cognition,Bed Mobility, Transfers,Gait,Activity Tolerance Progress Towards Goals Slow Progress due to Activity Tolerance,Slow Progress - Other Assessment Summary Pt. performed bed mobility CGA . Gait with FWW, and Ladonna+1 for weight shifting and safety . Pt. required seated rest break x1, and indicated that her legs felt weak and that she felt like she weightd a ton. Pt. fatigues easily and decreased ability to shift weight in gait efficiently and a shuffling stride. Pt. will benefit from continued PT to increase strength and functional mobility. AGER OPERATOR recommending SNF for continued strengthening and fuctional independence. Pt does not have family or home to go to at this time with requiring physical assist for self care and mobility at this time, more willing to mobility [facility]. Goals Bed Mobility Goal Contact Guard Assistance Transfer Goal Contact Guard Assistance,Front Wheeled Walker Gait Goal Contact Guard Assistance,Front Wheel Walker Gait Distance 50 Days to Meet Goals 10 Frequency of Treatment Frequency Of Treatment Once a Day Treatment Plan Physical Therapy Treatment Plan Bed Mobility Training,Transfer Training,Gait Training, Therapeutic Exercise,Balance Retraining,Discharge Planning, Hot or Cold Pack,Neuromuscular Re-ed,Coordination Retraining ,Manual Therapy Other Recommendations and Next Treatment Bed mobs, transfers, increased Focus distance in ambulation with FWW. Precautions Lumbar Precautions Log Roll,No Twisting,Limit Bending,Lifting Restriction of 10 lbs,Gait Belt above Incisional Area Recommendations To Nursing Amount of Assist Needed 1 Person Assist Discharge Recommendations PT Discharge Recommendations SNF Rehab Transportation Needs at Discharge Wheelchair/Cabulance
[2021-01-16 09:53] VITALS: BP 127/68; PULSE 89; RESP 18; TEMP 36.4; O2SAT 96
--- NOTE | 2021-01-16 10:50 | PM.PN.1 ---
Subjective Subjective Date Patient Seen: 01/16/21 Time Patient Seen: 10:50 Interval history: No complaints today. Exam Vital Signs (past 8 hours): - 01/16/21 04:36 01/16/21 06:54 01/16/21 09:53 Temperature 96.5 F L 97.6 F Pulse Rate 73 72 89 Respiratory Rate 14 18 Blood Pressure 122/77 133/77 127/68 Pulse Oximetry 93 96 Oxygen Delivery Method Room Air Oxygen Flow Rate 0 Narrative Exam Narrative: ?GENERAL APPEARANCE: Well developed, well nourished, in no acute distress. LUNGS: Auscultation of the lungs revealed no wheezes, rhonchi, or rales. CARDIOVASCULAR: There was a regular rate and rhythm without any murmurs, gallops, rubs. Peripheral pulses were 2+ and symmetric. ABDOMEN: S NT ND MUSCULOSKELETAL: There was no tenderness or effusions noted. EXTREMITIES: No cyanosis, clubbing. trace edema bilaterally. NEUROLOGIC: Alert and oriented x 3. no focal deficits. Objective Labs Result Diagrams: 01/12/21 11:10 01/12/21 11:10 [facility] Medical History Gait instability HLD (hyperlipidemia) HTN (hypertension) Lumbar radiculopathy Right foot drop Surgical History H/O heart bypass surgery H/O lumbosacral spine surgery Family History Father Heart disease, congenital Mother Congestive heart failure Social History household members: none Smoking Status: Never smoker alcohol intake: never Assessment & Plan Assessment & Plan narrative: 1. failure to thrive ?- continue PT/OT, care management to continue working on placement options. ?- no acute or infectious causes. ?- discontinue verma 2. Parkinson's disease ?- continue home sinemet. 3. CAD,HTN,HLD ?- continue home medications. 4. Spinal stenosis ?-s/p recent spinal surgery here 09/2020 ?- continue home pain medications. Code: DNR, surrogate is designated to be her brother. Dispo: Admit obs, medically stable for return to SNF. Unsafe to discharge home. Continue PT/OT I have utilized all available immediate resources to obtain, update, or review the patient's current medications. Time Spent With Patient Critical Care time: I spent a total of [] minutes of critical care time on this patient's care today; this time is exclusive of procedural time. Quality VTE Deep Vein Thrombosis/Pulmonary Embolism Present on Admission: No
--- NOTE | 2021-01-16 11:08 | PC.NURSE ---
Day shift: Pt refused removal of Dupree cath at this time. Explained to Pt that having it in increases risk of UTI. She said Leave it in. I already have a UTI. Dr Cooper informed and he said he would talk to Pt. Call light in reach. Bed alarm is on.
--- NOTE | 2021-01-16 12:30 | PT.IPTN ---
Physical Therapy Treatment Note M2 PT-IP Current Condition Start: 01/13/21 16:05 Freq: Status: Active Protocol: Document 01/14/21 16:46 SP (Rec: 01/14/21 17:42 SP [id number]) Physical Therapy Current Condition Current Condition Evaluation Date 01/13/21 Treatment Diagnosis generalized weakness; difficulty in ambulation Onset Date 01/12/21 M3 PT-IP Subjective Start: 01/13/21 16:05 Freq: Status: Active Protocol: Document 01/16/21 11:58 ER (Rec: 01/16/21 12:30 ER [email or web address]) Subjective Physical Therapy Visit Type Type Treatment Note Visit Start Time 07:49 Visit Stop Time 08:08 Total Visit Minutes 19 Notes ORALIA Flores lead treatment under the direct supervision and instruction of SABRINA Larose. Number of CODING QUALITY COORDINATOR Visits 3 Physical Therapy Visit Comments Patient Comments Pt. agreeable to working with therapy. Therapy Pain Assessment Pain When Pain Assessed At Rest Pain Present Pain Present Pain Reported Location legs/feet Intensity 3 Scale Used Numeric (0 - 10) Description Chronic Pain Management Techniques Distraction,Modification of Treatment,Re-positioning, Timing of Activity with Medications M4 PT-IP Mobility and Gait Start: 01/13/21 16:05 Freq: Status: Active Protocol: Document 01/16/21 11:58 ER (Rec: 01/16/21 12:30 ER [email or web address]) PT-Bed Mobility Assessment Supine to Sit Supine to Sit Contact Guard Assistance,1 Person Assistance,Head of Bed Elevated,Bedrails Scooting Scooting to Edge of Bed Contact Guard Assistance Scooting Up and Down in Bed Contact Guard Assistance PT-Transfer Assessment Sit to and From Stand Sit to and from Stand Minimal Assistance,1 Person Assistance,Use of Upper Extremities Equipment Transfer Assistive Device Gait Belt,Front Wheeled Walker Transfers Transfer Destination Chair Transfer Technique Stand Pivot Transfer Ability Level of Assist Minimal Assistance,Moderate Assistance,1 Person Assistance ,Use of Upper Extremities Comments Mobility Comments Pt. in elevated supine upon entry. Supine>sit CGA and use of bedrail. Scooting to EOB with UE support and CGA. Sit> stand using FWW with UE support, Ladonna+1, and use of bedrail. Sit>stand using FWW and Ladonna+1 plus cues to come to full standing and distribute weight evenly on LE . Pt. ambulated around bed, seated rest in chair Min A for sit control and cued UE, back (20') using FWW and Min>Mod+1 for efficient weight shifting , and CODING QUALITY COORDINATOR following with room chair. Pt. paused once due to fatigue, and had to sit down. Stand>sit and sit>stand with FWW, and UE support with Ladonna+ 1. Pt. stand>sit using FWW and Ladonna+1. Pt. left in chair with chair alarm on, call light and all needs within arms reach. Gait Assessment Gait Gait Assistance Required: Minimum Assistance,1 Person Assist Distance (Feet) 10 Able to Maintain Weight Bearing Status Yes During Gait Assistive Devices Assistive Device Gait Belt,Front Wheeled Walker Orthotic/Prosthetic Devices or Brace: No Gait Deviations General Gait Pattern Antalgic,Decreased Stride Length,Decreased Feet Clearance,Flexed Trunk,Narrow Based Gait,Step-to Gait Factors Limiting Gait Function Factors Limiting Gait Function Decreased Activity Tolerance, Decreased Strength,Limited Range of Motion,Poor Balance, Poor Safety Awareness Comments Gait Comments see mobility comments. PT-Balance Assessment Sitting Balance and Reactions Static Sitting Balance Ability Good Dynamic Sitting Balance Ability Fair Standing Balance and Reactions Static Standing Balance Ability Poor Dynamic Standing Balance Ability Poor Device Used FWW M5 PT-IP Objective Assessments Start: 01/13/21 16:05 Freq: Status: Active Protocol: Document 01/13/21 14:36 AB (Rec: 01/13/21 16:26 AB [id number]) Orientation Orientation/Cognition Level of Alertness Alert Orientation Name,Place,Situation Language Function Ability No Deficits Noted Safety Awareness Decreased Safety Awareness Memory Description Short Term Impaired Gross Range of Motion Lower Extremity ROM Assessment Within Functional Limits Impairments bilateral ankle DF tightness Strength Lower Extremity Strength Assessment Right Impaired Hip 3+/5 Knee 3-/5 Ankle 1/5 Muscle Tone Muscle Tone WNL Yes M6 PT-IP Treatment Start: 01/13/21 16:05 Freq: Status: Active Protocol: Document 01/16/21 11:58 ER (Rec: 01/16/21 12:30 ER [email or web address]) Physical Therapy Treatment Education Education Provided Safety M7 PT-IP Assessment and Plan Start: 01/13/21 16:05 Freq: Status: Active Protocol: Document 01/16/21 11:58 ER (Rec: 01/16/21 12:30 ER [email or web address]) PT Summary Assessment and Plan Potential Rehabilitation Potential Fair Status of Condition at Evaluation Stable Summary Impairments Pain,ROM,Strength,Balance, Coordination,Sensation,Tone, Cognition,Bed Mobility, Transfers,Gait,Activity Tolerance Progress Towards Goals Slow Progress due to Activity Tolerance,Slow Progress - Other Assessment Summary Pt. performed bed mobility CGA . Gait with FWW, and Ladonna+1 for weight shifting and safety . Pt. required seated rest break x1, and indicated that her legs felt weak and that she felt like she weightd a ton. Pt. fatigues easily and decreased ability to shift weight in gait efficiently and a shuffling stride. Pt. will benefit from continued PT to increase strength and functional mobility. CODING QUALITY COORDINATOR recommending SNF for continued strengthening and fuctional independence. Pt does not have family or home to go to at this time with requiring physical assist for self care and mobility at this time, more willing to mobility [facility] [place]. Goals Bed Mobility Goal Contact Guard Assistance Transfer Goal Contact Guard Assistance,Front Wheeled Walker Gait Goal Contact Guard Assistance,Front Wheel Walker Gait Distance 50 Days to Meet Goals 10 Frequency of Treatment Frequency Of Treatment Once a Day Treatment Plan Physical Therapy Treatment Plan Bed Mobility Training,Transfer Training,Gait Training, Therapeutic Exercise,Balance Retraining,Discharge Planning, Hot or Cold Pack,Neuromuscular Re-ed,Coordination Retraining ,Manual Therapy Other Recommendations and Next Treatment Bed mobs, transfers, increased Focus distance in ambulation with FWW. Precautions Lumbar Precautions Log Roll,No Twisting,Limit Bending,Lifting Restriction of 10 lbs,Gait Belt above Incisional Area Recommendations To Nursing Amount of Assist Needed 1 Person Assist Discharge Recommendations PT Discharge Recommendations SNF Rehab Transportation Needs at Discharge Wheelchair/Cabulance
--- NOTE | 2021-01-16 13:56 | CM.DANOTE ---
Addendum entered by Wilma Rick R.N. 01/16/21 14:54: Cm called [facility] in [place] since they accept Medicaid [id number] and was told they are not currently accepting new patients they are on a covid hold until Tuesday or Tuesday of next week but if patient here will look at them then. [facility] in [place] also is a medicaid facility called and M for them to call CM back. Wilma Rick RN Case Manger Original Note: DCP Assessment: Patient is a 80 y rold female who was admitted to the hospital for safe placement. Patient left [facility] a week ago and has been staying in a motel since then. Has recently been asked to leave her hotel room do to cleanliness issues. VANESA sadler has been working with this patient in the ED and has been trying to find placement through the ED. Patient was brought to the floor do to no safe DC plan in the ED. VANESA has been working with [facility] who was working on a plan to pay the $2600 back due amount needed for patient to go back to [facility] under Assisted living placement but when they applied or the coverage through [employer] they were denied. [facility] stated they are following but wont have much they will be able to do assist with placement at this time. CM called [facility] business case analyst Georgia Herndon Cell phone [phone] since she is working remotely currently. CM called her and she is on vacation until Tuesday01/19/2021. CM Left Voice message for her to call us back when she returns. ELINA called [facility] business case analyst Dorota Landrum [facility]- [phone] and [facility] for her to return CM call. CM called [facility] guest services coordinator [place] [phone] and [facility] to check in with him about DC planning. CM did receive a call back asking if they can do an assessment with the patient. ELINA stated they can meet with the patient and he plans on visiting her today. ELINA spoke with Rena at [facility]- she is still willing to accept the patient as an assisted living patient. Currently there are beds at [facility] does not accept medicaid but [facility] does and so does [facility] [phone]- CM will attempt to call both these facilities and see if this is an option. Wilma Rick RNphotocopy operator
[2021-01-16 14:05] VITALS: BP 115/62; PULSE 80; RESP 14; TEMP 36.3; O2SAT 95
[2021-01-16] MEDS: DOCUSATE 100 MG CAPSULE PO (15:00)
[2021-01-16] MEDS: ACETAMINOPHEN 325 MG TABLET 650 MG PO (16:15)
--- NOTE | 2021-01-16 17:32 | PC.NURSE ---
Day shift: Dr Cooper talked with Pt at approx 1730 about removing Dupree cath. Pt refused removal.
[2021-01-16] MEDS: ATORVASTATIN 20 MG TABLET PO (21:45)
[2021-01-16] MEDS: ALPRAZolam 0.25 MG TABLET PO (21:50)
[2021-01-16 23:49] VITALS: BP 127/72; PULSE 77; RESP 16; TEMP 36.2; O2SAT 93
[2021-01-17 06:40] VITALS: BP 136/72; PULSE 72; RESP 18; TEMP 36.2; O2SAT 94
[2021-01-17] MEDS: ASPIRIN EC 81 MG TABLET PO (06:42)
[2021-01-17] MEDS: CARBIDOPA-LEVODOPA 25/100 TABLET 1 EACH PO ×3 (06:42→16:21)
[2021-01-17] MEDS: OXYBUTYNIN 5 MG TABLET PO ×2 (06:42→18:04)
[2021-01-17] MEDS: GABAPENTIN 100 MG CAPSULE PO ×3 (06:42→21:10)
[2021-01-17] MEDS: CIPROFLOXACIN 250 MG TABLET 500 MG PO (06:42)
[2021-01-17 06:43] VITALS: BP 136/72; PULSE 74
[2021-01-17] MEDS: lisinopriL 10 MG TABLET PO (06:43)
[2021-01-17] MEDS: DOCUSATE 100 MG CAPSULE PO ×3 (06:44→20:41)
--- NOTE | 2021-01-17 10:33 | PT.IPTN ---
Physical Therapy Treatment Note M2 PT-IP Current Condition Start: 01/13/21 16:05 Freq: Status: Active Protocol: Document 01/17/21 10:08 SP (Rec: 01/17/21 14:22 SP [id number]) Physical Therapy Current Condition Current Condition Evaluation Date 01/13/21 Treatment Diagnosis generalized weakness; difficulty in ambulation Onset Date 01/12/21 M3 PT-IP Subjective Start: 01/13/21 16:05 Freq: Status: Active Protocol: Document 01/17/21 10:08 SP (Rec: 01/17/21 14:22 SP [id number]) Subjective Physical Therapy Visit Type Type Treatment Note Visit Start Time 10:08 Visit Stop Time 10:33 Total Visit Minutes 25 Number of SUPERVISOR COOLER SERVICE Visits 4 Physical Therapy Visit Comments Patient Comments Pt. agreeable to working with therapy. Patient Goals Go to assisted living center. Therapy Pain Assessment Pain When Pain Assessed During Mobility Pain Present Pain Present Pain Reported Location legs/feet Intensity 3 Pain Management Techniques Distraction,Modification of Treatment,Re-positioning, Timing of Activity with Medications Bilateral Leg Intensity 3 Pain Management Techniques Distraction,Modification of Treatment,Re-positioning, Timing of Activity with Medications M4 PT-IP Mobility and Gait Start: 01/13/21 16:05 Freq: Status: Active Protocol: Document 01/17/21 10:08 SP (Rec: 01/17/21 14:22 SP [id number]) PT-Bed Mobility Assessment Rolling Type of Rolling Log Rolling,Roll to Left Level of Assist Standby Assistance Supine to Sit Supine to Sit Contact Guard Assistance,1 Person Assistance,Head of Bed Elevated,Bedrails Scooting Scooting to Edge of Bed Contact Guard Assistance PT-Transfer Assessment Sit to and From Stand Sit to and from Stand Minimal Assistance,1 Person Assistance,Use of Upper Extremities Equipment Transfer Assistive Device Gait Belt,Front Wheeled Walker Orthotic/Prosthetic Devices or Brace: No Transfers Transfer Destination Bed,Chair,Bedside Commode Transfer Technique pt ambulated using FWW Transfer Ability Level of Assist Contact Guard Assistance, Minimal Assistance,1 Person Assistance,Use of Upper Extremities Comments Mobility Comments elevated supine 40 deg LR L w/ bed rail>sit CGA cues for encouragement and ed for log roll use of bed rail, self repositioning LEs to EOB right trunk to sit with UE on bed and rail, scoot to EOB CGA, able to complete self. Sit> Stand Min A with cues push from bed and weight shift forward over COG. Gait L to R side of bed then required seated rest at EOB, cued for full step back with FWW then reach slow descent, CGA-Min A. Sit>stand CGA from EOB walked back to chair CG-Ladonna due to wt shift, moderate UE WB on fWW decrease stance time over RLE, tends to not fully extend WB into slight flexion and tiring walk return. cued back up fully and reaaching back to sit in chair, CG-Min A, pt tends to flop in chair. Pt requested use of BSC. SPT chair> BSC use of FWW CGA. Pt able to complete very small BM , [employer] notified. sit>stand CGA, assist pericare, pt able to manage brief in stand self but LOB retro Min A to recover with ed for 1 UE on FWW and other manage brief for safety of not falling. SPT back to chair CGA, cues for proper HP. Pt seated up in chair with cushion under BLE and chair alarm donned, all needs in reach. [employer] in room. SUPERVISOR CO[employer] asked if catheter would be removed, pt stated I don't want to have to walk back and forth to bathroom I like the catheter. SUPERVISOR CO[employer]ER [employer] stated is mobilizing much better and would be a good activity to improve independence in gait strength to use bathroom for all needs . SUPERVISOR CO[employer]ER [employer] read that possible orders were removal of catheter. SUPERVISOR [employer]ER [employer] provided feedback to nurse that pt was agreeable after ed for catheter removal if nursing order were to complete. Gait Assessment Gait Gait Assistance Required: Contact Guard Assist,Minimum Assistance,1 Person Assist Distance (Feet) 10 Able to Maintain Weight Bearing Status Yes During Gait Assistive Devices Assistive Device Gait Belt,Front Wheeled Walker Orthotic/Prosthetic Devices or Brace: No Gait Deviations General Gait Pattern Antalgic,Decreased Stride Length,Decreased Feet Clearance,Flexed Trunk,Lateral Trunk Lean,Narrow Based Gait, Step-to Gait Factors Limiting Gait Function Factors Limiting Gait Function Decreased Activity Tolerance, Decreased Strength,Limited Range of Motion,Poor Balance, Poor Safety Awareness Comments Gait Comments see mobility comments PT-Balance Assessment Sitting Balance and Reactions Static Sitting Balance Ability Good Dynamic Sitting Balance Ability Fair Standing Balance and Reactions Static Standing Balance Ability Poor Dynamic Standing Balance Ability Poor Device Used FWW M5 PT-IP Objective Assessments Start: 01/13/21 16:05 Freq: Status: Active Protocol: Document 01/13/21 14:36 AB (Rec: 01/13/21 16:26 AB [id number]) Orientation Orientation/Cognition Level of Alertness Alert Orientation Name,Place,Situation Language Function Ability No Deficits Noted Safety Awareness Decreased Safety Awareness Memory Description Short Term Impaired Gross Range of Motion Lower Extremity ROM Assessment Within Functional Limits Impairments bilateral ankle DF tightness Strength Lower Extremity Strength Assessment Right Impaired Hip 3+/5 Knee 3-/5 Ankle 1/5 Muscle Tone Muscle Tone WNL Yes M6 PT-IP Treatment Start: 01/13/21 16:05 Freq: Status: Active Protocol: Document 01/17/21 10:08 SP (Rec: 01/17/21 14:22 SP [id number]) Physical Therapy Treatment Education Education Provided Safety M7 PT-IP Assessment and Plan Start: 01/13/21 16:05 Freq: Status: Active Protocol: Document 01/17/21 10:08 SP (Rec: 01/17/21 14:22 SP [id number]) PT Summary Assessment and Plan Potential Rehabilitation Potential Fair Status of Condition at Evaluation Stable Summary Impairments Pain,ROM,Strength,Balance, Coordination,Sensation,Tone, Cognition,Bed Mobility, Transfers,Gait,Activity Tolerance Progress Towards Goals Progressing Toward Goals,Slow Progress due to Activity Tolerance,Slow Progress - Other Assessment Summary CGA bed mob, CG- Ladonna transfers and gait using FWW. Recommending SNF for progressing strength during functional mobility, improving overall willingness to mobilize with PT. Goals Bed Mobility Goal Contact Guard Assistance Transfer Goal Contact Guard Assistance,Front Wheeled Walker Gait Goal Contact Guard Assistance,Front Wheel Walker Gait Distance 50 Days to Meet Goals 10 Frequency of Treatment Frequency Of Treatment Once a Day Treatment Plan Physical Therapy Treatment Plan Bed Mobility Training,Transfer Training,Gait Training, Therapeutic Exercise,Balance Retraining,Discharge Planning, Hot or Cold Pack,Neuromuscular Re-ed,Coordination Retraining ,Manual Therapy Other Recommendations and Next Treatment bed mob, transfers, gait Focus increase distance. LE ex pre mobility. Precautions Lumbar Precautions Log Roll,No Twisting,Limit Bending,Lifting Restriction of 10 lbs,Gait Belt above Incisional Area Recommendations To Nursing Amount of Assist Needed 1 Person Assist Discharge Recommendations PT Discharge Recommendations SNF Rehab Transportation Needs at Discharge Wheelchair/Cabulance
--- NOTE | 2021-01-17 10:56 | PC.NURSE ---
Day shift: Pt refused Dupree cath to be removed at approx 0930 today.
[2021-01-17] MEDS: polyethylene glycoL 3350 17 GM POWD.PACK PO ×2 (11:41→15:27)
--- NOTE | 2021-01-17 12:12 | PM.PN.1 ---
Subjective Subjective Date Patient Seen: 01/17/21 Time Patient Seen: 12:12 Interval history: ?No complaints today. Patient currently refusing verma catheter removal. She was counseled on risk of infection. Exam Vital Signs (past 8 hours): - 01/17/21 06:40 01/17/21 06:43 Temperature 97.1 F L Pulse Rate 72 74 Respiratory Rate 18 Blood Pressure 136/72 136/72 Pulse Oximetry 94 Oxygen Delivery Method Room Air Oxygen Flow Rate 0 Narrative Exam Narrative: ??GENERAL APPEARANCE: Well developed, well nourished, in no acute distress. LUNGS: Auscultation of the lungs revealed no wheezes, rhonchi, or rales. CARDIOVASCULAR: There was a regular rate and rhythm without any murmurs, gallops, rubs. Peripheral pulses were 2+ and symmetric. ABDOMEN: S NT ND MUSCULOSKELETAL: There was no tenderness or effusions noted. EXTREMITIES: No cyanosis, clubbing. trace edema bilaterally. NEUROLOGIC: Alert and oriented x 3. no focal deficits. Objective Labs Result Diagrams: 01/12/21 11:10 01/12/21 11:10 [facility] Medical History Gait instability HLD (hyperlipidemia) HTN (hypertension) Lumbar radiculopathy Right foot drop Surgical History H/O heart bypass surgery H/O lumbosacral spine surgery Family History Father Heart disease, congenital Mother Congestive heart failure Social History household members: none Smoking Status: Never smoker alcohol intake: never Assessment & Plan Assessment & Plan narrative: 1. failure to thrive ?- continue PT/OT, care management to continue working on placement options. ?- no acute or infectious causes. ?- discontinue verma 2. Parkinson's disease ?- continue home sinemet. 3. CAD,HTN,HLD ?- continue home medications. 4. Spinal stenosis ?-s/p recent spinal surgery here 09/2020 ?- continue home pain medications. Code: DNR, surrogate is designated to be her brother. Dispo: Admit obs, medically stable for return to SNF or assisted living if available. Unsafe to discharge home. Continue PT/OT I have utilized all available immediate resources to obtain, update, or review the patient's current medications. Time Spent With Patient Critical Care time: I spent a total of [] minutes of critical care time on this patient's care today; this time is exclusive of procedural time. Quality VTE Deep Vein Thrombosis/Pulmonary Embolism Present on Admission: No
[2021-01-17] MEDS: ACETAMINOPHEN 325 MG TABLET 650 MG PO ×2 (13:21→20:41)
[2021-01-17 13:47] VITALS: BP 129/71; PULSE 77; RESP 16; TEMP 35.8; O2SAT 95
[2021-01-17 19:25] VITALS: BP 118/67; PULSE 81; RESP 18; TEMP 36; O2SAT 95
[2021-01-17] MEDS: ALPRAZolam 0.25 MG TABLET PO (20:41)
[2021-01-17] MEDS: SENNOSIDES 8.6 MG TABLET 17.2 MG PO (20:41)
[2021-01-17] MEDS: ATORVASTATIN 20 MG TABLET PO (20:42)
[2021-01-18 01:58] VITALS: BP 133/76; PULSE 88; RESP 16; TEMP 36.4; O2SAT 92
[2021-01-18] MEDS: ACETAMINOPHEN 325 MG TABLET 650 MG PO (02:02)
[2021-01-18 06:22] VITALS: BP 150/84; PULSE 85; RESP 16; TEMP 36.2; O2SAT 98
[2021-01-18 06:23] VITALS: BP 150/84; PULSE 83
[2021-01-18] MEDS: lisinopriL 10 MG TABLET PO (06:23)
[2021-01-18] MEDS: CARBIDOPA-LEVODOPA 25/100 TABLET 1 EACH PO ×3 (06:24→15:59)
[2021-01-18] MEDS: OXYBUTYNIN 5 MG TABLET PO ×2 (06:24→18:00)
[2021-01-18] MEDS: GABAPENTIN 100 MG CAPSULE PO ×3 (06:24→20:53)
[2021-01-18] MEDS: ASPIRIN EC 81 MG TABLET PO (06:24)
[2021-01-18] MEDS: polyethylene glycoL 3350 17 GM POWD.PACK PO (08:10)
--- NOTE | 2021-01-18 09:50 | PC.NURSE ---
Day shift: Leia removed today at 0945 per Pt's request. Pt working with PT in her room at this time.
--- NOTE | 2021-01-18 10:00 | PT.IPTN ---
Physical Therapy Treatment Note M2 PT-IP Current Condition Start: 01/13/21 16:05 Freq: Status: Active Protocol: Document 01/17/21 10:08 SP (Rec: 01/17/21 14:22 SP [id number]) Physical Therapy Current Condition Current Condition Evaluation Date 01/13/21 Treatment Diagnosis generalized weakness; difficulty in ambulation Onset Date 01/12/21 M3 PT-IP Subjective Start: 01/13/21 16:05 Freq: Status: Active Protocol: Document 01/18/21 10:00 JG (Rec: 01/18/21 10:43 JG [id number]) Subjective Physical Therapy Visit Type Type Treatment Note Visit Start Time 09:41 Visit Stop Time 10:00 Total Visit Minutes 19 Notes Student PT participated in session with direct supervision by PT. Number of INBOUND TELEMARKETER Visits 4 Physical Therapy Visit Comments Patient Comments Pt agreeable to working with therapy. Pt agreed with nursing taking out verma before session started. Power wheelchair is now in pt room being charged. Laptop is now with pt as well which pt reports she is pleased with. Pt reports she has an overactive bladder requiring her to void 12xdaily and she prefers disposable underwear w /pads over amb to toilet for every void. Patient Goals Go to assisted living center. Therapy Pain Assessment Pain When Pain Assessed During Mobility Pain Present Pain Present Pain Reported Location legs/feet Pain Management Techniques Re-positioning,Timing of Activity with Medications Bilateral Leg Pain Management Techniques Re-positioning,Timing of Activity with Medications M4 PT-IP Mobility and Gait Start: 01/13/21 16:05 Freq: Status: Active Protocol: Document 01/18/21 10:00 EDUARDO (Rec: 01/18/21 10:43 JG [id number]) PT-Bed Mobility Assessment Rolling Type of Rolling Roll to Left Supine to Sit Supine to Sit Contact Guard Assistance Scooting Scooting to Edge of Bed Contact Guard Assistance PT-Transfer Assessment Sit to and From Stand Sit to and from Stand Minimal Assistance,1 Person Assistance,Use of Upper Extremities Equipment Transfer Assistive Device Gait Belt,Front Wheeled Walker Orthotic/Prosthetic Devices or Brace: No Transfers Transfer Destination Bed,Chair,Toilet Transfer Technique pt ambulated using FWW, gait belt bed>toilet, toilet>chair, chair<>sink Transfer Ability Level of Assist Contact Guard Assistance, Minimal Assistance,1 Person Assistance,Use of Upper Extremities Comments Mobility Comments Pt was in bed w/elevated head, supported legs w/pillows while on her laptop. Pt tolerated the bed being lowered to level w/increased LE pain which was reduced when pillows removed. Pt rolled L and supine>sit EOB w/CGA. Sit> stand w/min A 1P and FWW. Amb w/min A IP and FWW bed>toilet, toilet>chair, and chair<>sink . Pt was able to stand at sink to wash hands w/CGA for 20 sec. Gait Assessment Gait Gait Assistance Required: Contact Guard Assist,Minimum Assistance,1 Person Assist Distance (Feet) 30 Able to Maintain Weight Bearing Status Yes During Gait Assistive Devices Assistive Device Gait Belt,Front Wheeled Walker Orthotic/Prosthetic Devices or Brace: No Gait Deviations General Gait Pattern Antalgic,Decreased Stride Length,Decreased Feet Clearance,Flexed Trunk,Lateral Trunk Lean,Narrow Based Gait, Step-to Gait Factors Limiting Gait Function Factors Limiting Gait Function Decreased Activity Tolerance, Decreased Strength,Limited Range of Motion,Poor Balance, Poor Safety Awareness Comments Gait Comments see mobility comments PT-Balance Assessment Sitting Balance and Reactions Static Sitting Balance Ability Good Standing Balance and Reactions Static Standing Balance Ability Poor Dynamic Standing Balance Ability Poor Device Used FWW M5 PT-IP Objective Assessments Start: 01/13/21 16:05 Freq: Status: Active Protocol: Document 01/13/21 14:36 AB (Rec: 01/13/21 16:26 AB [id number]) Orientation Orientation/Cognition Level of Alertness Alert Orientation Name,Place,Situation Language Function Ability No Deficits Noted Safety Awareness Decreased Safety Awareness Memory Description Short Term Impaired Gross Range of Motion Lower Extremity ROM Assessment Within Functional Limits Impairments bilateral ankle DF tightness Strength Lower Extremity Strength Assessment Right Impaired Hip 3+/5 Knee 3-/5 Ankle 1/5 Muscle Tone Muscle Tone WNL Yes M6 PT-IP Treatment Start: 01/13/21 16:05 Freq: Status: Active Protocol: Document 01/18/21 10:00 AW (Rec: 01/18/21 10:48 AW [id number]) Physical Therapy Treatment Education Education Provided Precautions,Safety M7 PT-IP Assessment and Plan Start: 01/13/21 16:05 Freq: Status: Active Protocol: Document 01/18/21 10:00 AW (Rec: 01/18/21 10:48 AW [id number]) PT Summary Assessment and Plan Potential Rehabilitation Potential Fair Status of Condition at Evaluation Stable Summary Impairments Pain,ROM,Strength,Balance, Coordination,Sensation,Tone, Cognition,Bed Mobility, Transfers,Gait,Activity Tolerance Progress Towards Goals Progressing Toward Goals,Slow Progress due to Activity Tolerance,Slow Progress - Other Assessment Summary Pt requiring CGA-Min A for transfers and ambulation with FWW in the room. She has poor stability on the RLE during short bout ambulation with FWW and would benefit from / assist with all mobility and subacute rehab to improve strength and mobility independence. Goals Bed Mobility Goal Contact Guard Assistance Transfer Goal Contact Guard Assistance,Front Wheeled Walker Gait Goal Contact Guard Assistance,Front Wheel Walker Gait Distance 50 Days to Meet Goals 10 Frequency of Treatment Frequency Of Treatment Once a Day Treatment Plan Physical Therapy Treatment Plan Bed Mobility Training,Transfer Training,Gait Training, Therapeutic Exercise,Balance Retraining,Discharge Planning, Hot or Cold Pack,Neuromuscular Re-ed,Coordination Retraining ,Manual Therapy Other Recommendations and Next Treatment bed mob, transfers, gait Focus increase distance. LE ex pre mobility. Precautions Lumbar Precautions Log Roll,No Twisting,Limit Bending,Lifting Restriction of 10 lbs,Gait Belt above Incisional Area Recommendations To Nursing Amount of Assist Needed 1 Person Assist Discharge Recommendations PT Discharge Recommendations Home Health,SNF Rehab Transportation Needs at Discharge Wheelchair/Cabulance
--- NOTE | 2021-01-18 10:30 | PM.PN.1 ---
Subjective Subjective Date Patient Seen: 01/18/21 Time Patient Seen: 10:34 Interval history: No complaints today. Patient currently refusing verma catheter removal, states she may be agreeable later today. She was counseled on risk of infection. Exam Vital Signs (past 8 hours): - 01/18/21 06:22 01/18/21 06:23 Temperature 97.2 F L Pulse Rate 85 83 Respiratory Rate 16 Blood Pressure 150/84 H 150/84 H Pulse Oximetry 98 Oxygen Delivery Method Room Air Oxygen Flow Rate 0 Narrative Exam Narrative: GENERAL APPEARANCE: Well developed, well nourished, in no acute distress. LUNGS: Auscultation of the lungs revealed no wheezes, rhonchi, or rales. CARDIOVASCULAR: There was a regular rate and rhythm without any murmurs, gallops, rubs. Peripheral pulses were 2+ and symmetric. ABDOMEN: S NT ND MUSCULOSKELETAL: There was no tenderness or effusions noted. EXTREMITIES: No cyanosis, clubbing. trace edema bilaterally. NEUROLOGIC: Alert and oriented x 3. no focal deficits. Objective Labs Result Diagrams: 01/12/21 11:10 01/12/21 11:10 [facility] Medical History Gait instability HLD (hyperlipidemia) HTN (hypertension) Lumbar radiculopathy Right foot drop Surgical History H/O heart bypass surgery H/O lumbosacral spine surgery Family History Father Heart disease, congenital Mother Congestive heart failure Social History household members: none Smoking Status: Never smoker alcohol intake: never Assessment & Plan Assessment & Plan narrative: 1. failure to thrive ?- continue PT/OT, care management to continue working on placement options. ?- no acute or infectious causes. ?- discontinue verma 2. Parkinson's disease ?- continue home sinemet. 3. CAD,HTN,HLD ?- continue home medications. 4. Spinal stenosis ?-s/p recent spinal surgery here 09/2020 ?- continue home pain medications. Code: DNR, surrogate is designated to be her brother. Dispo: Admit obs, medically stable for return to SNF or assisted living if available. Unsafe to discharge home. Continue PT/OT I have utilized all available immediate resources to obtain, update, or review the patient's current medications. Time Spent With Patient Critical Care time: I spent a total of [] minutes of critical care time on this patient's care today; this time is exclusive of procedural time. Quality VTE Deep Vein Thrombosis/Pulmonary Embolism Present on Admission: No
[2021-01-18 14:00] VITALS: BP 109/56; PULSE 78; RESP 14; TEMP 36.1; O2SAT 96
--- NOTE | 2021-01-18 16:37 | CM.DANOTE ---
Addendum entered by Abbie Rick 01/18/21 17:03: RECOIL SPRING WINDER requested COVID test for potential d/c to [facility] tomorrow. JUAN ALBERTO Original Note: DCP/Note: Reviewed chart. Patient on LOS day#3 admitted to [facility] after being unable to be placed from ED (see notes for details). Patient continues to be medically stable and continues to work with therapy to get stronger. Per RN/ELINA Dillon, she spoke with Rena at [facility] last week and they are agreeable to accept patient back if she can come up with &1,300.00 to cover the month of January. RECOIL SPRING WINDER and ABHISHEK/Wilma met with patient to discuss next steps. Patient with her belongings in room along with lap top and cellular phone. Patient reports that she has difficulty using her hands due to arthritis? Patient presented d/c planning options which included motel, homeless [facility], and/or paying the amount requested by [facility] to return. Patient reports that she would have difficulty at [facility]. Patient reports that she hopes to get manager terminal placement in assisted living or skilled nursing. [facility] involved and hopefully will assist patient with long-term planning as they have said they would. In the meantime, ABHISHEK/ELINA Dillon called [facility] informing them that patient can pay the $1,300.00 dollars with personal check. Patient reports not having much more than that but can cover the amount. Provider notified. P: Anticipate d/c to [facility] if they can accept on 01-19-21. JUAN ALBERTO
[2021-01-18 17:55] LABS: COVID19 -Nasal RAPID Negative (Negative)
[2021-01-18] MEDS: SENNOSIDES 8.6 MG TABLET 17.2 MG PO (20:53)
[2021-01-18] MEDS: ALPRAZolam 0.25 MG TABLET PO (20:53)
[2021-01-18] MEDS: ATORVASTATIN 20 MG TABLET PO (20:53)
[2021-01-18 21:16] VITALS: BP 142/79; PULSE 84; RESP 17; TEMP 36.1; O2SAT 94
[2021-01-19] MEDS: CARBIDOPA-LEVODOPA 25/100 TABLET 1 EACH PO ×2 (06:27→11:17)
[2021-01-19] MEDS: ASPIRIN EC 81 MG TABLET PO (06:27)
[2021-01-19] MEDS: GABAPENTIN 100 MG CAPSULE PO (06:27)
[2021-01-19] MEDS: ACETAMINOPHEN 325 MG TABLET 650 MG PO (06:27)
[2021-01-19 06:28] VITALS: BP 133/79; PULSE 82; RESP 18; TEMP 35.9; O2SAT 91
[2021-01-19 06:30] VITALS: BP 133/79; PULSE 82
[2021-01-19] MEDS: lisinopriL 10 MG TABLET PO (06:30)
[2021-01-19] MEDS: OXYBUTYNIN 5 MG TABLET PO (06:30)
--- NOTE | 2021-01-19 07:03 | PC.NURSE ---
alert, oriented. voices needs. PRN apap given at end of shift for generalized pain. voiding w/o problems since luci pinto'hollie on day shift yesterday. anticipate d/c to snf or jail. call light w/in reach.
[2021-01-19 07:18] VITALS: BP 125/64; PULSE 70; RESP 14; TEMP 36.2; O2SAT 95
--- NOTE | 2021-01-19 09:50 | PT.IPTN ---
Physical Therapy Treatment Note M2 PT-IP Current Condition Start: 01/13/21 16:05 Freq: Status: Active Protocol: Document 01/17/21 10:08 SP (Rec: 01/17/21 14:22 SP [id number]) Physical Therapy Current Condition Current Condition Evaluation Date 01/13/21 Treatment Diagnosis generalized weakness; difficulty in ambulation Onset Date 01/12/21 M3 PT-IP Subjective Start: 01/13/21 16:05 Freq: Status: Active Protocol: Document 01/19/21 09:50 JG (Rec: 01/19/21 11:10 JG [id number]) Subjective Physical Therapy Visit Type Visit Start Time 09:25 Visit Stop Time 09:50 Total Visit Minutes 25 Notes SPT Shavon was directly supervised by PT Tiffanie Number of CLOTH PATTERN MAKER Visits 0 Physical Therapy Visit Comments Patient Comments Pt agreeable to working with therapy. Pt reported she got up to use toilet numerous times since yesterday w/ nursing assist. Patient Goals Go to assisted living center. Therapy Pain Assessment Pain Present Pain Present Denied Pain M4 PT-IP Mobility and Gait Start: 01/13/21 16:05 Freq: Status: Active Protocol: Document 01/19/21 09:50 JG (Rec: 01/19/21 11:10 JG [id number]) PT-Bed Mobility Assessment Rolling Type of Rolling Roll to Left Level of Assist Standby Assistance Supine to Sit Supine to Sit Contact Guard Assistance, Bedrails Scooting Scooting to Edge of Bed Standby Assistance PT-Transfer Assessment Sit to and From Stand Sit to and from Stand Minimal Assistance,1 Person Assistance,Use of Upper Extremities Equipment Transfer Assistive Device Gait Belt,Front Wheeled Walker Orthotic/Prosthetic Devices or Brace: No Transfers Transfer Destination Bed,Chair,Toilet,Wheelchair Transfer Technique pt amb CGA to min A w/FWW bed> toilet, toilet>hallway>chair w /wc follow Transfer Ability Level of Assist Contact Guard Assistance, Minimal Assistance,1 Person Assistance,Use of Upper Extremities Comments Mobility Comments Pt was in bed w/HOB elevated, pillows supporting LE while watching tv. Pt rolled L, supine>sit EOB using bedrail SBA. Pt sit>stand min A w/FWW. Pt amb bed>toilet min A w/FWW . Pt attempted voiding unsuccessfully. Pt amb from toilet to hallway to chair in room min A w/FWW and wc follow . Pt amb 60 ft in total w/4 rest breaks in wc. Gait Assessment Gait Gait Assistance Required: Contact Guard Assist,Minimum Assistance,1 Person Assist Distance (Feet) 60 Able to Maintain Weight Bearing Status Yes During Gait Assistive Devices Assistive Device Gait Belt,Front Wheeled Walker Orthotic/Prosthetic Devices or Brace: No Gait Deviations General Gait Pattern Antalgic,Decreased Stride Length,Decreased Feet Clearance,Flexed Trunk,Lateral Trunk Lean,Narrow Based Gait, Step-to Gait Factors Limiting Gait Function Factors Limiting Gait Function Decreased Activity Tolerance, Decreased Strength,Limited Range of Motion,Poor Balance, Poor Safety Awareness Comments Gait Comments see mobility comments PT-Balance Assessment Sitting Balance and Reactions Static Sitting Balance Ability Good Dynamic Sitting Balance Ability Poor Standing Balance and Reactions Static Standing Balance Ability Poor Dynamic Standing Balance Ability Poor Device Used FWW M5 PT-IP Objective Assessments Start: 01/13/21 16:05 Freq: Status: Active Protocol: Document 01/13/21 14:36 AB (Rec: 01/13/21 16:26 AB [id number]) Orientation Orientation/Cognition Level of Alertness Alert Orientation Name,Place,Situation Language Function Ability No Deficits Noted Safety Awareness Decreased Safety Awareness Memory Description Short Term Impaired Gross Range of Motion Lower Extremity ROM Assessment Within Functional Limits Impairments bilateral ankle DF tightness Strength Lower Extremity Strength Assessment Right Impaired Hip 3+/5 Knee 3-/5 Ankle 1/5 Muscle Tone Muscle Tone WNL Yes M6 PT-IP Treatment Start: 01/13/21 16:05 Freq: Status: Active Protocol: Document 01/19/21 09:50 JAldair (Rec: 01/19/21 11:10 EDUARDO [id number]) Physical Therapy Treatment Other Treatments Other Treatment Performed In chair after gait training, pt completed: alt marching 1x10, alt leg ext 1x10, ankle pumps 1x8, resisted knee flex 2x3 sec R 5x3 sec L, alt shld flex w/breathing 1x8, cross arm seated balance w/breathing 1x30 sec. M7 PT-IP Assessment and Plan Start: 01/13/21 16:05 Freq: Status: Active Protocol: Document 01/19/21 09:50 JG (Rec: 01/19/21 11:10 EDUARDO [id number]) PT Summary Assessment and Plan Potential Rehabilitation Potential Fair Status of Condition at Evaluation Stable Summary Impairments Pain,ROM,Strength,Balance, Coordination,Sensation,Tone, Cognition,Bed Mobility, Transfers,Gait,Activity Tolerance Progress Towards Goals Progressing Toward Goals,Slow Progress due to Activity Tolerance,Slow Progress - Other Assessment Summary Pt continues requiring close guard assist to min assist for transfers and ambulation with FWW. She has poor balance in standing and amb requiring frequent rest breaks in wheelchair. She also exhibits impair gait patterns which decrease her efficiency. She would benefit from 24/ assist with all mobility and subacute rehab to improve strength and mobility independence. Goals Bed Mobility Goal Contact Guard Assistance Transfer Goal Contact Guard Assistance,Front Wheeled Walker Gait Goal Contact Guard Assistance,Front Wheel Walker Gait Distance 50 Days to Meet Goals 10 Frequency of Treatment Frequency Of Treatment Once a Day Treatment Plan Physical Therapy Treatment Plan Bed Mobility Training,Transfer Training,Gait Training, Therapeutic Exercise,Balance Retraining,Discharge Planning, Hot or Cold Pack,Neuromuscular Re-ed,Coordination Retraining ,Manual Therapy Other Recommendations and Next Treatment bed mob, transfers, gait Focus increase distance. LE ex pre mobility. Precautions Lumbar Precautions Log Roll,No Twisting,Limit Bending,Lifting Restriction of 10 lbs Recommendations To Nursing Amount of Assist Needed 1 Person Assist,2 Person Assist Discharge Recommendations PT Discharge Recommendations Home Health,SNF Rehab Transportation Needs at Discharge Wheelchair/Cabulance Treatment was provided by CANDICE Michelle and supervised by Tiffanie Becerra, PT. I personally reviewed this note and agree with its contents.
[2021-01-19] MEDS: polyethylene glycoL 3350 17 GM POWD.PACK PO (11:16)
--- NOTE | 2021-01-19 11:19 | PM.PN.1 ---
Subjective Subjective Interval history: Patient denies any complaints this morning. She reports eating and drinking all right. Denies any issues with bladder/bowel movements. She is aware that she is pending placement to SNF. Exam Vital Signs (past 8 hours): - 01/19/21 06:28 01/19/21 06:30 01/19/21 07:18 Temperature 96.7 F L 97.1 F L Pulse Rate 82 82 70 Respiratory Rate 18 14 Blood Pressure 133/79 133/79 125/64 Pulse Oximetry 91 95 Oxygen Delivery Method Room Air Oxygen Flow Rate 0 Const Other: Sitting up in bed comfortably upon entering the room, eating breakfast. HENMT Other: Areas of alopecia appreciated over scalp. Eyes Other: No scleral icterus appreciated. Resp Other: Lungs clear to auscultation bilaterally. Cardio Other: Regular rate and rhythm. S1 and S2 heart sounds auscultated with no extra heart sounds or murmurs appreciated. No peripheral edema noted. GI Other: Soft, non-distended, non-tender. Bowel sounds present. Skin Other: No gross skin lesions noted. Objective Labs Result Diagrams: 01/12/21 11:10 01/12/21 11:10 Labs: Laboratory Results - last 24 hr 01/18/21 17:30 SARS-CoV-2 (PCR) Negative [facility] Medical History Gait instability HLD (hyperlipidemia) HTN (hypertension) Lumbar radiculopathy Right foot drop Surgical History H/O heart bypass surgery H/O lumbosacral spine surgery Family History Father Heart disease, congenital Mother Congestive heart failure Social History household members: none Smoking Status: Never smoker alcohol intake: never Assessment & Plan Assessment & Plan narrative: 1. Hx of lower lumbar spinal stenosis surgery, September 2020 2. Hypertension 3. hx of CABG, unknown coronary distribution 4. Hx of urinary incontinence 5. Hx of Parkinson's disease 1. Has been in stable condition since the surgery. However, needs a great deal of help in caring for herself. Pending placement in a prison facility. 2. Has remained stable on lisinopril 10 mg daily. 3. Secondary prevention baby aspirin and atorvastatin on-board. 4. Stable on oxybutynin. 5. Patient taking carbidopa-levodopa. Time Spent With Patient Critical Care time: I spent a total of [] minutes of critical care time on this patient's care today; this time is exclusive of procedural time. Quality VTE Deep Vein Thrombosis/Pulmonary Embolism Present on Admission: No
--- NOTE | 2021-01-19 12:15 | CM.SWNOTE ---
LOGISTICS PROJECT MANAGER/DCP Note LOGISTICS PROJECT MANAGER is informed that patient is assigned [facility] employment evaluator/case manager Elizabeth Adamesmichellejoya (Ph. # [phone]) LOGISTICS PROJECT MANAGER informs DCP in acute care who informs LOGISTICS PROJECT MANAGER that patient will be paying a portion of her bill to return to [facility] today. LOGISTICS PROJECT MANAGER calls [facility] [place] evaluator/case manager and leaves with this information and requests return call. LOGISTICS PROJECT MANAGER informs [facility] employment evaluator/case manager about patient's d/c to [facility] today as well. Plan: Patient to d/c to [facility] SNF rehab by paying a portion of her bill, LOGISTICS PROJECT MANAGER to f/u with agencies associated with patient. VANESA Brian
--- NOTE | 2021-01-19 14:47 | CM.DPC ---
DCP/continued: Reviewed chart. POWER PROJECT MANAGER spoke with Rena at [facility]. She confirms that they can take patient back at [facility] if she is willing to pay them $1,300.00. As mentioned in previous note patient is agreeable to pay that much to return to [facility] vs. the possibility of going to motel or [facility]. POWER PROJECT MANAGER met again with patient this AM to confirm with her that she is will to pay out of pocket $1,300.00 patient is agreeable and reports that she does have this amount in the bank. Asked provider for transfer orders and completed PASRR. Patient scheduled to be picked up today at approximately 2:00pm. RN updated. P: [facility] today. JUAN ALBERTO
--- NOTE | 2021-01-19 14:59 | PC.NURSE ---
Pt d/c via wheelchair to [facility]; @ [phone] this RN reported to Santi's RN, Vilma
--- NOTE | 2021-01-19 22:46 | PM.DS.1 ---
History of Present Illness History of Present Illness Chief complaint: Need Social Work Narrative: This is a 80-year-old female with a past medical history of CAD, hypertension, hyperlipidemia, Parkinson's, recent spinal surgery he was discharged to retirement facility a few months ago. She had been there since but left after she felt that she was not getting enough physical therapy. She instead went to a hotel, where she was apparently kicked out due to the room's condition. She has been in the ER pending placement for a retirement facility since January 12. No facility has currently be found and she is currently pending placement. She is admitted at this time under observation status to continue looking for placement possibilities. She has been seen by physical therapy and recommended for retirement facility. Discharge Providers Provider Date of admission: 01/15/21 09:25 Discharge Date: 01/19/21 Primary care physician: Marci Soliz PA-C Consults: 01/12/21 10:36 [place] [facility] Stat Comment: 01/13/21 13:28 Consult to Physical Therapy Evaluate & Treat Comment: ambulation/ fall risk/ strength Physician Instructions: Evaluate and Treat Discharge provider: Precious Sainz MD Summary Hospital Course Discharge Diagnosis: 1. Hx of lower lumbar spinal stenosis surgery, September 2020 2. Hypertension 3. hx of CABG, unknown coronary distribution 4. Hx of urinary incontinence 5. Hx of Parkinson's disease Hospital Course: This is a 80-year-old female with a past medical history of CAD, hypertension, hyperlipidemia, Parkinson's, recent spinal surgery he was discharged to retirement facility a few months ago. She had been there since but left after she felt that she was not getting enough physical therapy. She instead went to a hotel, where she was apparently kicked out due to the room's condition. She has been in the ER pending placement for a retirement facility since January 12. No facility has currently be found and she is currently pending placement. She is admitted at this time under observation status to continue looking for placement possibilities. She has been seen by physical therapy and recommended for retirement facility. Exam Vital Signs (past 8 hours): Oxygen Delivery Method Room Air Oxygen Flow Rate 0 Objective Labs Result Diagrams: 01/12/21 11:10 01/12/21 11:10 [facility] Medical History Gait instability HLD (hyperlipidemia) HTN (hypertension) Lumbar radiculopathy Right foot drop Surgical History H/O heart bypass surgery H/O lumbosacral spine surgery Family History Father Heart disease, congenital Mother Congestive heart failure Social History household members: none Smoking Status: Never smoker alcohol intake: never Discharge Assessment & Plan Assessment and Plan Assessment: 1. Hx of lower lumbar spinal stenosis surgery, September 2020 2. Hypertension 3. hx of CABG, unknown coronary distribution 4. Hx of urinary incontinence 5. Hx of Parkinson's disease Plan of Treatment: 1. Has been in stable condition since the surgery. However, needs a great deal of help in caring for herself. Pending placement in a retirement facility. 2. Has remained stable on lisinopril 10 mg daily. 3. Secondary prevention baby aspirin and atorvastatin on-board. 4. Stable on oxybutynin. 5. Patient taking carbidopa-levodopa. Discharge Plan Discharge Plan Patient Disposition: SNF I certify the postop hospital retirement care is medically necessary on a continuing basis for any conditions for which he/ she received care during this hospitalization.: Yes The receiving facility has agreed to accept transfer and provide medical treatment.: Yes Discharge orders & Medications Prescriptions: Continued hydroxyzine pamoate 25 mg Capsule 25 mg PO Q4HR PRN (Reason: Nausea And Vomiting, spasm) Qty: 30 0RF atorvastatin 20 mg tablet 20 mg PO BEDTIME 0RF gabapentin 100 mg capsule 100 mg PO TID 0RF carbidopa-levodopa 25-100 mg tablet 1 tab PO TID 0RF oxybutynin chloride 5 mg tablet 5 mg PO BID 0RF aspirin 81 mg Capsule 81 mg PO DAILY 0RF acetaminophen 325 mg Tablet 650 mg PO Q4H PRN (Reason: fever/mild pain) 0RF Rx Instructions: do not exceed 3000 mg in 24 hour period. lisinopril 10 mg tablet 10 mg PO DAILY 0RF albuterol sulfate 90 mcg/actuation HFA aerosol inhaler 1 - 2 puff inhalation DIRECTED PRN (Reason: Wheezing) 0RF Follow up/Referrals: Marci Soliz PA-C [Primary Care Provider] - Discharge Data Primary Care Provider: Marci Soliz Attending Provider: García Cooper VTE Deep Vein Thrombosis/Pulmonary Embolism Present on Admission: No
== END 2021-01-19 14:15 ==
LOC: ED 01-15 09:25 → AC 01-15 09:26
PROVIDERS: Emergency Medicine; Student in an Organized Health Care Education/Training Program; Admitting Provider Internal Medicine; Emergency Provider Emergency Medicine; PCP Physician Assistant Medical; Referring Provider Emergency Medicine; Visit Provider Internal Medicine
DX: R62.7 Adult failure to thrive (principal); G20 Parkinson's disease; E78.5 Hyperlipidemia, unspecified; I10 Essential (primary) hypertension; Z95.1 Presence of aortocoronary bypass graft; I25.10 Atherosclerotic heart disease of native coronary artery without angina pectoris; Z66 Do not resuscitate; M21.371 Foot drop, right foot; Z98.890 Other specified postprocedural states; M48.00 Spinal stenosis, site unspecified; R32 Unspecified urinary incontinence; R15.9 Full incontinence of feces; Z20.822 Contact with and (suspected) exposure to COVID-19
CPT/HCPCS: 36415; 74177; 80053; 81001; 85025; 87086; 87186; 87635; 97110; 97116; 97162; 97530; 99284; C9803; G0378; J1650; Q9967

== ENCOUNTER → 2021-06-23 17:42 | Outpatient (ROUT) | payer MEDICARE, OTHER, MEDICAID, SELFPAY ==
[2021-06-23 18:08] LABS: Appearance Urine UA CLOUDY; Bilirubin Urine UA NEGATIVE (NEGATIVE); Color Urine UA YELLOW; Glucose Urine UA NEGATIVE (Negative); Ketones Urine UA NEGATIVE (NEGATIVE); Leukocyte Esterase Urine UA 2+ (NEGATIVE); Nitrite Urine UA POSITIVE (Negative); Occult Blood Urine UA TRACE-LYSED (Negative); Protein Urine UA TRACE (Negative); Urobilinogen Urine UA 0.2 E.U./dL (0.2)
[2021-06-23 18:16] LABS: pH Urine UA 8.5 (4.5-8.0)
[2021-06-23 18:18] LABS: RBC Urine 0-1/HPF (0-5/HPF)
[2021-06-23 18:19] LABS: Amorphous Sediment Urine 2+; Bacteria Urine Moderate (10-30); Culture Indicated Urine Specimen Cultured; Mucus Urine 1+ (Negative); Squamous Epithelial Cell Urine 1-5 /HPF (0-5/HPF); WBC Urine 5-10/HPF (0-5/HPF)
== END ==
PROVIDERS: PCP Physician Assistant Medical; Visit Provider Physician Assistant
DX: N39.0 Urinary tract infection, site not specified (principal)
CPT/HCPCS: 81001; 87086

== ENCOUNTER → 2021-07-06 20:14 | Outpatient (ROUT) | payer MEDICARE, OTHER, MEDICAID, SELFPAY ==
[2021-07-06 20:30] LABS: Bilirubin Urine UA NEGATIVE (NEGATIVE); Color Urine UA YELLOW; Glucose Urine UA NEGATIVE (Negative); Ketones Urine UA NEGATIVE (NEGATIVE); Leukocyte Esterase Urine UA 1+ (NEGATIVE); Nitrite Urine UA POSITIVE (Negative); Occult Blood Urine UA 3+ (Negative); Protein Urine UA 2+ (Negative); Urobilinogen Urine UA 0.2 E.U./dL (0.2)
[2021-07-06 20:32] LABS: Appearance Urine UA CLOUDY; pH Urine UA 7.5 (4.5-8.0)
[2021-07-06 20:36] LABS: Amorphous Sediment Urine 1+; Bacteria Urine Many (>30); Culture Indicated Urine Specimen Cultured; RBC Urine 10-30/HPF (0-5/HPF); WBC Urine 5-10/HPF (0-5/HPF)
== END ==
PROVIDERS: PCP Physician Assistant Medical; Visit Provider Physician Assistant
DX: N39.0 Urinary tract infection, site not specified (principal)
CPT/HCPCS: 81001; 87077; 87086